=== PATIENT | male | born 1935 | race Caucasian/White ===

== ENCOUNTER → 2016-02-11 | Outpatient (REF) | payer MEDICARE, OTHER ==
[~2016-02-11] MED LIST: ARAV20TA PO; BENA20TA2 PO; BENA20TA6 PO; FLOM5CAP PO; LIPI20TA PO; PRED1TABL PO; PROS5TAB PO; VITA10002 PO; XARE20TA PO
== END ==
LOC: M LAB REF 18:07
PROVIDERS: ATTEND Surgery
DX: C44.612 Basal cell carcinoma of skin of right upper limb, including shoulder (principal)

== ENCOUNTER → 2016-02-20 | Outpatient (CLI) | payer MEDICARE, OTHER ==
--- NOTE | 2016-03-06 02:02 | ECWPNPC ---
PATIENT NAME: DEMETRIS DUFF : 1935 GENDER: MALE VISIT DATE: 02/20/2016 DISCHARGE DATE: 02/20/16 1111 VISIT LOCKED DATE TIME: PHYSICIAN: NHI VILLASENOR PHYSICIAN PAGER NO: [phone] RESOURCE: NHI VILLASENOR REASON FOR APPOINTMENT 1. BACK HISTORY OF PRESENT ILLNESS HISTORY OF PRESENT ILLNESS: HERE FOR F/U.HAD TPI LEFT NECK ON 11-21-15.REPORTS 2 DAYS OF MARKED IMPROVEMENT AND PAIN RETURNED BUT TO A LESSER DEGREE OF INTENSITY.RATING PAIN VAS 5-7/10..PATIENT INQUIRING ABOUT OTHER OPTIONS FOR PAIN CONTROL.INTERESTED IN SURGERY BUT ON THE OTHER HAND HE DOESNT WANT IT.ALSO DISCUSSED MRI OF CERVICAL SPINE.HE WOULD LIKE TO TALK WITH HIS PRIMARY CARE BEFORE PURSUING ANY MORE TREATMENT.HE DOES FEEL CYMBALTA IS SOMEWHAT HELPFUL FOR GENERALIZED JOINT PAIN. PAIN THE PATIENT DESCRIBES THE PAIN... THE PATIENT DESCRIBES THE PAIN... FALL RISK SCREENING: SCREENING :NO FALLS IN THE PAST YEAR CURRENT MEDICATIONS TAKING PREDNISONE 8 MG TABLET 1 TABLET WITH FOOD OR MILK ORALLY ONCE A DAY TAKING FLOMAX 0.4 MG CAPSULE 1 CAPSULE 30 MINUTES AFTER THE SAME MEAL EACH DAY ORALLY ONCE A DAY TAKING BENAZEPRIL HCL 20 MG TABLET 1 TABLET ORALLY ONCE A DAY TAKING VITAMIN B12 1000 MCG TABLET 1 TABLET ORALLY ONCE A DAY TAKING TYLENOL ARTHRITIS PAIN 650 MG TABLET EXTENDED RELEASE 2 TABLETS ORALLY THREE TIMES A DAY NEEDED TAKING MUPIROCIN 2 % OINTMENT 1 APPLICATION TO AFFECTED AREA EXTERNALLY BID PRN TAKING PROSCAR 5 MG TABLET TAKE ONE TABLET BY MOUTH EVERY DAY TAKING CYMBALTA 30 MG CAPSULE DELAYED RELEASE PARTICLES 1 CAPSULE ORALLY ONCE A DAY TAKING SOMA 350 MG TABLET 1 ORALLY AT BEDTIME IF NEEDED FOR PAIN TAKING XARELTO 20 MG TABLET 1 TAB(S) ORAL DAILY TAKING FUROSEMIDE 20 MG TABLET 1/2 TABLET ORALLY ONCE A DAY NEEDED FOR EDEMA TAKING ARAVA 20 MG TABLET 1 TABLET ORALLY ONCE A DAY TAKING LIPITOR 20 MG TABLET 1 TABLET ORALLY ONCE A DAY NOT-TAKING ATORVASTATIN CALCIUM 20 MG TABLET 1 TABLET ORALLY ONCE A DAY, NOTES: 1016 AM MEDICATION LIST REVIEWED AND RECONCILED WITH THE PATIENT PAST MEDICAL HISTORY 01/20/07 ACUTE THROMBOSIS L LESSER SAPHENOUS VEIN (SUPERFICIAL THROMBOPHLEBITIS) NO DVT DVT/PE 01/16 HYPERTENSION HYPERCHOLESTEROLEMIA 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 SERONEG RA-- WAS STARTED [place] IN [place], ALL RHEUM TESTS WERE NEG (RAIZA, RF ETC). HAS INITIAL RESPONSE SO WAS PRESUMED HE HAS INFLAMMATORY ARTHRITIS OF SOME KIND. ANEMIA 11/23, IRON STUDIES NL ALLERGIES N.K.D.A. SOCIAL HISTORY GENERAL: TOBACCO USE ARE YOU A:NONSMOKER LEARNING BARRIERS / SPECIAL NEEDS ORIENTED TO PLAN OF CARE: PATIENT, PAIN MANAGEMENT PATIENT, ORIENTED TO PLAN OF CARE: PATIENT, PAIN MANAGEMENT PATIENT. NEW PATIENT PAIN DIARY TODAY'S VISITNOTES FROM 0-10, WHAT LEVEL IS YOUR PAIN TODAY?0 PAIN CLINIC PFS, CLERGY, PUBLIC HEALTH REFERRALS PFS REFERRAL NEEDED?NO CLERGY REFERRAL NEEDED?NO PUBLIC HEALTH REFERRAL NEEDED?NO WAS THE PROVIDER NOTIFIED OF ANY PERTINENT INFO?NO PFS REFERRAL NEEDED?NO CLERGY REFERRAL NEEDED?NO PUBLIC HEALTH REFERRAL NEEDED?NO WAS THE PROVIDER NOTIFIED OF ANY PERTINENT INFO?NO REVIEW OF SYSTEMS CONSTITUTIONAL: ANY CHANGE IN YOUR MEDICAL CONDITION? NO . CHILLS NO . FEVER NO . INFECTION: DO YOU HAVE NEW INFECTIONS? NO . DO YOU HAVE HISTORY OF MRSA? NO . MUSCULOSKELETAL: ANY NEW PATTERNS OF PAIN OR NUMBNESS? NO . GASTROENTEROLOGY: ANY NEW CHANGE IN BOWEL CONTROL? NO . GENITOURINARY: ANY NEW CHANGE IN BLADDER CONTROL? NO . IS THERE A CHANCE YOU COULD BE ? NO . HEMATOLOGY/LYMPH: DO YOU TAKE ANY BLOOD THINNERS? (FOR EXAMPLE- COUMADIN, PLAVIX, AGGRENOX, PLATEL, PRADAXA, OR XARELTO) YES, XARELTO . WHEN WAS YOUR LAST DOSE? DATE:02/19/16 TIME: 2200 . NEUROLOGY: HAVE YOU FALLEN IN THE PAST 6 MONTHS? NO . ANY NEW EXTREMITY NUMBNESS OR WEAKNESS? NO . CARDIOLOGY: DO YOU HAVE A PACEMAKER OR DEFIBRILLATOR? NO . RESPIRATORY: HAVE YOU BEEN SICK IN THE PAST WEEK? NO . FEVER NO . FLU LIKE SYMPTOMS? NO . COUGH NO . INTEGUMENTARY: DO YOU HAVE ANY RASHES OR OPEN SORES? NO . ALLERGIC/IMMUNO: ARE YOU ALLERGIC TO SHELLFISH OR IV DYE? NO . ANY NEW ALLERGIES? NO . PSYCHIATRIC: DO YOU HAVE THOUGHTS OF HURTING YOURSELF OR SOMEONE ELSE? NO . ARE YOU ABUSED, NEGLECTED, OR IN AN UNSAFE ENVIRONMENT? NO . ENDOCRINOLOGY: ARE YOU DIABETIC? NO . OTHER: DO YOU NEED ANY PRESCRIPTIONS? YES . IF YES, PLEASE LIST: CYMBALTA . ANY NEW PROBLEMS WITH YOUR MEDICATIONS? NO . WHEN DID YOU LAST EAT? ____ . WHEN DID YOU LAST DRINK? ____ . WHAT DID YOU LAST DRINK? ____ . NAME OF PERSON DRIVING YOU HOME? ____ . DO YOU HAVE ANY OTHER QUESTIONS OR CONCERNS NO . REVIEWED BY: PROVIDER: NHI THOMAS . VITAL SIGNS WT 172 LBS, HT 67 IN, BMI 26.94 INDEX, BP 127/82 MM HG, HR 72 /MIN, RR 18 /MIN, TEMP 98.5 F, OXYGEN SAT % 97%, NA INITIALS SC 10:20, REVIEWED BY: CS. EXAMINATION GENERAL EXAMINATION: LUNGS:LUNG SOUNDS ARE CLEAR. HEART:HEART RATE REGULAR. MUSCULOSKELETAL:*, MUSCLE STRENGTH TESTING 5/5 BILATERAL LOWER EXTREMITIES. PALPATION: MILD PAIN OVER L/S SPINE. MILD PAIN OVER L/S PARSPINALS. 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 THEY WERE ADVISED THAT THIS WILL IMPROVE WEIGHT LOSS AND ALSO DEPRESSION/FIBROMYALGIA SYMPTOMS. ADVISED TO WALK 10 MINUTES EVERY OTHER DAY ON A FLAT SURFACE. EMPHASIZED THE IMPORTANCE OF DOING THIS CONSISTANTLY AND NOT SPORATICALLY TO AVOID INJURY. STRONG ADVISED NOT TO DO MORE THAN 10 MINUTES EVERY OTHER DAY FOR THE FIRST 4 WEEKS.PATIENT REFUSED INFORMATION REGUARDING LUMBAR FACET BLOCK. PROCEDURE CODES G8730 PAIN ASSESS POS TOOL F/U PLAN DOC G8427 DOC MEDS VERIFIED W/PT OR RE FA211 ESTABILISHED PATIENT [facility] FACILITY CHARGE FOLLOW UP 2WK POST (REASON: BILAT. LUMBAR FACET THERAPEU) ELECTRONICALLY SIGNED BY WILLIAM ERICKSON ON 03/03/2016 AT 11:27 AM EST DISCLAIMER : THIS IS A VISIT SUMMARY EXTRACTED FROM THE [employer] CHART. IT IS NOT A COPY OF THE [employer] PROGRESS NOTE. YANET
== END ==
LOC: M PAIN 10:00
PROVIDERS: ATTEND Nurse Practitioner Family
DX: Z09 Encounter for follow-up examination after completed treatment for conditions other than malignant neoplasm (principal); M48.06 Spinal stenosis, lumbar region; M19.90 Unspecified osteoarthritis, unspecified site; I12.9 Hypertensive chronic kidney disease with stage 1 through stage 4 chronic kidney disease, or unspecified chronic kidney disease; N18.3 Chronic kidney disease, stage 3 (moderate); E78.00 Pure hypercholesterolemia, unspecified; E55.9 Vitamin D deficiency, unspecified; M51.34 Other intervertebral disc degeneration, thoracic region; M50.30 Other cervical disc degeneration, unspecified cervical region; D84.9 Immunodeficiency, unspecified; I87.2 Venous insufficiency (chronic) (peripheral); D64.9 Anemia, unspecified; Z79.01 Long term (current) use of anticoagulants; Z79.52 Long term (current) use of systemic steroids; Z79.891 Long term (current) use of opiate analgesic; Z79.899 Other long term (current) drug therapy; Z92.241 Personal history of systemic steroid therapy

== ENCOUNTER → 2016-03-06 | Outpatient (CLI) | payer MEDICARE, OTHER ==
[~2016-03-06] MED LIST changes: +BUPIVACAINE HCL 0.25% 30 ML VIAL As Ordered ONE; +ISOVUE-M 300 61% 15ML VIAL (Q9967) As Ordered ONE; +LIDOCAINE 1% SDV INJ 30 ML VIAL As Ordered ONE; +TRIAMCINOLONE ACETONIDE SUSP 40 MG/ML VIAL (J3301) As Ordered ONE
--- NOTE | 2016-03-06 10:52 | REP ---
PARTIAL LUMBAR SPINE SERIES: Two views. HISTORY: Facet injection for pain. 24 seconds of fluoroscopy time is reported. FINDINGS: A sequence of two fluoroscopically obtained intraprocedural spot radiographs of the lumbar spine document needle position and contrast injection associated with lumbar facet injection procedure. Signed by Romie Herrera MD 03/06/2016 01:51 P
--- NOTE | 2016-03-10 00:30 | ECWPNPC ---
PATIENT NAME: DEMETRIS DUFF : 1935 GENDER: MALE VISIT DATE: 03/06/2016 DISCHARGE DATE: 03/06/16 1037 VISIT LOCKED DATE TIME: PHYSICIAN: AURY RIVAS PHYSICIAN PAGER NO: [phone] RESOURCE: AURY RIVAS REASON FOR APPOINTMENT 1. LUMBAR FACET HISTORY OF PRESENT ILLNESS HISTORY OF PRESENT ILLNESS: PAIN THE PATIENT DESCRIBES THE PAIN... FALL RISK SCREENING: SCREENING :NO FALLS IN THE PAST YEAR CURRENT MEDICATIONS TAKING FLOMAX 0.4 MG CAPSULE 1 CAPSULE 30 MINUTES AFTER THE SAME MEAL EACH DAY ORALLY ONCE A DAY, NOTES: 03/06/16699 TAKING BENAZEPRIL HCL 20 MG TABLET 1 TABLET ORALLY ONCE A DAY, NOTES: 03/06/16699 TAKING VITAMIN B12 1000 MCG TABLET 1 TABLET ORALLY ONCE A DAY, NOTES: 03/05/16699 TAKING TYLENOL ARTHRITIS PAIN 650 MG TABLET EXTENDED RELEASE 2 TABLETS ORALLY THREE TIMES A DAY NEEDED, NOTES: 03/05/162199 TAKING MUPIROCIN 2 % OINTMENT 1 APPLICATION TO AFFECTED AREA EXTERNALLY BID PRN, NOTES: 2-3 DAYS TAKING PROSCAR 5 MG TABLET TAKE ONE TABLET BY MOUTH EVERY DAY , NOTES: 03/06/16699 TAKING SOMA 350 MG TABLET 1 ORALLY AT BEDTIME IF NEEDED FOR PAIN, NOTES: 3-4 DAYS TAKING XARELTO 20 MG TABLET 1 TAB(S) ORAL DAILY, NOTES: 03/02/162199 TAKING FUROSEMIDE 20 MG TABLET 1/2 TABLET ORALLY ONCE A DAY NEEDED FOR EDEMA, NOTES: 03/05/16699 TAKING ARAVA 20 MG TABLET 1 TABLET ORALLY ONCE A DAY, NOTES: 03/06/16699 TAKING LIPITOR 20 MG TABLET 1 TABLET ORALLY ONCE A DAY, NOTES: 03/06/16699 TAKING CYMBALTA 30 MG CAPSULE DELAYED RELEASE PARTICLES 1 CAPSULE ORALLY ONCE A DAY, NOTES: 03/06/16699 TAKING PREDNISONE 5 MG TABLET 1 TABLET WITH FOOD OR MILK ORALLY ONCE A DAY, NOTES: 03/06/16699 NOT-TAKING ATORVASTATIN CALCIUM 20 MG TABLET 1 TABLET ORALLY ONCE A DAY, NOTES: 10-12-16 AM MEDICATION LIST REVIEWED AND RECONCILED WITH THE PATIENT PAST MEDICAL HISTORY 01/20/07 ACUTE THROMBOSIS L LESSER SAPHENOUS VEIN (SUPERFICIAL THROMBOPHLEBITIS) NO DVT DVT/PE 01/16 HYPERTENSION HYPERCHOLESTEROLEMIA 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 SERONEG RA-- WAS STARTED [place] IN [place], ALL RHEUM TESTS WERE NEG (RAIZA, RF ETC). HAS INITIAL RESPONSE SO WAS PRESUMED HE HAS INFLAMMATORY ARTHRITIS OF SOME KIND. ANEMIA 11/23, IRON STUDIES NL ALLERGIES N.K.D.A. SURGICAL HISTORY SOCIAL HISTORY GENERAL: TOBACCO USE ARE YOU A:NONSMOKER LEARNING BARRIERS / SPECIAL NEEDS ORIENTED TO PLAN OF CARE: PATIENT, PAIN MANAGEMENT PATIENT, ORIENTED TO PLAN OF CARE: PATIENT, PAIN MANAGEMENT PATIENT. NEW PATIENT PAIN DIARY TODAY'S VISITNOTES FROM 0-10, WHAT LEVEL IS YOUR PAIN TODAY?0 PAIN CLINIC PFS, CLERGY, PUBLIC HEALTH REFERRALS PFS REFERRAL NEEDED?NO CLERGY REFERRAL NEEDED?NO PUBLIC HEALTH REFERRAL NEEDED?NO WAS THE PROVIDER NOTIFIED OF ANY PERTINENT INFO?NO PFS REFERRAL NEEDED?NO CLERGY REFERRAL NEEDED?NO PUBLIC HEALTH REFERRAL NEEDED?NO WAS THE PROVIDER NOTIFIED OF ANY PERTINENT INFO?NO HOSPITALIZATION/MAJOR DIAGNOSTIC PROCEDURE DENIES PAST HOSPITALIZATION REVIEW OF SYSTEMS CONSTITUTIONAL: ANY CHANGE IN YOUR MEDICAL CONDITION? NO . CHILLS NO . FEVER NO . INFECTION: DO YOU HAVE NEW INFECTIONS? NO . DO YOU HAVE HISTORY OF MRSA? NO . MUSCULOSKELETAL: ANY NEW PATTERNS OF PAIN OR NUMBNESS? NO . GASTROENTEROLOGY: ANY NEW CHANGE IN BOWEL CONTROL? NO . GENITOURINARY: ANY NEW CHANGE IN BLADDER CONTROL? NO . IS THERE A CHANCE YOU COULD BE ? NO . HEMATOLOGY/LYMPH: DO YOU TAKE ANY BLOOD THINNERS? (FOR EXAMPLE- COUMADIN, PLAVIX, AGGRENOX, PLATEL, PRADAXA, OR XARELTO) YES, XARELTO . WHEN WAS YOUR LAST DOSE? DATE: 03/02/16 TIME: 2200 . NEUROLOGY: HAVE YOU FALLEN IN THE PAST 6 MONTHS? NO . ANY NEW EXTREMITY NUMBNESS OR WEAKNESS? NO . CARDIOLOGY: DO YOU HAVE A PACEMAKER OR DEFIBRILLATOR? NO . RESPIRATORY: HAVE YOU BEEN SICK IN THE PAST WEEK? NO . FEVER NO . FLU LIKE SYMPTOMS? NO . COUGH NO . INTEGUMENTARY: DO YOU HAVE ANY RASHES OR OPEN SORES? NO . ALLERGIC/IMMUNO: ARE YOU ALLERGIC TO SHELLFISH OR IV DYE? NO . ANY NEW ALLERGIES? NO . PSYCHIATRIC: DO YOU HAVE THOUGHTS OF HURTING YOURSELF OR SOMEONE ELSE? NO . ARE YOU ABUSED, NEGLECTED, OR IN AN UNSAFE ENVIRONMENT? NO . ENDOCRINOLOGY: ARE YOU DIABETIC? NO . OTHER: DO YOU NEED ANY PRESCRIPTIONS? NO . IF YES, PLEASE LIST: ____ . ANY NEW PROBLEMS WITH YOUR MEDICATIONS? NO . WHEN DID YOU LAST EAT? LAST NIGHT . WHEN DID YOU LAST DRINK? 0700 . WHAT DID YOU LAST DRINK? WATER . NAME OF PERSON DRIVING YOU HOME? MAGAN DUFF . DO YOU HAVE ANY OTHER QUESTIONS OR CONCERNS NO . REVIEWED BY: PROVIDER: . VITAL SIGNS WT 172 LBS, HT 67 IN, BMI 26.94 INDEX, BP 142/67 MM HG, HR 65 /MIN, RR 16 /MIN, TEMP 97.2 F, OXYGEN SAT % 99, NA INITIALS TL 0921, REVIEWED BY: LS. ASSESSMENTS SPONDYLOSIS WITHOUT MYELOPATHY OR RADICULOPATHY, LUMBAR REGION - M47.816 (PRIMARY) SPONDYLOSIS WITHOUT MYELOPATHY OR RADICULOPATHY, LUMBOSACRAL REGION - M47.817 PROCEDURES PN LUMBAR FACET BLOCK THERAPEUTIC PRE PROCEDURE DIAGNOSIS LUMBOSACRAL SPONDYLOSIS, LUMBAR SPONDYLOSIS POST PROCEDURE DIAGNOSIS LUMBOSACRAL SPONDYLOSIS, LUMBAR SPONDYLOSIS PROCEDURE BILATERAL L4-L5 AND BILATERAL L5-S1 FACET THERAPEUTIC BLOCK SURGEON DR. AURY RIVAS TOWEL SEWER NONE ANESTHESIA LOCAL PRE PROCEDURE NOTE THE PATIENT HAS A HISTORY OF CHRONIC LOW BACK PAIN. I EVALUATE THE PATIENT AND REVIEWED THE CHART. I WENT OVER THE RISKS, ALTERNATIVES, AND BENEFITS ASSOCIATED WITH THIS PROCEDURE. THE PATIENT WOULD LIKE TO PROCEED AND GIVE CONSENT TO PERFORMED THE PROCEDURE. THE PATIENT DENIES UNEXPLAINABLE WEIGHT LOSS, FEVER, CHILLS, OR NEW CHANGES IN URINARY OR BOWEL CONTROL DESCRIPTION OF PROCEDURE THE PATIENT WAS BROUGHT TO THE PROCEDURE ROOM AND PLACED IN THE PRONE POSITION. THE LUMBOSACRAL AREA WAS CLEANED WITH CHLORAPREP SOLUTION AND DRAPED ASEPTICALLY. THE PROCEDURE WAS DONE UNDER STERILE CONDITIONS. I CHECKED LATERALITY AND THE LEVEL WHERE THE PROCEDURE WAS GOING TO BE PERFORMED WITH THE PATIENT AND THE SUPPORTING STAFF AT THE MOMENT OF THE TIME OUT IN THE PROCEDURE ROOM. UNDER FLUOROSCOPIC GUIDANCE, THE TARGET POINT WAS SELECTED AT THE LEFT AND RIGHT L4-L5 AND LEFT AND RIGHT L5-S1 FACET JOINT. TARGET POINT WAS SELECTED AFTER LATERAL ROTATION AND TILT OF THE MAGNIFIER OF THE C-ARM. LIDOCAINE 0.5% WAS USED TO NUMB THE SKIN AND THE SUBCUTANEOUS TISSUE BELOW IT. SPINAL NEEDLES, 22-GAUGE, WERE ADVANCED UNDER FLUOROSCOPIC GUIDANCE AND FOLLOWING PATIENT FEEDBACK UNTIL THE TARGETS WERE TOUCHED. THE POSITION OF THE NEEDLES WAS VERIFIED WITH AP AND LATERAL VIEWS. AFTER PROPER POSITION OF THE NEEDLES WAS ACHIEVED, ISOVUE-M DYE 30% 0.1 ML WAS INJECTED SHOWING ADEQUATE SPREAD OF THE DYE. THEN A SOLUTION OF 1.9 ML OF BUPIVACAINE 0.125% OF KENALOG 10 MG WAS INJECTED AT EACH SITE. THERE WAS NO EVIDENCE OF BLOOD, PARESTHESIA OR CEREBROSPINAL FLUID DURING THE PROCEDURE. THE PATIENT WAS SENT TO THE RECOVERY ROOM. THE PATIENT WAS MOVING THE EXTREMITIES AND DOING WELL. THERE WAS NO COMPLICATION DURING THE PROCEDURE. FLUOROSCOPY TIME WAS 24 SECONDS POST PROCEDURE NOTE THE PATIENT WILL BE SEEN IN A FOLLOW UP IN THE NEXT FEW WEEKS. INSTRUCTIONS WERE GIVEN, QUESTIONS WERE ANSWERED, AND THE PATIENT EXPRESSED UNDERSTANDING AND AGREES WITH THE PLAN. INSTRUCTIONS WERE GIVEN, QUESTIONS WERE ANSWERED, PATIENT REPORTS UNDERSTANDING AND AGREES WITH THE PLAN. I, ISABELLE WILDER, DOCUMENTED THE ABOVE INFORMATION ACTING A SCRIBE FOR DR. RIVAS. I HAVE REVIEWED THE ABOVE DOCUMENT, WRITTEN BY ISABELLE IWLDER SCRIBLandy AND I VERIFY THAT IT IS ACCURATE. DIAGNOSTIC IMAGING [facility] FACET BLOCK (PAIN)[id number] PROCEDURE CODES 62120 INJ PARAVERT F JNT L/S 1 LEV 72587 INJ PARAVERT F JNT L/S 2 LEV 6045F RADXPS IN END [id number] PXD FOLLOW UP 3 WEEKS ELECTRONICALLY SIGNED BY AURY RIVAS MD ON 03/09/2016 AT 08:52 PM EST DISCLAIMER : THIS IS A VISIT SUMMARY EXTRACTED FROM THE [employer] CHART. IT IS NOT A COPY OF THE [employer] PROGRESS NOTE. MTDD
== END ==
LOC: M PAIN 09:40
PROVIDERS: ATTEND Anesthesiology
DX: G89.29 Other chronic pain (principal); M47.816 Spondylosis without myelopathy or radiculopathy, lumbar region; M47.817 Spondylosis without myelopathy or radiculopathy, lumbosacral region; E78.00 Pure hypercholesterolemia, unspecified; I65.21 Occlusion and stenosis of right carotid artery; I87.2 Venous insufficiency (chronic) (peripheral); N18.3 Chronic kidney disease, stage 3 (moderate); M19.90 Unspecified osteoarthritis, unspecified site; E55.9 Vitamin D deficiency, unspecified; D64.9 Anemia, unspecified; M50.93 Cervical disc disorder, unspecified, cervicothoracic region; M51.34 Other intervertebral disc degeneration, thoracic region; D84.9 Immunodeficiency, unspecified; Z79.01 Long term (current) use of anticoagulants; Z79.891 Long term (current) use of opiate analgesic; Z79.52 Long term (current) use of systemic steroids
CPT/HCPCS: 64493; 64494; J3301; Q9967

== ENCOUNTER → 2016-03-23 | Outpatient (CLI) | payer MEDICARE, OTHER ==
[~2016-03-23] MED LIST changes: -BUPIVACAINE HCL 0.25% 30 ML VIAL As Ordered ONE; -ISOVUE-M 300 61% 15ML VIAL (Q9967) As Ordered ONE; -LIDOCAINE 1% SDV INJ 30 ML VIAL As Ordered ONE; -TRIAMCINOLONE ACETONIDE SUSP 40 MG/ML VIAL (J3301) As Ordered ONE
--- NOTE | 2016-03-24 01:25 | ECWPNPC ---
PATIENT NAME: DEMETRIS DUFF : 1935 GENDER: MALE VISIT DATE: 03/23/2016 DISCHARGE DATE: 03/23/16 1040 VISIT LOCKED DATE TIME: PHYSICIAN: NHI VILLASENOR PHYSICIAN PAGER NO: [phone] RESOURCE: NHI VILLASENOR REASON FOR APPOINTMENT 1. POST PROCEDURE HISTORY OF PRESENT ILLNESS HISTORY OF PRESENT ILLNESS: HERE FOR POST PROCEDURE F/U.HAD BILAT. LUMBAR L4-5/L5-S1 ON 03-06-16.REPORTS >75 % IMPROVEMENT SINCE PROCEDURE.REPORTS THAT CONSTANT PAIN HAS RESOLVED.RATING PAIN VAS 5/10.PAIN IS AGGREVATED BY INCREASED ACTIVITY.RELEAVED WITH SITTING. FALL RISK SCREENING: SCREENING :NO FALLS IN THE PAST YEAR CURRENT MEDICATIONS TAKING FLOMAX 0.4 MG CAPSULE 1 CAPSULE 30 MINUTES AFTER THE SAME MEAL EACH DAY ORALLY ONCE A DAY, NOTES: 03/06/16699 TAKING BENAZEPRIL HCL 20 MG TABLET 1 TABLET ORALLY ONCE A DAY, NOTES: 03/06/16699 TAKING VITAMIN B12 1000 MCG TABLET 1 TABLET ORALLY ONCE A DAY, NOTES: 03/05/16699 TAKING TYLENOL ARTHRITIS PAIN 650 MG TABLET EXTENDED RELEASE 2 TABLETS ORALLY THREE TIMES A DAY NEEDED, NOTES: 03/05/162199 TAKING MUPIROCIN 2 % OINTMENT 1 APPLICATION TO AFFECTED AREA EXTERNALLY BID PRN, NOTES: 2-3 DAYS TAKING PROSCAR 5 MG TABLET TAKE ONE TABLET BY MOUTH EVERY DAY , NOTES: 03/06/16699 TAKING SOMA 350 MG TABLET 1 ORALLY AT BEDTIME IF NEEDED FOR PAIN, NOTES: 3-4 DAYS TAKING XARELTO 20 MG TABLET 1 TAB(S) ORAL DAILY, NOTES: 03/02/162199 TAKING FUROSEMIDE 20 MG TABLET 1/2 TABLET ORALLY ONCE A DAY NEEDED FOR EDEMA, NOTES: 03/05/16699 TAKING ARAVA 20 MG TABLET 1 TABLET ORALLY ONCE A DAY, NOTES: 03/06/16699 TAKING LIPITOR 20 MG TABLET 1 TABLET ORALLY ONCE A DAY, NOTES: 03/06/16699 TAKING CYMBALTA 30 MG CAPSULE DELAYED RELEASE PARTICLES 1 CAPSULE ORALLY ONCE A DAY, NOTES: 03/06/16699 TAKING PREDNISONE 5 MG TABLET 1 TABLET WITH FOOD OR MILK ORALLY ONCE A DAY, NOTES: 03/06/16699 TAKING PREDNISONE 1 MG TABLET 3 TABS ORALLY DAILY NOT-TAKING ATORVASTATIN CALCIUM 20 MG TABLET 1 TABLET ORALLY ONCE A DAY, NOTES: 1012-16 AM MEDICATION LIST REVIEWED AND RECONCILED WITH THE PATIENT PAST MEDICAL HISTORY 01/20/07 ACUTE THROMBOSIS L LESSER SAPHENOUS VEIN (SUPERFICIAL THROMBOPHLEBITIS) NO DVT DVT/PE 01/16 HYPERTENSION HYPERCHOLESTEROLEMIA PMR ON CHRONIC PREDNISONE SINCE 2007--DOESN'T TOLERATE WEAN BELOW 8 MG--NORMAL DEXA 2011 R LUNG NODULE--CTS OF CHEST IN [place] YEARLY X3; NEG- PET SCAN, W/U DONE IN [place] 1 - 39% STENOSIS R INTERNAL CAROTID A. 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 SERONEG RA-- WAS STARTED ON ARAVA IN [place], ALL RHEUM TESTS WERE NEG (RAIZA, RF ETC). HAS INITIAL RESPONSE SO WAS PRESUMED HE HAS INFLAMMATORY ARTHRITIS OF SOME KIND. ANEMIA 11/23, IRON STUDIES NL ALLERGIES N.K.D.A. SOCIAL HISTORY GENERAL: TOBACCO USE ARE YOU A:NONSMOKER LEARNING BARRIERS / SPECIAL NEEDS ORIENTED TO PLAN OF CARE: PATIENT, PAIN MANAGEMENT PATIENT, ORIENTED TO PLAN OF CARE: PATIENT, PAIN MANAGEMENT PATIENT. NEW PATIENT PAIN DIARY TODAY'S VISITNOTES FROM 0-10, WHAT LEVEL IS YOUR PAIN TODAY?0 PAIN CLINIC PFS, CLERGY, PUBLIC HEALTH REFERRALS PFS REFERRAL NEEDED?NO CLERGY REFERRAL NEEDED?NO PUBLIC HEALTH REFERRAL NEEDED?NO WAS THE PROVIDER NOTIFIED OF ANY PERTINENT INFO?NO PFS REFERRAL NEEDED?NO CLERGY REFERRAL NEEDED?NO PUBLIC HEALTH REFERRAL NEEDED?NO WAS THE PROVIDER NOTIFIED OF ANY PERTINENT INFO?NO REVIEW OF SYSTEMS CONSTITUTIONAL: ANY CHANGE IN YOUR MEDICAL CONDITION? NO . CHILLS NO . FEVER NO . INFECTION: DO YOU HAVE NEW INFECTIONS? NO . DO YOU HAVE HISTORY OF MRSA? NO . MUSCULOSKELETAL: ANY NEW PATTERNS OF PAIN OR NUMBNESS? NO . GASTROENTEROLOGY: ANY NEW CHANGE IN BOWEL CONTROL? NO . GENITOURINARY: ANY NEW CHANGE IN BLADDER CONTROL? NO . IS THERE A CHANCE YOU COULD BE ? NO . HEMATOLOGY/LYMPH: DO YOU TAKE ANY BLOOD THINNERS? (FOR EXAMPLE- COUMADIN, PLAVIX, AGGRENOX, PLATEL, PRADAXA, OR XARELTO) YES, XARELTO . WHEN WAS YOUR LAST DOSE? DATE: TIME: . NEUROLOGY: HAVE YOU FALLEN IN THE PAST 6 MONTHS? NO . ANY NEW EXTREMITY NUMBNESS OR WEAKNESS? NO . CARDIOLOGY: DO YOU HAVE A PACEMAKER OR DEFIBRILLATOR? NO . RESPIRATORY: HAVE YOU BEEN SICK IN THE PAST WEEK? NO . FEVER NO . FLU LIKE SYMPTOMS? NO . COUGH NO . INTEGUMENTARY: DO YOU HAVE ANY RASHES OR OPEN SORES? NO . ALLERGIC/IMMUNO: ARE YOU ALLERGIC TO SHELLFISH OR IV DYE? NO . ANY NEW ALLERGIES? NO . PSYCHIATRIC: DO YOU HAVE THOUGHTS OF HURTING YOURSELF OR SOMEONE ELSE? NO . ARE YOU ABUSED, NEGLECTED, OR IN AN UNSAFE ENVIRONMENT? NO . ENDOCRINOLOGY: ARE YOU DIABETIC? NO . OTHER: DO YOU NEED ANY PRESCRIPTIONS? YES, CYMBALTA, SOMA . IF YES, PLEASE LIST: ____ . ANY NEW PROBLEMS WITH YOUR MEDICATIONS? NO . WHEN DID YOU LAST EAT? ____ . WHEN DID YOU LAST DRINK? ____ . WHAT DID YOU LAST DRINK? ____ . NAME OF PERSON DRIVING YOU HOME? ____ . DO YOU HAVE ANY OTHER QUESTIONS OR CONCERNS NO . REVIEWED BY: PROVIDER: NHI THOMAS . VITAL SIGNS WT 174 LBS, HT 67 IN, BMI 27.25 INDEX, BP 145/67 MM HG, HR 71 /MIN, RR 18 /MIN, TEMP 98.4 F, OXYGEN SAT % 98, NA INITIALS TL 0926, REVIEWED BY: AD. EXAMINATION GENERAL EXAMINATION: LUNGS:LUNG SOUNDS ARE CLEAR. HEART:HEART RATE REGULAR. MUSCULOSKELETAL:*, MUSCLE STRENGTH TESTING 5/5 BILATERAL LOWER EXTREMITIES. PALPATION: MILD PAIN OVER L/S SPINE. MILD PAIN OVER L/S PARSPINALS. 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 (PRIMARY) GENERALIZED ARTHRITIS - M19.90 TREATMENT SPONDYLOSIS WITHOUT MYELOPATHY OR RADICULOPATHY, LUMBAR REGION REFILL SOMA TABLET, 350 MG, 1, ORALLY, AT BEDTIME IF NEEDED FOR PAIN, 10 DAY(S), 15, REFILLS 0, NOTES: 3-4 DAYS REFILL CYMBALTA CAPSULE DELAYED RELEASE PARTICLES, 30 MG, 1 CAPSULE, ORALLY, ONCE A DAY, 90 DAY(S), 90 CAPSULE, REFILLS 1, NOTES: 03/06/16 0700 PROCEDURE CODES FA211 ESTABILISHED PATIENT [facility] FACILITY CHARGE G8783 BP SCR PRFRM RCMDD DEFIND SCR INTVL G8730 PAIN ASSESS POS TOOL F/U PLAN DOC 3016F PT SCRND UNHLTH[place] 1123F ACP DISCUSS/DSCN MKR DOCD 1036F TOBACCO NON-USER 0518F FALL PLAN OF CARE DOCD G8427 DOC MEDS VERIFIED W/PT OR RE G8420 BMI<30 AND >=22 CALC & DOCU 3288F FALL RISK ASSESSMENT DOCD FOLLOW UP 2 MONTHS ELECTRONICALLY SIGNED BY WILLIAM ERICKSON ON 03/23/2016 AT 01:21 PM EST DISCLAIMER : THIS IS A VISIT SUMMARY EXTRACTED FROM THE [employer] CHART. IT IS NOT A COPY OF THE [employer] PROGRESS NOTE. MTDD
== END ==
LOC: M PAIN 09:20
PROVIDERS: ATTEND Nurse Practitioner Family
DX: Z09 Encounter for follow-up examination after completed treatment for conditions other than malignant neoplasm (principal); G89.29 Other chronic pain; M47.816 Spondylosis without myelopathy or radiculopathy, lumbar region; M48.06 Spinal stenosis, lumbar region; M19.90 Unspecified osteoarthritis, unspecified site; I12.9 Hypertensive chronic kidney disease with stage 1 through stage 4 chronic kidney disease, or unspecified chronic kidney disease; E78.00 Pure hypercholesterolemia, unspecified; N18.3 Chronic kidney disease, stage 3 (moderate); M51.34 Other intervertebral disc degeneration, thoracic region; D63.1 Anemia in chronic kidney disease; E55.9 Vitamin D deficiency, unspecified; Z86.718 Personal history of other venous thrombosis and embolism; Z79.01 Long term (current) use of anticoagulants; Z79.52 Long term (current) use of systemic steroids; Z79.899 Other long term (current) drug therapy; Z79.891 Long term (current) use of opiate analgesic

== ENCOUNTER → 2016-05-21 | Outpatient (CLI) | payer MEDICARE, OTHER ==
--- NOTE | 2016-06-05 01:47 | ECWPNPC ---
PATIENT NAME: DEMETRIS DUFF : 1935 GENDER: MALE VISIT DATE: 05/21/2016 DISCHARGE DATE: 05/21/16 1116 VISIT LOCKED DATE TIME: PHYSICIAN: NHI VILLASENOR PHYSICIAN PAGER NO: [phone] RESOURCE: NHI VILLASENOR REASON FOR APPOINTMENT 1. BACK HISTORY OF PRESENT ILLNESS HISTORY OF PRESENT ILLNESS: PAIN THE PATIENT DESCRIBES THE PAIN... THE PATIENT DESCRIBES THE PAIN... HERE FOR F/U.HAD BILAT. LUMBAR L4-5/L5-S1 ON 03-06-16.REPORTED >75 % IMPROVEMENT POST PROCEDURE.REPORTS THAT CONSTANT PAIN HAS RESOLVED.PAST TWO WEEKS HAS NOTICED MORE ANTERIOR THIGH PAIN.RATING PAIN VAS 6/10.PAIN IS AGGREVATED BY INCREASED ACTIVITY.RELIEVED WITH SITTING. FALL RISK SCREENING: SCREENING :NO FALLS IN THE PAST YEAR CURRENT MEDICATIONS TAKING FLOMAX 0.4 MG CAPSULE 1 CAPSULE 30 MINUTES AFTER THE SAME MEAL EACH DAY ORALLY ONCE A DAY TAKING VITAMIN B12 1000 MCG TABLET 1 TABLET ORALLY ONCE A DAY TAKING TYLENOL ARTHRITIS PAIN 650 MG TABLET EXTENDED RELEASE 2 TABLETS ORALLY THREE TIMES A DAY NEEDED TAKING MUPIROCIN 2 % OINTMENT 1 APPLICATION TO AFFECTED AREA EXTERNALLY BID PRN, NOTES: 2-3 DAYS TAKING PROSCAR 5 MG TABLET TAKE ONE TABLET BY MOUTH EVERY DAY TAKING XARELTO 20 MG TABLET 1 TAB(S) ORAL DAILY TAKING FUROSEMIDE 20 MG TABLET 1/2 TABLET ORALLY ONCE A DAY NEEDED FOR EDEMA TAKING LIPITOR 20 MG TABLET 1 TABLET ORALLY ONCE A DAY, NOTES: 03/06/16699 TAKING PREDNISONE 5 MG TABLET 1 TABLET WITH FOOD OR MILK ORALLY ONCE A DAY, NOTES: 03/06/16699 TAKING PREDNISONE 1 MG TABLET 3 TABS ORALLY DAILY TAKING SOMA 350 MG TABLET 1 ORALLY AT BEDTIME IF NEEDED FOR PAIN, NOTES: 3-4 DAYS TAKING CYMBALTA 30 MG CAPSULE DELAYED RELEASE PARTICLES 1 CAPSULE ORALLY ONCE A DAY, NOTES: 03/06/16699 TAKING BENAZEPRIL HCL 20 MG TABLET 1 TABLET ORALLY ONCE A DAY, NOTES: 03/06/16699 NOT-TAKING ARAVA 20 MG TABLET 1 TABLET ORALLY ONCE A DAY, NOTES: 03/06/16699 NOT-TAKING ATORVASTATIN CALCIUM 20 MG TABLET 1 TABLET ORALLY ONCE A DAY, NOTES: 10-12-16 AM MEDICATION LIST REVIEWED AND RECONCILED WITH THE PATIENT PAST MEDICAL HISTORY 01/20/07 ACUTE THROMBOSIS L LESSER SAPHENOUS VEIN (SUPERFICIAL THROMBOPHLEBITIS) NO DVT DVT/PE 01/16 HYPERTENSION HYPERCHOLESTEROLEMIA PMR ON CHRONIC PREDNISONE SINCE 2007--DOESN'T TOLERATE WEAN BELOW 8 MG--NORMAL DEXA 2011 R LUNG NODULE--CTS OF CHEST IN [place] YEARLY X3; NEG- PET SCAN, W/U DONE IN [place] 1 - 39% STENOSIS R INTERNAL CAROTID A. 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 SERONEG RA-- WAS STARTED ON ARAVA IN [place], ALL RHEUM TESTS WERE NEG (RAIZA, RF ETC). HAS INITIAL RESPONSE SO WAS PRESUMED HE HAS INFLAMMATORY ARTHRITIS OF SOME KIND. ANEMIA 11/23, IRON STUDIES NL SOCIAL HISTORY GENERAL: PAIN CLINIC PFS, CLERGY, PUBLIC HEALTH REFERRALS CLERGY REFERRAL NEEDED?NO WAS THE PROVIDER NOTIFIED OF ANY PERTINENT INFO?NO PFS REFERRAL NEEDED?NO PUBLIC HEALTH REFERRAL NEEDED?NO PATIENT: ____. REVIEW OF SYSTEMS CONSTITUTIONAL: ANY CHANGE IN YOUR MEDICAL CONDITION? NO . CHILLS NO . FEVER NO . INFECTION: DO YOU HAVE NEW INFECTIONS? NO . DO YOU HAVE HISTORY OF MRSA? NO . MUSCULOSKELETAL: ANY NEW PATTERNS OF PAIN OR NUMBNESS? YES PAIN SHOOTING DOWN BOTH LEGS IN THE FRONT/ WHEN PT SITS DOWN IT SUBSIDES . GASTROENTEROLOGY: ANY NEW CHANGE IN BOWEL CONTROL? NO . GENITOURINARY: ANY NEW CHANGE IN BLADDER CONTROL? NO . IS THERE A CHANCE YOU COULD BE ? NO . HEMATOLOGY/LYMPH: DO YOU TAKE ANY BLOOD THINNERS? (FOR EXAMPLE- COUMADIN, PLAVIX, AGGRENOX, PLATEL, PRADAXA, OR XARELTO) YES . WHEN WAS YOUR LAST DOSE? DATE: TIME: . NEUROLOGY: HAVE YOU FALLEN IN THE PAST 6 MONTHS? NO . ANY NEW EXTREMITY NUMBNESS OR WEAKNESS? NO . CARDIOLOGY: DO YOU HAVE A PACEMAKER OR DEFIBRILLATOR? NO . RESPIRATORY: HAVE YOU BEEN SICK IN THE PAST WEEK? NO . FEVER NO . FLU LIKE SYMPTOMS? NO . COUGH NO . INTEGUMENTARY: DO YOU HAVE ANY RASHES OR OPEN SORES? NO . ALLERGIC/IMMUNO: ARE YOU ALLERGIC TO SHELLFISH OR IV DYE? NO . ANY NEW ALLERGIES? NO . PSYCHIATRIC: DO YOU HAVE THOUGHTS OF HURTING YOURSELF OR SOMEONE ELSE? NO . ARE YOU ABUSED, NEGLECTED, OR IN AN UNSAFE ENVIRONMENT? NO . ENDOCRINOLOGY: ARE YOU DIABETIC? NO . OTHER: DO YOU NEED ANY PRESCRIPTIONS? YES CYMBALTA . IF YES, PLEASE LIST: ____ . ANY NEW PROBLEMS WITH YOUR MEDICATIONS? NO . WHEN DID YOU LAST EAT? ____ . WHEN DID YOU LAST DRINK? ____ . WHAT DID YOU LAST DRINK? ____ . NAME OF PERSON DRIVING YOU HOME? ____ . DO YOU HAVE ANY OTHER QUESTIONS OR CONCERNS NO . REVIEWED BY: PROVIDER: NHI THOMAS . VITAL SIGNS WT 161.4 LBS, HT 67 IN, BMI 25.28 INDEX, BP 177/71 MM HG, HR 57 /MIN, RR 18 /MIN, TEMP 97.4 F, OXYGEN SAT % 98%, NA INITIALS SC 10:44, REVIEWED BY: KG, BP STANDING 160/70 MANUAL. 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 (PRIMARY) GENERALIZED ARTHRITIS - M19.90 TREATMENT SPONDYLOSIS WITHOUT MYELOPATHY OR RADICULOPATHY, LUMBAR REGION REFILL CYMBALTA CAPSULE DELAYED RELEASE PARTICLES, 30 MG, 1 CAPSULE, ORALLY, BID, 90 DAY(S), 180 CAPSULE, REFILLS 0, NOTES: 03/06/16 0700 PROCEDURE CODES FA211 ESTABILISHED PATIENT [facility] FACILITY CHARGE G8730 PAIN ASSESS POS TOOL F/U PLAN DOC G8427 DOC MEDS VERIFIED W/PT OR RE DISPOSITION & COMMUNICATION FOLLOW UP 4 WEEKS ELECTRONICALLY SIGNED BY WILLIAM ERICKSON ON 06/04/2016 AT 12:29 PM EDT DISCLAIMER : THIS IS A VISIT SUMMARY EXTRACTED FROM THE [employer] CHART. IT IS NOT A COPY OF THE [employer] PROGRESS NOTE. MTDEma
== END ==
LOC: M PAIN 10:00
PROVIDERS: ATTEND Nurse Practitioner Family
DX: G89.29 Other chronic pain (principal); M47.816 Spondylosis without myelopathy or radiculopathy, lumbar region; M48.06 Spinal stenosis, lumbar region; M19.90 Unspecified osteoarthritis, unspecified site; I12.9 Hypertensive chronic kidney disease with stage 1 through stage 4 chronic kidney disease, or unspecified chronic kidney disease; N18.3 Chronic kidney disease, stage 3 (moderate); E78.00 Pure hypercholesterolemia, unspecified; E55.9 Vitamin D deficiency, unspecified; D89.9 Disorder involving the immune mechanism, unspecified; D64.9 Anemia, unspecified; Z79.52 Long term (current) use of systemic steroids; Z79.899 Other long term (current) drug therapy

== ENCOUNTER → 2016-06-17 | Outpatient (CLI) | payer MEDICARE, OTHER ==
--- NOTE | 2016-06-18 00:18 | ECWPNPC ---
PATIENT NAME: DEMETRIS DUFF : 1935 GENDER: MALE VISIT DATE: 06/17/2016 DISCHARGE DATE: 06/17/16 1040 VISIT LOCKED DATE TIME: PHYSICIAN: NHI VILLASENOR PHYSICIAN PAGER NO: [phone] RESOURCE: NHI VILLASENOR REASON FOR APPOINTMENT 1. BACK HISTORY OF PRESENT ILLNESS HISTORY OF PRESENT ILLNESS: PAIN THE PATIENT DESCRIBES THE PAIN... THE PATIENT DESCRIBES THE PAIN... THE PATIENT DESCRIBES THE PAIN... HERE FOR F/U.HAD BILAT. LUMBAR L4-5/L5-S1 ON 03-06-16.REPORTED >75 % IMPROVEMENT POST PROCEDURE.REPORTS THAT CONSTANT PAIN HAS RESOLVED.PAST TWO WEEKS HAS NOTICED MORE ANTERIOR THIGH PAIN.RATING PAIN VAS 5-9/10.PAIN IS AGGREVATED BY INCREASED ACTIVITY.RELIEVED WITH SITTING.AT HIS LAST VISIT WE INCREASED CYMBALTA TO 30MG BID.HAS NOT NOTICED MUCH IMPROVEMENT IN PAIN.HAVING ALOT OF THIGH AND LEG PAIN. FALL RISK SCREENING: SCREENING :NO FALLS IN THE PAST YEAR CURRENT MEDICATIONS TAKING VITAMIN B12 1000 MCG TABLET 1 TABLET ORALLY ONCE A DAY TAKING TYLENOL ARTHRITIS PAIN 650 MG TABLET EXTENDED RELEASE 2 TABLETS ORALLY THREE TIMES A DAY NEEDED TAKING MUPIROCIN 2 % OINTMENT 1 APPLICATION TO AFFECTED AREA EXTERNALLY BID PRN, NOTES: 2-3 DAYS TAKING SOMA 350 MG TABLET 1 ORALLY AT BEDTIME IF NEEDED FOR PAIN, NOTES: 3-4 DAYS TAKING CYMBALTA 30 MG CAPSULE DELAYED RELEASE PARTICLES 1 CAPSULE ORALLY BID, NOTES: 03/06/16 0700 TAKING PREDNISONE 5 MG TABLET 1 TABLET WITH FOOD OR MILK ORALLY ONCE A DAY, NOTES: 03/06/16 0700 TAKING BENAZEPRIL HCL 20 MG TABLET TAKE ONE TABLET BY MOUTH EVERY DAY TAKING XARELTO 20 MG TABLET TAKE ONE TABLET BY MOUTH EVERY DAY TAKING PREDNISONE 1 MG TABLET TAKE THREE TABLETS BY MOUTH EVERY DAY WITH FOOD OR MILK TAKING FLOMAX 0.4 MG CAPSULE 1 CAPSULE 30 MINUTES AFTER THE SAME MEAL EACH DAY ORALLY ONCE A DAY TAKING PROSCAR 5 MG TABLET TAKE ONE TABLET BY MOUTH EVERY DAY TAKING LIPITOR 20 MG TABLET 1 TABLET ORALLY ONCE A DAY TAKING FUROSEMIDE 20 MG TABLET 1 TAB ORALLY EVERY OTHER DAY DISCONTINUED XARELTO 20 MG TABLET 1 TAB(S) ORAL DAILY MEDICATION LIST REVIEWED AND RECONCILED WITH THE PATIENT PAST MEDICAL HISTORY 01/20/07 ACUTE THROMBOSIS L LESSER SAPHENOUS VEIN (SUPERFICIAL THROMBOPHLEBITIS) NO DVT DVT/PE 01/16 HYPERTENSION HYPERCHOLESTEROLEMIA PMR ON CHRONIC PREDNISONE SINCE 2007--DOESN'T TOLERATE WEAN BELOW 8 MG--NORMAL DEXA 2011 R LUNG NODULE--CTS OF CHEST IN [place] YEARLY X3; NEG- PET SCAN, W/U DONE IN [place] 1 - 39% STENOSIS R INTERNAL CAROTID A. 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 SERONEG RA-- WAS STARTED ON ARAVA IN [place], ALL RHEUM TESTS WERE NEG (RAIZA, RF ETC). HAS INITIAL RESPONSE SO WAS PRESUMED HE HAS INFLAMMATORY ARTHRITIS OF SOME KIND. ANEMIA 11/23, IRON STUDIES NL ALLERGIES N.K.D.A. SURGICAL HISTORY REVIEW OF SYSTEMS CONSTITUTIONAL: ANY CHANGE IN YOUR MEDICAL CONDITION? NO . CHILLS NO . FEVER NO . INFECTION: DO YOU HAVE NEW INFECTIONS? NO . DO YOU HAVE HISTORY OF MRSA? NO . MUSCULOSKELETAL: ANY NEW PATTERNS OF PAIN OR NUMBNESS? YES. PT C/O NEW BILAT LEG PAIN AND NUMBNESS. PAIN RATED 8-9/10 WITH ACTIVITY. PT TREATS PAIN WITH TYLENOL ARTHRITIS 650MG FOR PAIN WHICH BRINGS PAIN DOWN TO 4-5/10. PT STATES HE TAKES THE TYLENOL ARTHRITIS BEFORE BED ALSO WHICH BRINGS PAIN DOWN TO TOLERABLE LEVEL FOR SLEEPING. . GASTROENTEROLOGY: ANY NEW CHANGE IN BOWEL CONTROL? NO . GENITOURINARY: ANY NEW CHANGE IN BLADDER CONTROL? NO . IS THERE A CHANCE YOU COULD BE ? NO . HEMATOLOGY/LYMPH: DO YOU TAKE ANY BLOOD THINNERS? (FOR EXAMPLE- COUMADIN, PLAVIX, AGGRENOX, PLATEL, PRADAXA, OR XARELTO) YES, XARELTO FOR BLOOD CLOTS . WHEN WAS YOUR LAST DOSE? DATE: TIME: . NEUROLOGY: HAVE YOU FALLEN IN THE PAST 6 MONTHS? NO . ANY NEW EXTREMITY NUMBNESS OR WEAKNESS? NO . CARDIOLOGY: DO YOU HAVE A PACEMAKER OR DEFIBRILLATOR? NO . RESPIRATORY: HAVE YOU BEEN SICK IN THE PAST WEEK? NO . FEVER NO . FLU LIKE SYMPTOMS? NO . COUGH NO . INTEGUMENTARY: DO YOU HAVE ANY RASHES OR OPEN SORES? NO . ALLERGIC/IMMUNO: ARE YOU ALLERGIC TO SHELLFISH OR IV DYE? NO . ANY NEW ALLERGIES? NO . PSYCHIATRIC: DO YOU HAVE THOUGHTS OF HURTING YOURSELF OR SOMEONE ELSE? NO . ARE YOU ABUSED, NEGLECTED, OR IN AN UNSAFE ENVIRONMENT? NO . ENDOCRINOLOGY: ARE YOU DIABETIC? NO . OTHER: DO YOU NEED ANY PRESCRIPTIONS? YES, CYMBALTA . IF YES, PLEASE LIST: ____ . ANY NEW PROBLEMS WITH YOUR MEDICATIONS? NO . WHEN DID YOU LAST EAT? ____ . WHEN DID YOU LAST DRINK? ____ . WHAT DID YOU LAST DRINK? ____ . NAME OF PERSON DRIVING YOU HOME? ____ . DO YOU HAVE ANY OTHER QUESTIONS OR CONCERNS NO . REVIEWED BY: PROVIDER: NHI THOMAS . VITAL SIGNS WT 187.0 LBS, HT 67 IN, BMI 29.29 INDEX, BP 123/65 MM HG, HR 70 /MIN, RR 18 /MIN, TEMP 97.4 F, OXYGEN SAT % 98%, SAFE IN ENV? (Y/N) Y, NA INITIALS TL 1002, REVIEWED BY: EM. EXAMINATION GENERAL EXAMINATION: LUNGS:LUNG SOUNDS ARE CLEAR. HEART:HEART RATE REGULAR. MUSCULOSKELETAL:*, MUSCLE STRENGTH TESTING 5/5 BILATERAL LOWER EXTREMITIES. PALPATION: MILD PAIN OVER L/S SPINE. MILD PAIN OVER L/S PARSPINALS. 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 (PRIMARY) GENERALIZED ARTHRITIS - M19.90 TREATMENT SPONDYLOSIS WITHOUT MYELOPATHY OR RADICULOPATHY, LUMBAR REGION CONTINUE CYMBALTA CAPSULE DELAYED RELEASE PARTICLES, 30 MG, 1 CAPSULE, ORALLY, BID, NOTES: 03/06/16 0700 LUMBAR FACET NHI MARTINEZ 06/17/2016 10:32:01 AM > L4/5-L5/S1-BILAT. THERAPEUTIC FACET BLOCK NOTES: STOP XARELTO X3 DAYS SCHEDULE DAY 4. PREVENTIVE MEDICINE PAIN CLINIC TEACHING: PROCEDURE TEACHING FACET BLOCK PROCEDURE REVIEWED WITH PATIENT, VERBALIZED UNDERSTANDING. PROCEDURE CODES FA211 ESTABILISHED PATIENT [facility] FACILITY CHARGE G8820 PAIN ASSESS POS TOOL F/U PLAN DOC G8427 DOC MEDS VERIFIED W/PT OR RE DISPOSITION & COMMUNICATION FOLLOW UP 2WK POST (REASON: BILAT L4/5-L5/S1 THERAPEUTIC FACET BLOCK) ELECTRONICALLY SIGNED BY WILLIAM ERICKSON ON 06/17/2016 AT 02:47 PM EDT DISCLAIMER : THIS IS A VISIT SUMMARY EXTRACTED FROM THE [employer] CHART. IT IS NOT A COPY OF THE [employer] PROGRESS NOTE. MADONNAD
== END ==
LOC: M PAIN 09:40
PROVIDERS: ATTEND Nurse Practitioner Family
DX: G89.29 Other chronic pain (principal); M47.816 Spondylosis without myelopathy or radiculopathy, lumbar region; M48.06 Spinal stenosis, lumbar region; M19.90 Unspecified osteoarthritis, unspecified site; I12.9 Hypertensive chronic kidney disease with stage 1 through stage 4 chronic kidney disease, or unspecified chronic kidney disease; E78.00 Pure hypercholesterolemia, unspecified; M35.3 Polymyalgia rheumatica; R91.1 Solitary pulmonary nodule; E55.9 Vitamin D deficiency, unspecified; N40.0 Benign prostatic hyperplasia without lower urinary tract symptoms; M51.34 Other intervertebral disc degeneration, thoracic region; I87.2 Venous insufficiency (chronic) (peripheral); N18.3 Chronic kidney disease, stage 3 (moderate); D64.9 Anemia, unspecified; Z86.718 Personal history of other venous thrombosis and embolism; Z79.52 Long term (current) use of systemic steroids; Z79.01 Long term (current) use of anticoagulants; Z79.899 Other long term (current) drug therapy

== ENCOUNTER → 2016-07-03 | Outpatient (CLI) | payer MEDICARE, OTHER ==
[~2016-07-03] MED LIST changes: +BUPIVACAINE HCL 0.25% 30 ML VIAL As Ordered ONE; +ISOVUE-M 300 61% 15ML VIAL (Q9967) As Ordered ONE; +LIDOCAINE 1% SDV INJ 30 ML VIAL As Ordered ONE; +TRIAMCINOLONE ACETONIDE SUSP 40 MG/ML VIAL (J3301) As Ordered ONE
--- NOTE | 2016-07-03 11:53 | REP ---
Partial lumbar spine series: Four views. History: Bilateral lumbar spine facet injection for pain. 23 seconds of fluoroscopy time is reported. Findings: A sequence of four fluoroscopically obtained last image hold procedural spot radiographs of the lumbar spine document needle position and contrast injection associated with lumbar spine injection procedure. Signed by Romie Herrera MD 07/03/2016 02:06 P
--- NOTE | 2016-07-12 23:45 | ECWPNPC ---
PATIENT NAME: DEMETRIS DUFF : 1935 GENDER: MALE VISIT DATE: 07/03/2016 DISCHARGE DATE: 07/03/16 1131 VISIT LOCKED DATE TIME: PHYSICIAN: AURY RIVAS PHYSICIAN PAGER NO: [phone] RESOURCE: AURY RIVAS REASON FOR APPOINTMENT 1. FACET BLOCK HISTORY OF PRESENT ILLNESS HISTORY OF PRESENT ILLNESS: PAIN THE PATIENT DESCRIBES THE PAIN... FALL RISK SCREENING: SCREENING :NO FALLS IN THE PAST YEAR CURRENT MEDICATIONS TAKING VITAMIN B12 1000 MCG TABLET 1 TABLET ORALLY ONCE A DAY, NOTES: 07 TAKING TYLENOL ARTHRITIS PAIN 650 MG TABLET EXTENDED RELEASE 2 TABLETS ORALLY THREE TIMES A DAY NEEDED, NOTES: 2199 TAKING MUPIROCIN 2 % OINTMENT 1 APPLICATION TO AFFECTED AREA EXTERNALLY BID PRN, NOTES: 2-3 DAYS TAKING SOMA 350 MG TABLET 1 ORALLY AT BEDTIME IF NEEDED FOR PAIN, NOTES: WEEKS TAKING PREDNISONE 5 MG TABLET 1 TABLET WITH FOOD OR MILK ORALLY ONCE A DAY, NOTES: 07 TAKING BENAZEPRIL HCL 20 MG TABLET TAKE ONE TABLET BY MOUTH EVERY DAY , NOTES: 699 TAKING XARELTO 20 MG TABLET TAKE ONE TABLET BY MOUTH EVERY DAY , NOTES: Wednesday TAKING PREDNISONE 1 MG TABLET TAKE THREE TABLETS BY MOUTH EVERY DAY WITH FOOD OR MILK , NOTES: 699 TAKING FLOMAX 0.4 MG CAPSULE 1 CAPSULE 30 MINUTES AFTER THE SAME MEAL EACH DAY ORALLY ONCE A DAY, NOTES: 699 TAKING LIPITOR 20 MG TABLET 1 TABLET ORALLY ONCE A DAY, NOTES: 699 TAKING FUROSEMIDE 20 MG TABLET 1 TAB ORALLY EVERY OTHER DAY, NOTES: YESTERDAY AM TAKING CYMBALTA 30 MG CAPSULE DELAYED RELEASE PARTICLES 1 CAPSULE ORALLY BID, NOTES: 699 TAKING PROSCAR 5 MG TABLET TAKE ONE TABLET BY MOUTH EVERY DAY , NOTES: 07 MEDICATION LIST REVIEWED AND RECONCILED WITH THE PATIENT PAST MEDICAL HISTORY 01/20/07 ACUTE THROMBOSIS L LESSER SAPHENOUS VEIN (SUPERFICIAL THROMBOPHLEBITIS) NO DVT DVT/PE 01/16 HYPERTENSION HYPERCHOLESTEROLEMIA PMR ON CHRONIC PREDNISONE SINCE 2007--DOESN'T TOLERATE WEAN BELOW 8 MG--NORMAL DEXA 2011 R LUNG NODULE--CTS OF CHEST IN [place] YEARLY X3; NEG- PET SCAN, W/U DONE IN [place] 1 - 39% STENOSIS R INTERNAL CAROTID A. 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 SERONEG RA-- WAS STARTED ON [place] IN [place], ALL RHEUM TESTS WERE NEG (RAIZA, RF ETC). HAS INITIAL RESPONSE SO WAS PRESUMED HE HAS INFLAMMATORY ARTHRITIS OF SOME KIND. ANEMIA 11/23, IRON STUDIES NL ALLERGIES N.K.D.A. REVIEW OF SYSTEMS CONSTITUTIONAL: ANY CHANGE IN YOUR MEDICAL CONDITION? NO . CHILLS NO . FEVER NO . INFECTION: DO YOU HAVE NEW INFECTIONS? NO . DO YOU HAVE HISTORY OF MRSA? NO . MUSCULOSKELETAL: ANY NEW PATTERNS OF PAIN OR NUMBNESS? NO . GASTROENTEROLOGY: ANY NEW CHANGE IN BOWEL CONTROL? NO . GENITOURINARY: ANY NEW CHANGE IN BLADDER CONTROL? NO . IS THERE A CHANCE YOU COULD BE ? NO . HEMATOLOGY/LYMPH: DO YOU TAKE ANY BLOOD THINNERS? (FOR EXAMPLE- COUMADIN, PLAVIX, AGGRENOX, PLATEL, PRADAXA, OR XARELTO) YES . WHEN WAS YOUR LAST DOSE? DATE:[place] 06/28/16 TIME: 2199 . NEUROLOGY: HAVE YOU FALLEN IN THE PAST 6 MONTHS? NO . ANY NEW EXTREMITY NUMBNESS OR WEAKNESS? NO . CARDIOLOGY: DO YOU HAVE A PACEMAKER OR DEFIBRILLATOR? NO . RESPIRATORY: HAVE YOU BEEN SICK IN THE PAST WEEK? NO . FEVER NO . FLU LIKE SYMPTOMS? NO . COUGH NO . INTEGUMENTARY: DO YOU HAVE ANY RASHES OR OPEN SORES? NO . ALLERGIC/IMMUNO: ARE YOU ALLERGIC TO SHELLFISH OR IV DYE? NO . ANY NEW ALLERGIES? NO . PSYCHIATRIC: DO YOU HAVE THOUGHTS OF HURTING YOURSELF OR SOMEONE ELSE? NO . ARE YOU ABUSED, NEGLECTED, OR IN AN UNSAFE ENVIRONMENT? NO . ENDOCRINOLOGY: ARE YOU DIABETIC? NO . OTHER: DO YOU NEED ANY PRESCRIPTIONS? NO . IF YES, PLEASE LIST: ____ . ANY NEW PROBLEMS WITH YOUR MEDICATIONS? NO . WHEN DID YOU LAST EAT? 5 PM . WHEN DID YOU LAST DRINK? 7 AM . WHAT DID YOU LAST DRINK? WATER . NAME OF PERSON DRIVING YOU HOME? DOUG . DO YOU HAVE ANY OTHER QUESTIONS OR CONCERNS NO . REVIEWED BY: PROVIDER: . VITAL SIGNS WT 187.0 LBS, HT 67 IN, BMI 29.29 INDEX, BP 154/69 MM HG, HR 54 /MIN, RR 18 /MIN, TEMP 98.6 F, OXYGEN SAT % 99%, NA INITIALS SC 09:03, REVIEWED BY: MARIAM. ASSESSMENTS SPONDYLOSIS WITHOUT MYELOPATHY OR RADICULOPATHY, LUMBAR REGION - M47.816 (PRIMARY) SPONDYLOSIS WITHOUT MYELOPATHY OR RADICULOPATHY, LUMBOSACRAL REGION - M47.817 PROCEDURES PN LUMBAR FACET BLOCK THERAPEUTIC PRE PROCEDURE DIAGNOSIS LUMBAR SPONDYLOSIS, LUMBOSACRAL SPONDYLOSIS POST PROCEDURE DIAGNOSIS LUMBAR SPONDYLOSIS, LUMBOSACRAL SPONDYLOSIS PROCEDURE BILATERAL L4-L5 AND L5-S1 LUMBAR FACET THERAPEUTIC BLOCK SURGEON DR. AURY RIVAS STUD BEEF CATTLE FARMER NONE ANESTHESIA LOCAL PRE PROCEDURE NOTE THE PATIENT HAS A HISTORY OF CHRONIC LOW BACK PAIN. I EVALUATE THE PATIENT AND REVIEWED THE CHART. I WENT OVER THE RISKS, ALTERNATIVES, AND BENEFITS ASSOCIATED WITH THIS PROCEDURE. THE PATIENT WOULD LIKE TO PROCEED AND GIVE CONSENT TO PERFORMED THE PROCEDURE. THE PATIENT DENIES UNEXPLAINABLE WEIGHT LOSS, FEVER, CHILLS, OR NEW CHANGES IN URINARY OR BOWEL CONTROL DESCRIPTION OF PROCEDURE THE PATIENT WAS BROUGHT TO THE PROCEDURE ROOM AND PLACED IN THE PRONE POSITION. THE LUMBOSACRAL AREA WAS CLEANED WITH CHLORAPREP SOLUTION AND DRAPED ASEPTICALLY. THE PROCEDURE WAS DONE UNDER STERILE CONDITIONS. I CHECKED LATERALITY AND THE LEVEL WHERE THE PROCEDURE WAS GOING TO BE PERFORMED WITH THE PATIENT AND THE SUPPORTING STAFF AT THE MOMENT OF THE TIME OUT IN THE PROCEDURE ROOM. UNDER FLUOROSCOPIC GUIDANCE, THE TARGET POINT WAS SELECTED AT THE RIGHT AND LEFT L4-L5 AND RIGHT AND LEFT L5-S1 FACET JOINT. TARGET POINT WAS SELECTED AFTER LATERAL ROTATION AND TILT OF THE MAGNIFIER OF THE C-ARM. LIDOCAINE 0.5% WAS USED TO NUMB THE SKIN AND THE SUBCUTANEOUS TISSUE BELOW IT. SPINAL NEEDLES, 22-GAUGE, WERE ADVANCED UNDER FLUOROSCOPIC GUIDANCE AND FOLLOWING PATIENT FEEDBACK UNTIL THE TARGETS WERE TOUCHED. THE POSITION OF THE NEEDLES WAS VERIFIED WITH AP AND LATERAL VIEWS. AFTER PROPER POSITION OF THE NEEDLES WAS ACHIEVED, ISOVUE-M DYE 30% 0.1 ML WAS INJECTED SHOWING ADEQUATE SPREAD OF THE DYE. THEN A SOLUTION OF 1.9 ML OF BUPIVACAINE 0.125% OF KENALOG 10 MG WAS INJECTED AT EACH SITE. THERE WAS NO EVIDENCE OF BLOOD, PARESTHESIA OR CEREBROSPINAL FLUID DURING THE PROCEDURE. THE PATIENT WAS SENT TO THE RECOVERY ROOM. THE PATIENT WAS MOVING THE EXTREMITIES AND DOING WELL. THERE WAS NO COMPLICATION DURING THE PROCEDURE. FLUOROSCOPY TIME WAS 23 SECONDS POST PROCEDURE NOTE THE PATIENT WILL BE SEEN IN A FOLLOW UP IN THE NEXT FEW WEEKS. INSTRUCTIONS WERE GIVEN, QUESTIONS WERE ANSWERED, AND THE PATIENT EXPRESSED UNDERSTANDING AND AGREES WITH THE PLAN. I, ISABELLE WILDER, DOCUMENTED THE ABOVE INFORMATION ACTING A SCRIBE FOR DR. RIVAS. I HAVE REVIEWED THE ABOVE DOCUMENT, WRITTEN BY ISABELLE WIDLER SCRIBE AND I VERIFY THAT IT IS ACCURATE DIAGNOSTIC IMAGING [facility] FACET BLOCK (PAIN)[id number] PROCEDURE CODES 37105 INJ PARAVERT F JNT L/S 1 LEV 46601 INJ PARAVERT F JNT L/S 2 LEV 6045F RADXPS IN END [id number] PXD DISPOSITION & COMMUNICATION FOLLOW UP 3 WEEKS ELECTRONICALLY SIGNED BY AURY RIVAS MD ON 07/12/2016 AT 05:18 PM EDT DISCLAIMER : THIS IS A VISIT SUMMARY EXTRACTED FROM THE [employer] CHART. IT IS NOT A COPY OF THE [employer] PROGRESS NOTE. MTDD
== END ==
LOC: M PAIN 09:00
PROVIDERS: ATTEND Anesthesiology
DX: G89.29 Other chronic pain (principal); M47.816 Spondylosis without myelopathy or radiculopathy, lumbar region; M47.817 Spondylosis without myelopathy or radiculopathy, lumbosacral region; E78.5 Hyperlipidemia, unspecified; M19.90 Unspecified osteoarthritis, unspecified site; E55.9 Vitamin D deficiency, unspecified; D84.9 Immunodeficiency, unspecified; I12.9 Hypertensive chronic kidney disease with stage 1 through stage 4 chronic kidney disease, or unspecified chronic kidney disease; N18.3 Chronic kidney disease, stage 3 (moderate); D63.1 Anemia in chronic kidney disease; Z79.01 Long term (current) use of anticoagulants; Z79.52 Long term (current) use of systemic steroids; Z79.899 Other long term (current) drug therapy
CPT/HCPCS: 64493; 64494; J3301; Q9967

== ENCOUNTER → 2016-07-17 | Outpatient (CLI) | payer MEDICARE, OTHER ==
[~2016-07-17] MED LIST changes: -BUPIVACAINE HCL 0.25% 30 ML VIAL As Ordered ONE; -ISOVUE-M 300 61% 15ML VIAL (Q9967) As Ordered ONE; -LIDOCAINE 1% SDV INJ 30 ML VIAL As Ordered ONE; -TRIAMCINOLONE ACETONIDE SUSP 40 MG/ML VIAL (J3301) As Ordered ONE
--- NOTE | 2016-07-18 00:21 | ECWPNPC ---
PATIENT NAME: DEMETRIS DUFF : 1935 GENDER: MALE VISIT DATE: 07/17/2016 DISCHARGE DATE: 07/17/16933 VISIT LOCKED DATE TIME: PHYSICIAN: NHI VILLASENOR PHYSICIAN PAGER NO: [phone] RESOURCE: NHI VILLASENOR REASON FOR APPOINTMENT 1. POST FACET HISTORY OF PRESENT ILLNESS HISTORY OF PRESENT ILLNESS: HERE FOR POST PROCEDURE F/U.HAD BILAT.L4/5-L5/S1 THERAPEUTIC LUMBAR FACET BLOCK ON 07-03-16.HAS HAD >75%IMPROVEMENT IN PAIN POST PROCEDURE .RATING PAIN VAS 3/10.C/O BILATERAL LEG PAIN.HAS NO PAIN AT REST.DISCUSSED SYMPTOMS OF SPINAL STENOSIS.DISCUSSED LESI BUT PATIENT WOULD LIKE TO HOLD OFF ON ANY PROCEDURE RIGHT NOW. PAIN THE PATIENT DESCRIBES THE PAIN... FALL RISK SCREENING: SCREENING :NO FALLS IN THE PAST YEAR CURRENT MEDICATIONS TAKING VITAMIN B12 1000 MCG TABLET 1 TABLET ORALLY ONCE A DAY TAKING TYLENOL ARTHRITIS PAIN 650 MG TABLET EXTENDED RELEASE 2 TABLETS ORALLY THREE TIMES A DAY NEEDED TAKING MUPIROCIN 2 % OINTMENT 1 APPLICATION TO AFFECTED AREA EXTERNALLY BID PRN TAKING SOMA 350 MG TABLET 1 ORALLY AT BEDTIME IF NEEDED FOR PAIN TAKING PREDNISONE 5 MG TABLET 1 TABLET WITH FOOD OR MILK ORALLY ONCE A DAY TAKING BENAZEPRIL HCL 20 MG TABLET TAKE ONE TABLET BY MOUTH EVERY DAY TAKING XARELTO 20 MG TABLET TAKE ONE TABLET BY MOUTH EVERY DAY TAKING PREDNISONE 1 MG TABLET TAKE THREE TABLETS BY MOUTH EVERY DAY WITH FOOD OR MILK TAKING FLOMAX 0.4 MG CAPSULE 1 CAPSULE 30 MINUTES AFTER THE SAME MEAL EACH DAY ORALLY ONCE A DAY TAKING LIPITOR 20 MG TABLET 1 TABLET ORALLY ONCE A DAY TAKING FUROSEMIDE 20 MG TABLET 1 TAB ORALLY EVERY OTHER DAY TAKING CYMBALTA 30 MG CAPSULE DELAYED RELEASE PARTICLES 1 CAPSULE ORALLY BID TAKING PROSCAR 5 MG TABLET TAKE ONE TABLET BY MOUTH EVERY DAY MEDICATION LIST REVIEWED AND RECONCILED WITH THE PATIENT PAST MEDICAL HISTORY 01/20/07 ACUTE THROMBOSIS L LESSER SAPHENOUS VEIN (SUPERFICIAL THROMBOPHLEBITIS) NO DVT DVT/PE 01/16 HYPERTENSION HYPERCHOLESTEROLEMIA PMR ON CHRONIC PREDNISONE SINCE 2007--DOESN'T TOLERATE WEAN BELOW 8 MG--NORMAL DEXA 2011 R LUNG NODULE--CTS OF CHEST IN [place] YEARLY X3; NEG- PET SCAN, W/U DONE IN [place] 1 - 39% STENOSIS R INTERNAL CAROTID A. 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 SERONEG RA-- WAS STARTED ON ARAVA IN [place], ALL RHEUM TESTS WERE NEG (RAIZA, RF ETC). HAS INITIAL RESPONSE SO WAS PRESUMED HE HAS INFLAMMATORY ARTHRITIS OF SOME KIND. ANEMIA 11/23, IRON STUDIES NL ALLERGIES N.K.D.A. REVIEW OF SYSTEMS CONSTITUTIONAL: ANY CHANGE IN YOUR MEDICAL CONDITION? NO . CHILLS NO . FEVER NO . INFECTION: DO YOU HAVE NEW INFECTIONS? NO . DO YOU HAVE HISTORY OF MRSA? NO . MUSCULOSKELETAL: ANY NEW PATTERNS OF PAIN OR NUMBNESS? NO . GASTROENTEROLOGY: ANY NEW CHANGE IN BOWEL CONTROL? NO . GENITOURINARY: ANY NEW CHANGE IN BLADDER CONTROL? NO . IS THERE A CHANCE YOU COULD BE ? NO . HEMATOLOGY/LYMPH: DO YOU TAKE ANY BLOOD THINNERS? (FOR EXAMPLE- COUMADIN, PLAVIX, AGGRENOX, PLATEL, PRADAXA, OR XARELTO) YES, XARELTO . WHEN WAS YOUR LAST DOSE? DATE: TIME: 07/16/16 2200 . NEUROLOGY: HAVE YOU FALLEN IN THE PAST 6 MONTHS? NO . ANY NEW EXTREMITY NUMBNESS OR WEAKNESS? NO . CARDIOLOGY: DO YOU HAVE A PACEMAKER OR DEFIBRILLATOR? NO . RESPIRATORY: HAVE YOU BEEN SICK IN THE PAST WEEK? NO . FEVER NO . FLU LIKE SYMPTOMS? NO . COUGH NO . INTEGUMENTARY: DO YOU HAVE ANY RASHES OR OPEN SORES? NO . ALLERGIC/IMMUNO: ARE YOU ALLERGIC TO SHELLFISH OR IV DYE? NO . ANY NEW ALLERGIES? NO . PSYCHIATRIC: DO YOU HAVE THOUGHTS OF HURTING YOURSELF OR SOMEONE ELSE? NO . ARE YOU ABUSED, NEGLECTED, OR IN AN UNSAFE ENVIRONMENT? NO . ENDOCRINOLOGY: ARE YOU DIABETIC? NO . OTHER: DO YOU NEED ANY PRESCRIPTIONS? NO . IF YES, PLEASE LIST: ____ . ANY NEW PROBLEMS WITH YOUR MEDICATIONS? NO . WHEN DID YOU LAST EAT? ____ . WHEN DID YOU LAST DRINK? ____ . WHAT DID YOU LAST DRINK? ____ . NAME OF PERSON DRIVING YOU HOME? ____ . DO YOU HAVE ANY OTHER QUESTIONS OR CONCERNS NO . REVIEWED BY: PROVIDER: NHI THOMAS . VITAL SIGNS WT 180.0 LBS, HT 67 IN, BMI 28.19 INDEX, BP 147/76 MM HG, HR 67 /MIN, RR 16 /MIN, TEMP 97.6 F, OXYGEN SAT % 99%, NA INITIALS TL 0847, REVIEWED BY: AD. EXAMINATION GENERAL EXAMINATION: LUNGS:LUNG SOUNDS ARE CLEAR. HEART:HEART RATE REGULAR. MUSCULOSKELETAL:*, MUSCLE STRENGTH TESTING 5/5 BILATERAL LOWER EXTREMITIES. PALPATION: MILD PAIN OVER L/S SPINE. MILD PAIN OVER L/S PARASPINALS. 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 THEY WERE ADVISED THAT THIS WILL IMPROVE WEIGHT LOSS AND ALSO DEPRESSION/FIBROMYALGIA SYMPTOMS. ADVISED TO WALK 10 MINUTES EVERY OTHER DAY ON A FLAT SURFACE. EMPHASIZED THE IMPORTANCE OF DOING THIS CONSISTANTLY AND NOT SPORATICALLY TO AVOID INJURY. STRONG ADVISED NOT TO DO MORE THAN 10 MINUTES EVERY OTHER DSY FOR THE FIRST 4 WEEKS. PROCEDURE CODES FA211 ESTABILISHED PATIENT [facility] CHARGE G8730 PAIN ASSESS POS TOOL F/U PLAN DOC G8427 DOC MEDS VERIFIED W/PT OR RE DISPOSITION & COMMUNICATION FOLLOW UP 3 MONTHS ELECTRONICALLY SIGNED BY WILLIAM ERICKSON ON 07/17/2016 AT 04:20 PM EDT DISCLAIMER : THIS IS A VISIT SUMMARY EXTRACTED FROM THE [employer] CHART. IT IS NOT A COPY OF THE [employer] PROGRESS NOTE. MTDD
== END ==
LOC: M PAIN 09:00
PROVIDERS: ATTEND Nurse Practitioner Family
DX: G89.29 Other chronic pain (principal); M47.816 Spondylosis without myelopathy or radiculopathy, lumbar region; M48.06 Spinal stenosis, lumbar region; M19.90 Unspecified osteoarthritis, unspecified site; I11.9 Hypertensive heart disease without heart failure; N18.3 Chronic kidney disease, stage 3 (moderate); D63.1 Anemia in chronic kidney disease; E78.5 Hyperlipidemia, unspecified; M35.3 Polymyalgia rheumatica; E55.9 Vitamin D deficiency, unspecified; I82.509 Chronic embolism and thrombosis of unspecified deep veins of unspecified lower extremity; M06.00 Rheumatoid arthritis without rheumatoid factor, unspecified site; Z79.01 Long term (current) use of anticoagulants; Z79.52 Long term (current) use of systemic steroids; Z79.899 Other long term (current) drug therapy

== ENCOUNTER → 2016-11-03 | Outpatient (CLI) | payer MEDICARE, OTHER ==
[~2016-11-03] MED LIST changes: -BENA20TA2 PO; +BENA20TA8 PO
--- NOTE | 2016-11-28 01:08 | ECWPNPC ---
PATIENT NAME: DEMETRIS DUFF : 1935 GENDER: MALE VISIT DATE: 11/03/2016 DISCHARGE DATE: 11/03/16 1012 VISIT LOCKED DATE TIME: PHYSICIAN: NHI VILLASENOR PHYSICIAN PAGER NO: [phone] RESOURCE: NHI VILLASENOR REASON FOR APPOINTMENT 1. 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 PAIN THE PATIENT DESCRIBES THE PAIN... FALL RISK SCREENING: SCREENING :NO FALLS IN THE PAST YEAR CURRENT MEDICATIONS TAKING VITAMIN B12 1000 MCG TABLET 1 TABLET ORALLY ONCE A DAY TAKING TYLENOL ARTHRITIS PAIN 650 MG TABLET EXTENDED RELEASE 2 TABLETS ORALLY THREE TIMES A DAY NEEDED TAKING SOMA 350 MG TABLET 1 ORALLY AT BEDTIME IF NEEDED FOR PAIN TAKING BENAZEPRIL HCL 20 MG TABLET TAKE ONE TABLET BY MOUTH EVERY DAY TAKING XARELTO 20 MG TABLET TAKE ONE TABLET BY MOUTH EVERY DAY TAKING PREDNISONE 5 MG TABLET 1 TABLET WITH FOOD OR MILK ORALLY ONCE A DAY TAKING PREDNISONE 1 MG TABLET 2 TABS TAKING FLOMAX 0.4 MG CAPSULE 1 CAPSULE 30 MINUTES AFTER THE SAME MEAL EACH DAY ORALLY ONCE A DAY TAKING LIPITOR 20 MG TABLET 1 TABLET ORALLY ONCE A DAY TAKING PROSCAR 5 MG TABLET TAKE ONE TABLET BY MOUTH EVERY DAY TAKING MUPIROCIN 2 % OINTMENT 1 APPLICATION TO AFFECTED AREA EXTERNALLY BID PRN TAKING CYMBALTA 30 MG CAPSULE DELAYED RELEASE PARTICLES 1 CAPSULE ORALLY BID 3MOS SUPPLY TAKING FUROSEMIDE 20 MG TABLET 1 TAB ORALLY DAILY NEEDED MEDICATION LIST REVIEWED AND RECONCILED WITH THE PATIENT PAST MEDICAL HISTORY 01/20/07 ACUTE THROMBOSIS L LESSER SAPHENOUS VEIN (SUPERFICIAL THROMBOPHLEBITIS) NO DVT DVT/PE 01/16 HYPERTENSION HYPERCHOLESTEROLEMIA PMR ON CHRONIC PREDNISONE SINCE 2007--DOESN'T TOLERATE WEAN BELOW 8 MG--NORMAL DEXA 2011 R LUNG NODULE--CTS OF CHEST IN [place] YEARLY X3; NEG- PET SCAN, W/U DONE IN [place] 1 - 39% STENOSIS R INTERNAL CAROTID A. 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 SERONEG RA-- WAS STARTED ON [place] IN [place], ALL RHEUM TESTS WERE NEG (RAIZA, RF ETC). HAS INITIAL RESPONSE SO WAS PRESUMED HE HAS INFLAMMATORY ARTHRITIS OF SOME KIND. ANEMIA 11/23, IRON STUDIES NL ALLERGIES N.K.D.A. SOCIAL HISTORY GENERAL: TOBACCO USE ARE YOU A:NONSMOKER ALCOHOL SCREENING DID YOU HAVE A DRINK CONTAINING ALCOHOL IN THE PAST YEAR?YES HOW OFTEN DID YOU HAVE A DRINK CONTAINING ALCOHOL IN THE PAST YEAR?TWO TO THREE TIMES PER WEEK (3 POINTS) HOW MANY DRINKS DID YOU HAVE ON A TYPICAL DAY WHEN YOU WERE DRINKING IN THE PAST YEAR?1 OR 2 (0 POINTS) HOW OFTEN DID YOU HAVE SIX OR MORE DRINKS ON ONE OCCASION IN THE PAST YEAR?NEVER (0 POINTS) POINTS3 INTERPRETATIONNEGATIVE RECREATIONAL DRUG USE DRUG USE?NO CAFFEINE CAFFEINE USE?YES 1 CUP A DAY LEARNING BARRIERS / SPECIAL NEEDS CHANGE FROM LAST VISIT?NO BARRIERS TO LEARNING?NO HEARING IMPAIRED?YES :HEARING AIDES VISION IMPAIRED?NO COGNITIVELY IMPAIRED?NO READINESS TO LEARN?YES LEARNING PREFERENCES?NO LEARNING CAPABILITIES PRESENT?YES EMOTIONAL BARRIERS?NO SPECIAL DEVICES?NO BRANCH CREDIT COUNSELOR NEEDED?NO PAIN CLINIC PFS, CLERGY, PUBLIC HEALTH REFERRALS PFS REFERRAL NEEDED?NO CLERGY REFERRAL NEEDED?NO PUBLIC HEALTH REFERRAL NEEDED?NO WAS THE PROVIDER NOTIFIED OF ANY PERTINENT INFO?NO HAS THE PATIENT BEEN EDUCATED REGARDING HIS/HER PLAN OF CARE?YES HAS THE PATIENT BEEN EDUCATED REGARDING PAIN, THE RISK FOR PAIN, THE IMPORTANCE OF EFFECTIVE PAIN MANAGEMENT, AND THE PAIN ASSESSMENT PROCESS?YES PATIENT: ____. REVIEW OF SYSTEMS REVIEWED BY: PROVIDER: NHI THOMAS . CONSTITUTIONAL: ANY CHANGE IN YOUR MEDICAL CONDITION? PAIN IS AFFECTING HIS WALKING ABILITY . CHILLS NO . FEVER NO . INFECTION: DO YOU HAVE NEW INFECTIONS? NO . DO YOU HAVE HISTORY OF MRSA? NO . MUSCULOSKELETAL: ANY NEW PATTERNS OF PAIN OR NUMBNESS? NO . GASTROENTEROLOGY: ANY NEW CHANGE IN BOWEL CONTROL? NO . GENITOURINARY: ANY NEW CHANGE IN BLADDER CONTROL? NO . IS THERE A CHANCE YOU COULD BE ? NO . HEMATOLOGY/LYMPH: DO YOU TAKE ANY BLOOD THINNERS? (FOR EXAMPLE- COUMADIN, PLAVIX, AGGRENOX, PLATEL, PRADAXA, OR XARELTO) YES . WHEN WAS YOUR LAST DOSE? DATE: TIME: . NEUROLOGY: HAVE YOU FALLEN IN THE PAST 6 MONTHS? NO . ANY NEW EXTREMITY NUMBNESS OR WEAKNESS? NO . CARDIOLOGY: DO YOU HAVE A PACEMAKER OR DEFIBRILLATOR? NO . RESPIRATORY: HAVE YOU BEEN SICK IN THE PAST WEEK? NO . FEVER NO . FLU LIKE SYMPTOMS? NO . COUGH NO . INTEGUMENTARY: DO YOU HAVE ANY RASHES OR OPEN SORES? NO . ALLERGIC/IMMUNO: ARE YOU ALLERGIC TO SHELLFISH OR IV DYE? NO . ANY NEW ALLERGIES? NO . PSYCHIATRIC: DO YOU HAVE THOUGHTS OF HURTING YOURSELF OR SOMEONE ELSE? NO . ARE YOU ABUSED, NEGLECTED, OR IN AN UNSAFE ENVIRONMENT? NO . ENDOCRINOLOGY: ARE YOU DIABETIC? NO . OTHER: DO YOU NEED ANY PRESCRIPTIONS? NO . IF YES, PLEASE LIST: ____ . ANY NEW PROBLEMS WITH YOUR MEDICATIONS? NO . WHEN DID YOU LAST EAT? ____ . WHEN DID YOU LAST DRINK? ____ . WHAT DID YOU LAST DRINK? ____ . NAME OF PERSON DRIVING YOU HOME? ____ . DO YOU HAVE ANY OTHER QUESTIONS OR CONCERNS NO . VITAL SIGNS WT 180 LBS, HT 67 IN, BMI 28.19 INDEX, BP 138/67 MM HG, HR 68 /MIN, RR 18 /MIN, TEMP 98.2 F, OXYGEN SAT % 98%, NA INITIALS SC 09:28, REVIEWED BY: NL. EXAMINATION GENERAL EXAMINATION: LUNGS:LUNG SOUNDS ARE CLEAR. HEART:HEART RATE REGULAR. MUSCULOSKELETAL:*, MUSCLE STRENGTH TESTING 5/5 BILATERAL LOWER EXTREMITIES. PALPATION: MILD PAIN OVER L/S SPINE. MILD PAIN OVER L/S PARASPINALS.SPECIFIC POINT TENDERNESS OVER L4/5-L5/S1 LUMBAR FACETS WITH FACET LOADING. 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 PREVENTIVE MEDICINE DISCUSSED PRE PROCEDURE CARE WITH UNDERSTANDING EXPRESSED. PROCEDURE CODES FA211 ESTABILISHED PATIENT [facility] FACILITY CHARGE [id number] PAIN ASSESS POS TOOL F/U PLAN DOC G8475 DOC MEDS VERIFIED W/PT OR RE DISPOSITION & COMMUNICATION FOLLOW UP 2WK POST (REASON: BILAT.L4/5-L5/S1 THERAPEUTIC FACET BLOCK) ELECTRONICALLY SIGNED BY WILLIAM ERICKSON ON 11/27/2016 AT 05:38 PM EDT DISCLAIMER : THIS IS A VISIT SUMMARY EXTRACTED FROM THE [employer] CHART. IT IS NOT A COPY OF THE [employer] PROGRESS NOTE. MTDD
== END ==
LOC: M PAIN 09:30
PROVIDERS: ATTEND Nurse Practitioner Family
DX: G89.29 Other chronic pain (principal); M47.816 Spondylosis without myelopathy or radiculopathy, lumbar region; M48.06 Spinal stenosis, lumbar region; M15.0 Primary generalized (osteo)arthritis; I11.9 Hypertensive heart disease without heart failure; N18.3 Chronic kidney disease, stage 3 (moderate); D63.1 Anemia in chronic kidney disease; E78.5 Hyperlipidemia, unspecified; E55.9 Vitamin D deficiency, unspecified; Z79.52 Long term (current) use of systemic steroids; Z79.01 Long term (current) use of anticoagulants; Z79.899 Other long term (current) drug therapy

== ENCOUNTER → 2016-11-18 | Outpatient (CLI) | payer MEDICARE, OTHER ==
[~2016-11-18] MED LIST changes: +BUPIVACAINE HCL 0.25% 30 ML VIAL As Ordered ONE; +ISOVUE-M 300 61% 15ML VIAL (Q9967) As Ordered ONE; +LIDOCAINE 1% SDV INJ 30 ML VIAL As Ordered ONE; +TRIAMCINOLONE ACETONIDE SUSP 40 MG/ML VIAL (J3301) As Ordered ONE
--- NOTE | 2016-11-18 11:05 | REP ---
Partial lumbar spine series: Two views . History: Injection procedure for pain. 25 seconds of fluoroscopy time is reported. Findings: A sequence of two fluoroscopically obtained last image hold procedural spot radiographs of the lumbar spine document needle position and contrast injection associated with injection procedure. Signed by Romie Herrera MD 11/18/2016 10:57 A
--- NOTE | 2016-11-24 01:33 | ECWPNPC ---
PATIENT NAME: DEMETRIS DUFF : 1935 GENDER: MALE VISIT DATE: 11/18/2016 DISCHARGE DATE: 11/18/16958 VISIT LOCKED DATE TIME: PHYSICIAN: AURY RIVAS PHYSICIAN PAGER NO: [phone] RESOURCE: AURY RIVAS REASON FOR APPOINTMENT 1. BILAT.L4/5-L5/S1 THERA FACET HISTORY OF PRESENT ILLNESS HISTORY OF PRESENT ILLNESS: PAIN THE PATIENT DESCRIBES THE PAIN... FALL RISK SCREENING: SCREENING :NO FALLS IN THE PAST YEAR CURRENT MEDICATIONS TAKING VITAMIN B12 1000 MCG TABLET 1 TABLET ORALLY ONCE A DAY, NOTES: 11/17/16799 TAKING TYLENOL ARTHRITIS PAIN 650 MG TABLET EXTENDED RELEASE 2 TABLETS ORALLY THREE TIMES A DAY NEEDED, NOTES: 11/17/162199 TAKING SOMA 350 MG TABLET 1 ORALLY AT BEDTIME IF NEEDED FOR PAIN, NOTES: > 1 MONTH TAKING BENAZEPRIL HCL 20 MG TABLET TAKE ONE TABLET BY MOUTH EVERY DAY , NOTES: 11/18/16599 TAKING XARELTO 20 MG TABLET TAKE ONE TABLET BY MOUTH EVERY DAY , NOTES: 11/13/162199 TAKING PREDNISONE 5 MG TABLET 1 TABLET WITH FOOD OR MILK ORALLY ONCE A DAY, NOTES: 11/18/16599 TAKING PREDNISONE 1 MG TABLET 2 TABS , NOTES: 11/18/16599 TAKING FLOMAX 0.4 MG CAPSULE 1 CAPSULE 30 MINUTES AFTER THE SAME MEAL EACH DAY ORALLY ONCE A DAY, NOTES: 11/18/16599 TAKING LIPITOR 20 MG TABLET 1 TABLET ORALLY ONCE A DAY, NOTES: 11/18/16599 TAKING PROSCAR 5 MG TABLET TAKE ONE TABLET BY MOUTH EVERY DAY , NOTES: 11/18/16599 TAKING MUPIROCIN 2 % OINTMENT 1 APPLICATION TO AFFECTED AREA EXTERNALLY BID PRN, NOTES: > 1 WEEK TAKING CYMBALTA 30 MG CAPSULE DELAYED RELEASE PARTICLES 1 CAPSULE ORALLY BID 3MOS SUPPLY, NOTES: 11/18/16599 TAKING FUROSEMIDE 20 MG TABLET 1 TAB ORALLY DAILY NEEDED, NOTES: 11/16/16799 MEDICATION LIST REVIEWED AND RECONCILED WITH THE PATIENT PAST MEDICAL HISTORY 01/20/07 ACUTE THROMBOSIS L LESSER SAPHENOUS VEIN (SUPERFICIAL THROMBOPHLEBITIS) NO DVT DVT/PE 01/16 HYPERTENSION HYPERCHOLESTEROLEMIA PMR ON CHRONIC PREDNISONE SINCE 2007--DOESN'T TOLERATE WEAN BELOW 8 MG--NORMAL DEXA 2011 R LUNG NODULE--CTS OF CHEST IN [place] YEARLY X3; NEG- PET SCAN, W/U DONE IN [place] 1 - 39% STENOSIS R INTERNAL CAROTID A. 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 SERONEG RA-- WAS STARTED ON ARAVA IN [place], ALL RHEUM TESTS WERE NEG (RAIZA, RF ETC). HAS INITIAL RESPONSE SO WAS PRESUMED HE HAS INFLAMMATORY ARTHRITIS OF SOME KIND. ANEMIA 11/23, IRON STUDIES NL ALLERGIES N.K.D.A. REVIEW OF SYSTEMS REVIEWED BY: PROVIDER: . CONSTITUTIONAL: ANY CHANGE IN YOUR MEDICAL CONDITION? YES PT REPORTS HE HAD HIS FLU SHOT ABOUT [address] RIVAS NOTIFIED, IN TO SPEAK WITH PT, OK TO PROCEED. . CHILLS NO . FEVER NO . INFECTION: DO YOU HAVE NEW INFECTIONS? NO . DO YOU HAVE HISTORY OF MRSA? NO . MUSCULOSKELETAL: ANY NEW PATTERNS OF PAIN OR NUMBNESS? YES PT REPORTS INCREASE IN DIFFICULTY WALKING DUE TO DISCOMFORT, HAS BEEN GOING ON FOR ABOUT 3 WEEKS. . GASTROENTEROLOGY: ANY NEW CHANGE IN BOWEL CONTROL? NO . GENITOURINARY: ANY NEW CHANGE IN BLADDER CONTROL? NO . IS THERE A CHANCE YOU COULD BE ? NO . HEMATOLOGY/LYMPH: DO YOU TAKE ANY BLOOD THINNERS? (FOR EXAMPLE- COUMADIN, PLAVIX, AGGRENOX, PLATEL, PRADAXA, OR XARELTO) YES . WHEN WAS YOUR LAST DOSE? DATE: TIME: XARELTO 11/13/16@2199 <11/13/16@2199> . NEUROLOGY: HAVE YOU FALLEN IN THE PAST 6 MONTHS? NO . ANY NEW EXTREMITY NUMBNESS OR WEAKNESS? NO . CARDIOLOGY: DO YOU HAVE A PACEMAKER OR DEFIBRILLATOR? NO . RESPIRATORY: HAVE YOU BEEN SICK IN THE PAST WEEK? NO . FEVER NO . FLU LIKE SYMPTOMS? NO . COUGH NO . INTEGUMENTARY: DO YOU HAVE ANY RASHES OR OPEN SORES? NO . ALLERGIC/IMMUNO: ARE YOU ALLERGIC TO SHELLFISH OR IV DYE? NO . ANY NEW ALLERGIES? NO . PSYCHIATRIC: DO YOU HAVE THOUGHTS OF HURTING YOURSELF OR SOMEONE ELSE? NO . ARE YOU ABUSED, NEGLECTED, OR IN AN UNSAFE ENVIRONMENT? NO . ENDOCRINOLOGY: ARE YOU DIABETIC? NO . OTHER: DO YOU NEED ANY PRESCRIPTIONS? YES . IF YES, PLEASE LIST: ____CYMBALTA . ANY NEW PROBLEMS WITH YOUR MEDICATIONS? NO . WHEN DID YOU LAST EAT? ____ . WHEN DID YOU LAST DRINK? ____ . WHAT DID YOU LAST DRINK? ____ . NAME OF PERSON DRIVING YOU HOME? ____ . DO YOU HAVE ANY OTHER QUESTIONS OR CONCERNS NO . VITAL SIGNS WT 180 LBS, HT 67 IN, BMI 28.19 INDEX, BP 145/65 MM HG, HR 54 /MIN, RR 16 /MIN, TEMP 97.8 F, OXYGEN SAT % 98%, SAFE IN ENV? (Y/N) YES, NA INITIALS NC 08:51, REVIEWED BY: YESSI. ASSESSMENTS SPONDYLOSIS OF LUMBAR REGION WITHOUT MYELOPATHY OR RADICULOPATHY - M47.816 (PRIMARY) SPONDYLOSIS OF LUMBOSACRAL REGION WITHOUT MYELOPATHY OR RADICULOPATHY - M47.817 PROCEDURES PN LUMBAR FACET BLOCK THERAPEUTIC PRE PROCEDURE DIAGNOSIS LUMBAR SPONDYLOSIS, LUMBOSACRAL SPONDYLOSIS POST PROCEDURE DIAGNOSIS LUMBAR SPONDYLOSIS, LUMBOSACRAL SPONDYLOSIS PROCEDURE BILATERAL L4-L5 AND BILATERAL L5-S1 LUMBAR FACET THERAPEUTIC BLOCK SURGEON DR. AURY RIVAS HARNESS INSPECTOR NONE ANESTHESIA LOCAL PRE PROCEDURE NOTE THE PATIENT HAS A HISTORY OF CHRONIC LOW BACK PAIN. I EVALUATE THE PATIENT AND REVIEWED THE CHART. I WENT OVER THE RISKS, ALTERNATIVES, AND BENEFITS ASSOCIATED WITH THIS PROCEDURE. THE PATIENT WOULD LIKE TO PROCEED AND GIVE CONSENT TO PERFORMED THE PROCEDURE. THE PATIENT DENIES UNEXPLAINABLE WEIGHT LOSS, FEVER, CHILLS, OR NEW CHANGES IN URINARY OR BOWEL CONTROL DESCRIPTION OF PROCEDURE THE PATIENT WAS BROUGHT TO THE PROCEDURE ROOM AND PLACED IN THE PRONE POSITION. THE LUMBOSACRAL AREA WAS CLEANED WITH CHLORAPREP SOLUTION AND DRAPED ASEPTICALLY. THE PROCEDURE WAS DONE UNDER STERILE CONDITIONS. I CHECKED LATERALITY AND THE LEVEL WHERE THE PROCEDURE WAS GOING TO BE PERFORMED WITH THE PATIENT AND THE SUPPORTING STAFF AT THE MOMENT OF THE TIME OUT IN THE PROCEDURE ROOM. UNDER FLUOROSCOPIC GUIDANCE, THE TARGET POINT WAS SELECTED AT THE RIGHT AND LEFT L4-L5 AND RIGHT AND LEFT L5-S1 FACET JOINT. TARGET POINT WAS SELECTED AFTER LATERAL ROTATION AND TILT OF THE MAGNIFIER OF THE C-ARM. LIDOCAINE 0.5% WAS USED TO NUMB THE SKIN AND THE SUBCUTANEOUS TISSUE BELOW IT. SPINAL NEEDLES, 22-GAUGE, WERE ADVANCED UNDER FLUOROSCOPIC GUIDANCE AND FOLLOWING PATIENT FEEDBACK UNTIL THE TARGETS WERE TOUCHED. THE POSITION OF THE NEEDLES WAS VERIFIED WITH AP AND LATERAL VIEWS. AFTER PROPER POSITION OF THE NEEDLES WAS ACHIEVED, ISOVUE-M DYE 30% 0.1 ML WAS INJECTED SHOWING ADEQUATE SPREAD OF THE DYE. THEN A SOLUTION OF 1.9 ML OF BUPIVACAINE 0.125% OF KENALOG 10 MG WAS INJECTED AT EACH SITE. THERE WAS NO EVIDENCE OF BLOOD, PARESTHESIA OR CEREBROSPINAL FLUID DURING THE PROCEDURE. THE PATIENT WAS SENT TO THE RECOVERY ROOM. THE PATIENT WAS MOVING THE EXTREMITIES AND DOING WELL. THERE WAS NO COMPLICATION DURING THE PROCEDURE. FLUOROSCOPY TIME WAS 25 SECONDS POST PROCEDURE NOTE THE PATIENT WILL BE SEEN IN A FOLLOW UP IN THE NEXT FEW WEEKS. INSTRUCTIONS WERE GIVEN, QUESTIONS WERE ANSWERED, AND THE PATIENT EXPRESSED UNDERSTANDING AND AGREES WITH THE PLAN. I, SHARLENE VELOZ, DOCUMENTED THE ABOVE INFORMATION ACTING A SCRIBE FOR DR. RIVAS. I, DR. RIVAS, HAVE REVIEWED THE ABOVE DOCUMENT, SCRIBED BY SHARLENE VELOZ AND I VERIFY THAT IS ACCURATE. DIAGNOSTIC IMAGING [facility] FACET BLOCK (PAIN)[id number] PROCEDURE CODES 11334 INJ PARAVERT F JNT L/S 1 LEV, MODIFIERS: 50 [id number] INJ PARAVERT F JNT L/S 2 LEV, MODIFIERS: 50 [id number] RADXPS IN END [id number] PXD DISPOSITION & COMMUNICATION FOLLOW UP 3 WEEKS ELECTRONICALLY SIGNED BY AURY RIVAS MD ON 11/23/2016 AT 02:48 AM EDT DISCLAIMER : THIS IS A VISIT SUMMARY EXTRACTED FROM THE [employer] CHART. IT IS NOT A COPY OF THE [employer] PROGRESS NOTE. MTDD
== END ==
LOC: M PAIN 08:45
PROVIDERS: ATTEND Anesthesiology
DX: G89.29 Other chronic pain (principal); M47.816 Spondylosis without myelopathy or radiculopathy, lumbar region; M47.817 Spondylosis without myelopathy or radiculopathy, lumbosacral region; I11.9 Hypertensive heart disease without heart failure; N18.3 Chronic kidney disease, stage 3 (moderate); D63.1 Anemia in chronic kidney disease; E78.5 Hyperlipidemia, unspecified; M15.0 Primary generalized (osteo)arthritis; M35.3 Polymyalgia rheumatica; E55.9 Vitamin D deficiency, unspecified; Z79.52 Long term (current) use of systemic steroids; Z79.899 Other long term (current) drug therapy
CPT/HCPCS: 64493; 64494; J3301; Q9967

== ENCOUNTER → 2017-06-02 | Outpatient (REF) | payer MEDICARE, OTHER ==
[2017-06-02 11:40] LABS: HEMATOCRIT 39.3 % (42.0-52.0); HEMOGLOBIN 12.4 g/dl (13.5-17.5); MEAN CORPUSCULAR HEMOGLOBIN 31.2 pg (27.0-33.0); MEAN CORPUSCULAR HGB CONC 31.6 g/dl (32.0-36.5); MEAN CORPUSCULAR VOLUME 98.7 fl (80.0-96.0); PLATELET COUNT, AUTOMATED 235 10^3/uL (150-450); RED BLOOD COUNT 3.98 10^6/uL (4.30-6.10); RED CELL DISTRIBUTION WIDTH 13.6 % (11.5-14.5); WHITE BLOOD COUNT 7.9 10^3/uL (4.0-10.0)
[2017-06-02 12:01] LABS: ANION GAP 6 MEQ/L (8-16); BLOOD UREA NITROGEN 23 MG/DL (7-18); CALCIUM LEVEL 8.5 MG/DL (8.8-10.2); CARBON DIOXIDE LEVEL 29 MEQ/L (21-32); CHLORIDE LEVEL 112 MEQ/L (98-107); CREATININE FOR GFR 1.55 MG/DL (0.70-1.30); GLOMERULAR FILTRATION RATE 46.2 (>35); GLUCOSE, FASTING 89 MG/DL (70-100); POTASSIUM SERUM 4.2 MEQ/L (3.5-5.1); SODIUM LEVEL 147 MEQ/L (136-145)
== END ==
LOC: M SFHCCLAY 07:04
DX: N18.3 Chronic kidney disease, stage 3 (moderate) (principal)
CPT/HCPCS: 80048

== ENCOUNTER → 2017-06-24 | Outpatient (CLI) | payer MEDICARE, OTHER | LOC: M RAD 11:14 | DX: H93.A1 Pulsatile tinnitus, right ear (principal) | CPT/HCPCS: 93880 ==

== ENCOUNTER → 2018-06-21 | Outpatient (REF) | payer MEDICARE, OTHER ==
[~2018-06-21] MED LIST changes: -BUPIVACAINE HCL 0.25% 30 ML VIAL As Ordered ONE; +FLOM0.4C39 PO; -FLOM5CAP PO; -ISOVUE-M 300 61% 15ML VIAL (Q9967) As Ordered ONE; -LIDOCAINE 1% SDV INJ 30 ML VIAL As Ordered ONE; -TRIAMCINOLONE ACETONIDE SUSP 40 MG/ML VIAL (J3301) As Ordered ONE
[2018-06-21 12:37] LABS: HEMATOCRIT 41.7 % (42.0-52.0); HEMOGLOBIN 13.1 g/dl (13.5-17.5); MEAN CORPUSCULAR HEMOGLOBIN 29.7 pg (27.0-33.0); MEAN CORPUSCULAR HGB CONC 31.4 g/dl (32.0-36.5); MEAN CORPUSCULAR VOLUME 94.6 fl (80.0-96.0); PLATELET COUNT, AUTOMATED 246 10^3/uL (150-450); RED BLOOD COUNT 4.41 10^6/uL (4.30-6.10); WHITE BLOOD COUNT 12.1 10^3/uL (4.0-10.0)
[2018-06-21 13:09] LABS: ALBUMIN 3.3 GM/DL (3.2-5.2); BILIRUBIN,TOTAL 0.7 MG/DL (0.2-1.0); CALCIUM LEVEL 8.6 MG/DL (8.8-10.2); CHOLESTEROL RISK RATIO 2.309 (<5); CREATININE FOR GFR 1.31 MG/DL (0.70-1.30); GLOMERULAR FILTRATION RATE 55.9 (>35); POTASSIUM SERUM 4.7 MEQ/L (3.5-5.1)
[2018-06-21 13:13] LABS: ERYTHROCYTE SEDIMENTATION RATE 5 mm/hr (0-20)
== END ==
LOC: M SFHCADAM 10:09
PROVIDERS: ATTEND Family Medicine
DX: N18.3 Chronic kidney disease, stage 3 (moderate) (principal); D63.1 Anemia in chronic kidney disease; M35.3 Polymyalgia rheumatica; E78.5 Hyperlipidemia, unspecified
CPT/HCPCS: 80053; 80061; 85027; 85652; G0463

== ENCOUNTER → 2019-06-09 | Outpatient (REF) | payer MEDICARE, OTHER ==
[~2019-06-09] MED LIST changes: +CYAN100049 PO; -VITA10002 PO
[2019-06-09 11:36] LABS: HEMATOCRIT 40.9 % (42.0-52.0); HEMOGLOBIN 12.9 g/dl (13.5-17.5); MEAN CORPUSCULAR HEMOGLOBIN 31.2 pg (27.0-33.0); MEAN CORPUSCULAR HGB CONC 31.5 g/dl (32.0-36.5); MEAN CORPUSCULAR VOLUME 98.8 fl (80.0-96.0); PLATELET COUNT, AUTOMATED 250 10^3/uL (150-450); RED BLOOD COUNT 4.14 10^6/uL (4.30-6.10); WHITE BLOOD COUNT 8.1 10^3/uL (4.0-10.0)
[2019-06-09 11:59] LABS: ERYTHROCYTE SEDIMENTATION RATE 9 mm/hr (0-20)
[2019-06-09 12:18] LABS: ALBUMIN 3.2 GM/DL (3.2-5.2); BILIRUBIN,TOTAL 0.7 MG/DL (0.2-1.0); CALCIUM LEVEL 8.9 MG/DL (8.8-10.2); CHOLESTEROL RISK RATIO 2.65 (<5); CREATININE FOR GFR 1.55 MG/DL (0.70-1.30); GLOMERULAR FILTRATION RATE 45.9 (>35); POTASSIUM SERUM 4.3 MEQ/L (3.5-5.1); TOTAL PROTEIN 5.8 GM/DL (6.4-8.2)
== END ==
LOC: M SFHCCLAY 07:55
PROVIDERS: ATTEND Family Medicine
DX: N18.3 Chronic kidney disease, stage 3 (moderate) (principal); D63.1 Anemia in chronic kidney disease; I13.10 Hypertensive heart and chronic kidney disease without heart failure, with stage 1 through stage 4 chronic kidney disease, or unspecified chronic kidney disease; M35.3 Polymyalgia rheumatica; E78.5 Hyperlipidemia, unspecified

== ENCOUNTER → 2019-08-15 | Outpatient (CLI) | payer MEDICARE, OTHER ==
[~2019-08-15] MED LIST changes: +DOXY100T27 PO; +DULO30CA9 PO; +FURO20TA2 PO; +PRED5TA PO; +TIMO0.5S29 OU; +XARE10TA PO
[2019-08-15 16:55] LABS: HEMATOCRIT 42.6 % (42.0-52.0); HEMOGLOBIN 13.2 g/dl (13.5-17.5); MEAN CORPUSCULAR HEMOGLOBIN 30.7 pg (27.0-33.0); MEAN CORPUSCULAR VOLUME 99.1 fl (80.0-96.0); PLATELET COUNT, AUTOMATED 225 10^3/uL (150-450); WHITE BLOOD COUNT 24.9 10^3/uL (4.0-10.0)
[2019-08-15 17:17] LABS: ALBUMIN 3.5 GM/DL (3.2-5.2); BILIRUBIN,TOTAL 1.7 MG/DL (0.2-1.0); CALCIUM LEVEL 9.3 MG/DL (8.8-10.2); CREATININE FOR GFR 1.52 MG/DL (0.70-1.30); POTASSIUM SERUM 4.9 MEQ/L (3.5-5.1); TOTAL PROTEIN 6.2 GM/DL (6.4-8.2)
[2019-08-15 17:21] LABS: INR 1.57; PROTHROMBIN TIME 18.5 SECONDS (11.8-14.0)
[2019-08-15 17:23] LABS: D-DIMER QUANT 559.41 ng/ml (<500)
[2019-08-15 18:06] LABS: ATYPICAL LYMPH 2 % (0-5); BASOPHILS 1 % (0-1); LYMPHOCYTES 10 % (16-44); METAMYELOCYTES 1 % (0-0); MONOCYTES 3 % (0-5); MYELOCYTES 1 % (0-0); NEUTROPHILS 78 % (28-66); PLATELET ESTIMATE NORMAL (NORMAL)
[2019-08-15 18:07] LABS: ANISOCYTOSIS 1+; BURR CELLS 1+; HYPOCHROMASIA 1+
[2019-08-15 18:08] LABS: TEAR DROP CELLS 1+
== END ==
LOC: M WUC 12:18
PROVIDERS: ATTEND Nurse Practitioner Family
DX: M79.662 Pain in left lower leg (principal); Z79.01 Long term (current) use of anticoagulants

== ENCOUNTER → 2019-08-15 | Outpatient (CLI) | payer MEDICARE, OTHER ==
--- NOTE | 2019-08-15 16:38 | REP ---
Left lower extremity Duplex Doppler venous ultrasound: Real time compression and duplex Doppler interrogation of the left lower extremity deep venous system is performed. The left common femoral, superficial femoral and popliteal veins are fully compressible with transducer pressure and demonstrate normal spontaneous and phasic flow, without evidence of deep venous thrombosis. Impression: No evidence of deep venous thrombosis of the left lower extremity femoral popliteal venous system. Electronically Signed by Flip Daniels MD 08/15/2019 04:30 P
== END ==
LOC: M RAD 15:12
PROVIDERS: ATTEND Nurse Practitioner Family
DX: M79.662 Pain in left lower leg (principal); Z79.01 Long term (current) use of anticoagulants

== ENCOUNTER 2019-08-16 11:22 | Emergency (ER) | payer MEDICARE, OTHER ==
[~2019-08-16] VITALS: Ht 170.2 cm; Wt 89.6 kg
[~2019-08-16 11:22] MED LIST changes: -DOXY100T27 PO; -DULO30CA9 PO; -FURO20TA2 PO; -PRED5TA PO; -TIMO0.5S29 OU; -XARE10TA PO
[2019-08-16 13:33] LABS: BASO % 0.2 % (0.0-1.0); EOS % 0.1 % (0.0-3.0); HEMATOCRIT 37.2 % (42.0-52.0); MEAN CORPUSCULAR HEMOGLOBIN 31.2 pg (27.0-33.0); MEAN CORPUSCULAR HGB CONC 32.3 g/dl (32.0-36.5); MEAN CORPUSCULAR VOLUME 96.6 fl (80.0-96.0); MONO # 1.5 10^3/uL (0.0-0.8); MONO % 7.6 % (0.0-5.0); NEUTROPHILS % 85.9 % (36.0-66.0); PLATELET COUNT, AUTOMATED 177 10^3/uL (150-450); RED BLOOD COUNT 3.85 10^6/uL (4.30-6.10); WHITE BLOOD COUNT 19.8 10^3/uL (4.0-10.0)
[2019-08-16 13:44] LABS: INR 1.24; PARTIAL THROMBOPLASTIN TIME 35.2 SECONDS (25.0-38.4); PROTHROMBIN TIME 15.3 SECONDS (11.8-14.0)
[2019-08-16] MEDS ORDERED: DOXYCYCLINE HYCLATE 100 MG in D5W MINI-BAG PLUS 100 ML IV ONE (14:00)
[2019-08-16 14:04] LABS: ERYTHROCYTE SEDIMENTATION RATE 39 mm/hr (0-20)
[2019-08-16 14:09] LABS: BLOOD UREA NITROGEN 26 MG/DL (7-18); CALCIUM LEVEL 8.8 MG/DL (8.8-10.2); CARBON DIOXIDE LEVEL 27 MEQ/L (21-32); CHLORIDE LEVEL 105 MEQ/L (98-107); CREATININE FOR GFR 1.52 MG/DL (0.70-1.30); GLUCOSE, FASTING 105 MG/DL (70-100); POTASSIUM SERUM 4.2 MEQ/L (3.5-5.1); SODIUM LEVEL 138 MEQ/L (136-145)
[2019-08-16] MEDS ORDERED: NS 500 ML IV ONE (14:15)
[2019-08-16] MEDS ORDERED: DULO30CA9 PO (14:30)
[2019-08-16] MEDS ORDERED: TIMO0.5S29 OU (14:30)
[2019-08-16] MEDS ORDERED: PRED1TABL PO (14:30)
[2019-08-16] MEDS ORDERED: XARE10TA PO (14:30)
[2019-08-16] MEDS ORDERED: DOXY100T27 PO (14:30)
[2019-08-16] MEDS ORDERED: PRED5TA PO (14:30)
[2019-08-16] MEDS ORDERED: FURO20TA2 PO (14:30)
[2019-08-16] MEDS ORDERED: BENA20TA8 PO (14:30)
[2019-08-16 15:38] LABS: CK-MB VALUE MASS < 1.0 NG/ML (<3.6); CPK CREATINE PHOSPHOKINASE 44 U/L (39-308); MB/CK RELATIVE INDEX 2.27 (< OR =4); NT-PRO BNP 481 PG/ML (<450); TROPONIN I < 0.02 NG/ML (< 0.10)
[2019-08-16 15:54] VITALS: BP 143/64
--- NOTE | 2019-08-19 14:09 | ED PDOC ---
Post-Departure Follow-Up Reviewed blood culture and wound culture from 08/16/19 - decision made with Dr Roberto her to change antibiotics to bactrim ds bid for 10 days. I spoke to Bhaivn the pharmacist at [facility]. He reviewed this pt's renal function and advised the dose of bactrim i prescribed. Laura spoke to the pt and he is doing better. will manage as outpt. Dr Bronson to let Dr Gu know about change in medicaiton. Pattie Hagan MD Aug 19, 2019 14:09
== END 2019-08-16 16:11 | disposition home or self-care (01) ==
LOC: M ED 11:22
DX: L03.116 Cellulitis of left lower limb (principal); N17.9 Acute kidney failure, unspecified; Z86.711 Personal history of pulmonary embolism; Z86.718 Personal history of other venous thrombosis and embolism; Z79.01 Long term (current) use of anticoagulants; Z79.899 Other long term (current) drug therapy

== ENCOUNTER → 2019-08-24 | Outpatient (REF) | payer MEDICARE, OTHER ==
[~2019-08-24] MED LIST changes: +DOXY100T27 PO; +DULO30CA9 PO; +FURO20TA2 PO; +PRED5TA PO; +TIMO0.5S29 OU; +XARE10TA PO
[2019-08-24 17:42] LABS: CREATININE FOR GFR 1.98 MG/DL (0.70-1.30); GLOMERULAR FILTRATION RATE 34.6 (>35); POTASSIUM SERUM 5.7 MEQ/L (3.5-5.1)
[2019-08-24 17:46] LABS: BASO # 0.1 10^3/uL (0.0-0.2); BASO % 0.7 % (0.0-1.0); EOS # 0.1 10^3/uL (0.0-0.5); EOS % 0.5 % (0.0-3.0); HEMOGLOBIN 13.6 g/dl (13.5-17.5); LYMPH # 1.9 10^3/uL (1.5-5.0); LYMPH % 14.5 % (24.0-44.0); MEAN CORPUSCULAR HEMOGLOBIN 30.6 pg (27.0-33.0); MEAN CORPUSCULAR HGB CONC 30.9 g/dl (32.0-36.5); MEAN CORPUSCULAR VOLUME 99.1 fl (80.0-96.0); MONO # 0.8 10^3/uL (0.0-0.8); MONO % 5.7 % (0.0-5.0); NEUTROPHILS # 10.1 10^3/uL (1.5-8.5); NEUTROPHILS % 76.2 % (36.0-66.0); PLATELET COUNT, AUTOMATED 419 10^3/uL (150-450); RED BLOOD COUNT 4.44 10^6/uL (4.30-6.10); WHITE BLOOD COUNT 13.3 10^3/uL (4.0-10.0)
== END ==
LOC: M SFHCADAM 11:49
PROVIDERS: ATTEND Physician Assistant
DX: L03.116 Cellulitis of left lower limb (principal); S81.812D Laceration without foreign body, left lower leg, subsequent encounter; N18.3 Chronic kidney disease, stage 3 (moderate)
CPT/HCPCS: 80048; 85025; G0463

== ENCOUNTER → 2019-08-29 | Outpatient (REF) | payer MEDICARE, OTHER ==
[2019-08-29 12:49] LABS: CALCIUM LEVEL 8.8 MG/DL (8.8-10.2); CREATININE FOR GFR 1.69 MG/DL (0.70-1.30); GLOMERULAR FILTRATION RATE 41.6 (>35); POTASSIUM SERUM 4.3 MEQ/L (3.5-5.1)
== END ==
LOC: M SFHCCLAY 06:51
PROVIDERS: ATTEND Physician Assistant
DX: L03.116 Cellulitis of left lower limb (principal)

== ENCOUNTER → 2020-02-21 | Outpatient (REF) | payer MEDICARE, OTHER ==
[2020-02-21 17:38] LABS: HEMATOCRIT 44.3 % (42.0-52.0); HEMOGLOBIN 13.7 g/dl (13.5-17.5); MEAN CORPUSCULAR HEMOGLOBIN 30.4 pg (27.0-33.0); MEAN CORPUSCULAR HGB CONC 30.9 g/dl (32.0-36.5); MEAN CORPUSCULAR VOLUME 98.4 fl (80.0-96.0); PLATELET COUNT, AUTOMATED 297 10^3/uL (150-450); WHITE BLOOD COUNT 10.8 10^3/uL (4.0-10.0)
[2020-02-21 18:04] LABS: ALBUMIN 3.4 GM/DL (3.2-5.2); ALT/SGPT 18 U/L (12-78); BILIRUBIN,TOTAL 0.7 MG/DL (0.2-1.0); BLOOD UREA NITROGEN 19 MG/DL (7-18); CALCIUM LEVEL 9.2 MG/DL (8.8-10.2); CARBON DIOXIDE LEVEL 30 MEQ/L (21-32); CHLORIDE LEVEL 107 MEQ/L (98-107); CHOLESTEROL LEVEL 179 MG/DL (<200); CHOLESTEROL RISK RATIO 2.521 (<5); CREATININE FOR GFR 1.44 MG/DL (0.70-1.30); FREE T4 0.99 NG/DL (0.76-1.46); GLOMERULAR FILTRATION RATE 49.9 (>35); GLUCOSE, FASTING 98 MG/DL (70-100); HDL CHOLESTEROL 71 MG/DL (>40); LDL CHOLESTEROL 87 MG/DL (<100); NON-HDL-C 108 MG/DL; POTASSIUM SERUM 5.6 MEQ/L (3.5-5.1); RHEUMATOID FACTOR QUANT < 10.0 IU/ML (<15.0); SODIUM LEVEL 141 MEQ/L (136-145); TOTAL PROTEIN 5.8 GM/DL (6.4-8.2); TRIGLYCERIDES LEVEL 106 MG/DL (<150)
[2020-02-21 20:14] LABS: ERYTHROCYTE SEDIMENTATION RATE 6 mm/hr (0-20)
[2020-02-24 00:07] LABS: ANA (HEP2) Negative (.); CYCLIC CITRULLINATED PEPTIDE 5 units (0-19)
== END ==
LOC: M SFHCADAM 11:27
PROVIDERS: ATTEND Family Medicine
DX: M35.3 Polymyalgia rheumatica (principal); N18.30 Chronic kidney disease, stage 3 unspecified; D63.1 Anemia in chronic kidney disease; E78.5 Hyperlipidemia, unspecified; I13.10 Hypertensive heart and chronic kidney disease without heart failure, with stage 1 through stage 4 chronic kidney disease, or unspecified chronic kidney disease; M06.00 Rheumatoid arthritis without rheumatoid factor, unspecified site

== ENCOUNTER → 2020-05-31 | Outpatient (CLI) | payer MEDICARE, OTHER ==
--- NOTE | 2020-05-31 09:33 | REP ---
INDICATION: M15.9,GENERALIZED OSTEOARTHRITIS. COMPARISON: None. TECHNIQUE: Four views each hand FINDINGS: Left hand: There is moderate asymmetric intra digital joint space narrowing affecting all DIP and PIP joints as well as the interphalangeal joint of the 1st digit. Early marginal osteophyte formation is seen involving all intra digital joints. There is no periarticular osteopenia and there are no marginal erosions. There is no acute fracture, dislocation, or subluxation. Small marginal osteophytes are seen arising from all meta carpal heads moderate to severe degenerative changes are also seen involving the 1st carpometacarpal joint with asymmetric joint space narrowing, subchondral sclerosis, and marginal osteophytosis. Right hand: Similar findings to a similar degree are seen involving the right hand with exception of worsened chronic change involving the 1st and particularly 2nd DIP joints. IMPRESSION: Bilateral degenerative changes as described above. <Electronically signed by Sg Jacob > 05/31/20 [id number]
--- NOTE | 2020-05-31 09:35 | REP ---
INDICATION: M70.62, TROCHANTERIC BURSITIS OF LEFT HIP. COMPARISON: None TECHNIQUE: AP pelvis and bilateral AP and frog-lateral views of the hip FINDINGS: The bones are demineralized. Mild somewhat asymmetric hip joint space narrowing is seen bilaterally. There is no prominent marginal osteophytosis or buttressing. There is no acute fracture, dislocation, or subluxation. IMPRESSION: Chronic changes as described above. <Electronically signed by Sg Jacob > 05/31/20 [id number]
--- NOTE | 2020-05-31 09:43 | REP ---
INDICATION: M15.9,GENERALIZED OSTEOARTHRITIS. COMPARISON: None TECHNIQUE: Four views of each foot FINDINGS: Four views of the right foot: There is moderate intra digital joint space narrowing affecting all digits with severe asymmetric joint space narrowing affecting the 1st metatarsal-phalangeal joint with subchondral sclerosis and prominent marginal osteophytosis. There is a large plantar calcaneal heel spur and a minimal retrocalcaneal heel spur. There is suspected advanced degenerative change seen involving the ankle but in a limited fashion on this foot radiograph. There is no evidence of an acute fracture. There is evidence of pes planus. Four views of the left foot: Moderate degenerative changes are seen involving all intra digital joint spaces and to a somewhat lesser degree than that seen in the right foot with the exception of the 1st metatarsal-phalangeal joint which is as severe. Advanced chronic changes are also seen involving the midfoot. There is a large plantar calcaneal heel spur. There is evidence of an old navicular fracture. Suspected advanced degenerative changes are seen involving the ankle but seen in a limited fashion on this foot radiograph. There is evidence of pes planus. IMPRESSION: Chronic changes as described above. <Electronically signed by Sg Jacob > 05/31/20 [id number]
--- NOTE | 2020-05-31 09:45 | REP ---
INDICATION: M15.9,GENERALIZED OSTEOARTHRITIS. COMPARISON: None. TECHNIQUE: Bilateral wrist series: Four views of each wrist. FINDINGS: There is overall demineralization consistent with osteopenia. Vascular calcification is noted in the distal forearm on the left. There is advanced bilateral 1st carpometacarpal joint osteoarthritis. Joint space narrowing, spur formation, and sclerosis is visible at these articulations bilaterally. There is a small accessory ossicle adjacent to the PE is a form bone on the right. Joint spaces are otherwise preserved. Periarticular soft tissues are unremarkable. No erosive changes are seen. IMPRESSION: Bilateral 1st carpometacarpal joint osteoarthritis. Diffuse osteopenia. <Electronically signed by Delonte Herrera > 05/31/20 [id number]
--- NOTE | 2020-05-31 09:47 | REP ---
INDICATION: M15.9, GENERALIZED OSTEOARTHRITIS. COMPARISON: None. TECHNIQUE: Four views of each ankle FINDINGS: Right ankle: There is rather marked appearing asymmetric narrowing of the mortise. There is medial tibiotalar asymmetric narrowing with marginal osteophytosis. There is a smoothly marginated well corticated ossific density seen at the level of the medial malleolus likely representing an old fracture. Chronic changes are seen involving the subtalar joints. There is a large plantar calcaneal heel spur and a small retrocalcaneal heel spur. Vascular calcifications are noted. There is an os trigonum. Left ankle: There is moderate asymmetric narrowing of the mortise. Smoothly marginated well corticated ossific densities are seen distal to the medial malleolus consistent with either accessory ossicles or old fractures. Chronic changes are seen involving the subtalar joints. There is an os trigonum. There is a large plantar calcaneal heel spur and a small retrocalcaneal heel spur. Vascular calcifications are noted. IMPRESSION: Chronic changes as described above. <Electronically signed by Sg Jacob > 05/31/20 [id number]
--- NOTE | 2020-05-31 09:50 | REP ---
INDICATION: M15.9,GENERALIZED OSTEOARTHRITIS. COMPARISON: None TECHNIQUE: Seven views including flexion and extension bending views FINDINGS: Marginal osteophytosis is seen bilaterally at all lumbar levels and of varying degrees particularly seen on the left at the L2-3 level. There is advanced disc space narrowing L2-3 through L4-5 inclusive. Air densities are seen at the L1-2 and L2-3 levels consistent with vacuum phenomena from degenerative disc disease. Anterior lipping is seen at every level. There is a straightening of the lumbar spine. The bones are demineralized. Degenerative facet joint changes are seen bilaterally at every level particularly L4-5 and L5-S1. There is no evidence of spondylolysis or spondylolisthesis. IMPRESSION: Advanced chronic changes as described above. <Electronically signed by Sg Jacob > 05/31/20 [id number]
== END ==
LOC: M CLY 07:09
PROVIDERS: ATTEND Internal Medicine
DX: M15.9 Polyosteoarthritis, unspecified (principal); M70.62 Trochanteric bursitis, left hip; M85.831 Other specified disorders of bone density and structure, right forearm; M85.832 Other specified disorders of bone density and structure, left forearm; M51.36 Other intervertebral disc degeneration, lumbar region

== ENCOUNTER → 2020-05-31 | Outpatient (REF) | payer MEDICARE, OTHER ==
[2020-05-31 12:44] LABS: MAGNESIUM LEVEL 2.1 MG/DL (1.8-2.4); PHOSPHORUS LEVEL 3.6 MG/DL (2.5-4.9); THYROID STIMULATING HORMONE 3.43 uIU/ML (0.358-3.740); TOTAL 25(OH) VITAMIN D 16.6 NG/ML (30.0-100.0)
== END ==
LOC: M SFHCRHEU 07:01
PROVIDERS: ATTEND Internal Medicine
DX: M79.10 Myalgia, unspecified site (principal)

== ENCOUNTER → 2020-10-01 | Outpatient (REF) | payer MEDICARE, OTHER ==
[~2020-10-01] MED LIST changes: +AMOX875T2 PO; +PRED25TA PO
[2020-10-01 17:51] LABS: APPEARANCE, URINE CLEAR (CLEAR); BACTERIA, URINE AUTO NEGATIVE (NEGATIVE); BILIRUBIN, URINE AUTO NEGATIVE (NEGATIVE); BLOOD, URINE BLOOD NEGATIVE (NEGATIVE); COLOR, URINE YELLOW (YELLOW); GLUCOSE, URINE (UA) AUTO NEGATIVE (NEGATIVE); KETONE, URINE AUTO NEGATIVE (NEGATIVE); LEUKOCYTE ESTERASE, URINE AUTO NEGATIVE (NEGATIVE); MUCUS, URINE SMALL (NEGATIVE); NITRITE, URINE AUTO NEGATIVE (NEGATIVE); PROTEIN, URINE AUTO NEGATIVE (NEGATIVE); RBC, URINE AUTO 1 /HPF (0-3); SPECIFIC GRAVITY URINE AUTO 1.013 (1.002-1.035); SQUAMOUS EPITHELIAL CELL UR AU 0 /HPF (0-6); UROBILINOGEN, URINE AUTO 0.2 mg/dL (0.0-2.0); WBC, URINE AUTO 0 /HPF (0-3)
[2020-10-01 18:08] LABS: CREATININE,RANDOM URINE 89.1 MG/DL; TOTAL PROTEIN,RANDOM URINE 8.9 MG/DL (0.0-12.0)
[2020-10-01 18:09] LABS: C REACTIVE PROTEIN QUANTITATIV 0.3 MG/DL (0.00-0.30); CALCIUM LEVEL 9.2 MG/DL (8.8-10.2); CREATININE FOR GFR 1.45 MG/DL (0.70-1.30); GLOMERULAR FILTRATION RATE 49.5 (>35); POTASSIUM SERUM 4.4 MEQ/L (3.5-5.1)
[2020-10-01 18:21] LABS: TOTAL 25(OH) VITAMIN D 42.9 NG/ML (30.0-100.0)
[2020-10-02 10:05] LABS: DRVV SCREEN 71.6 SEC
[2020-10-02 10:07] LABS: PTT LUPUS TYPE ANTICOAG SCREEN 1.9 (0-1.2)
[2020-10-02 10:13] LABS: DRVV CONFIRM 53.3 SEC; LUPUS CONFIRM RATIO 1.5
[2020-10-02 10:14] LABS: NORMALIZED RATIO 1.27 (0.00-1.20)
[2020-10-04 04:07] LABS: HEXAGONAL PHASE PHOSPHOLIPID 0 sec (0-11)
== END ==
LOC: M SFHCRHEU 12:52
PROVIDERS: ATTEND Internal Medicine
DX: M06.4 Inflammatory polyarthropathy (principal); E55.9 Vitamin D deficiency, unspecified; N18.32 Chronic kidney disease, stage 3b
CPT/HCPCS: 80048; 81001; 82306; 82570; 84156; 85598; 85613; 85652; 85730; 86140; 86160; 86162; 96372; G0463; J1030

== ENCOUNTER 2020-10-06 14:37 | Inpatient (IN) | payer MEDICARE, OTHER ==
[~2020-10-06] VITALS: Ht 170.2 cm; Wt 92.9 kg
[~2020-10-06 14:37] MED LIST changes: -AMOX875T2 PO; -PRED25TA PO
[2020-10-06 15:45] LABS: HEMATOCRIT 44.5 % (42.0-52.0); HEMOGLOBIN 14.3 g/dl (13.5-17.5); MEAN CORPUSCULAR HEMOGLOBIN 31.8 pg (27.0-33.0); MEAN CORPUSCULAR HGB CONC 32.1 g/dl (32.0-36.5); MEAN CORPUSCULAR VOLUME 98.9 fl (80.0-96.0); PLATELET COUNT, AUTOMATED 268 10^3/uL (150-450)
[2020-10-06 16:05] LABS: INR 0.98; PROTHROMBIN TIME 13.4 SECONDS (12.7-14.5)
[2020-10-06 16:06] LABS: PARTIAL THROMBOPLASTIN TIME 27.4 SECONDS (25.9-37.0)
[2020-10-06 16:13] LABS: ALBUMIN 3.2 GM/DL (3.2-5.2); ALT/SGPT 17 U/L (12-78); BILIRUBIN,DIRECT 0.4 MG/DL (0.0-0.2); BILIRUBIN,TOTAL 1.3 MG/DL (0.2-1.0); CK-MB VALUE MASS 1.1 NG/ML (<3.6); CPK CREATINE PHOSPHOKINASE 33 U/L (39-308); LIPASE 148 U/L (73-393); MB/CK RELATIVE INDEX 3.33 (< OR =4); TOTAL PROTEIN 6.1 GM/DL (6.4-8.2); TROPONIN I < 0.02 NG/ML (< 0.10)
[2020-10-06 16:16] LABS: WHITE BLOOD COUNT 21.1 10^3/uL (4.0-10.0)
[2020-10-06 16:19] LABS: ATYPICAL LYMPH 3 % (0-5); LYMPHOCYTES 11 % (16-44); MONOCYTES 7 % (0-5); MYELOCYTES 1 % (0-0); NEUTROPHILS 77 % (28-66)
[2020-10-06 16:21] LABS: PLATELET CLUMPS SMALL AMT; PLATELET ESTIMATE NORMAL (NORMAL)
[2020-10-06 16:22] LABS: SCHISTOCYTES 1+
[2020-10-06] MEDS ORDERED: NS 1,000 ML IV ONE (16:25)
--- NOTE | 2020-10-06 17:08 | REP ---
INDICATION: abdominal pain and GI bleeding COMPARISON: None TECHNIQUE: Axial noncontrast images from the lung bases to the pubic symphysis with coronal and sagittal reformations. This CT examination was performed using the following dose reduction techniques: Automated exposure control, adjustment of mA and/or kv according to the patient's size, and use of iterative reconstruction technique. FINDINGS: There is circumferential mural thickening involving the mid transverse through mid descending colon suggesting an infectious/inflammatory colitis. Remainder of the small and large bowel is grossly unremarkable. There is no evidence for obstruction and no free air or free fluid to suggest perforation. Liver demonstrates multiple hypodensities likely representing cysts. There is relative absence of the left hepatic lobe with a small area of calcification versus surgical change and correlation is recommended.. Spleen, pancreas, gallbladder, bilateral adrenal glands are normal. Kidneys demonstrate atrophic changes along with nonobstructing left renal calculi up to 6 mm and 3.2 cm round lesion likely representing hyperdense cyst and less likely mass. Pelvis demonstrates normal bladder and age-appropriate prostate/seminal vesicles. Small fat containing inguinal hernias noted. No ascites. No free air. No adenopathy. Atherosclerotic changes to the aorta noted without aneurysm. Musculoskeletal structures demonstrate degenerative changes without acute osseous abnormality. Lung bases are essentially clear. IMPRESSION: No acute abdominopelvic pathology appreciated. 1. Infectious/inflammatory colitis involving the mid transverse through mid descending colon. 2. Nonacute hepatic and renal findings which may warrant follow-up ultrasound examination. 3. Remainder of the examination as above. <Electronically signed by Neo Palomo > 10/06/20 [id number]
[2020-10-06] MEDS ORDERED: PIPERACILLIN/TAZOBACTAM SOD 4.5 GM in D5W MINI-BAG PLUS 50 ML IV ONE (17:35)
[2020-10-06] MEDS ORDERED: MAALOX 30 ML SUSP *UDC PO PRN (18:20)
[2020-10-06] MEDS ORDERED: MOM 30ML SUSPENSION UDC PO PRN (18:20)
[2020-10-06] MEDS ORDERED: ACETAMINOPHEN TAB 650MG DOSE (2X325MG) PO PRN (18:20)
--- NOTE | 2020-10-06 18:35 | HPEPDOC ---
[facility] Medical History & Physical Date of Admission Oct 06, 2020 Date of Service: Oct 06, 2020 History and Physical Chief complaint: Who presented to the ER with abdominal pain and rectal bleeding History of present illness: Patient is an 85-year-old male who presented to the emergency room with compressive abdominal pain and blood in his stool for the last 2 days. Patient has reported that yesterday he went and ordered a Fish (Laisha) sandwich. After eating his meal he reported abdominal pain described the pain occurring in his left lower abdomen, 6/10 continuous, worse with positioning, alleviated by rest. Patient reported that he had a bowel movement that was essentially all blood. Patient reports that he went to bed, still experiencing abdominal pain when he woke up in the morning he had another bowel movement that was essentially all blood. Patient has not expressed any further bloody bowel movements throughout the day. Patient had another bowel movement in the ER, however, he reports that there is no blood in the stool at this time. Patient denies any nausea or vomiting. Has not experience any chest pain, shortness of breath or change in his baseline cough. She denies any urinary discomfort. Patient reports chills and subjective fevers. Patient reports that currently his appetite is poor. Past Medical History: HTN DLP DVT / PE (2008) Hx of LLE Superficial thrombophlebitis (2006) / Chronic LLE Wound R carotid artery stenosis R lung nodule Polymyalgia Rheumatic (Follows with Rheumatology; on Chronic Prednisone) OA Vitamin D deficiency Central retinal vein occlusion (2010) Chronic back pain / DDD / DJD (Follows pain clinic) BPH Past Surgical History: Right knee arthroplasty 2017 Allergies: See below Medications: See below Family History: - Father when he was child. 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 Review of Systems: 10 point review of systems complete, all negative otherwise stated in HPI Physical exam: - Vitals: BP [150/65], HR [94], RR [18], Sat [96%RA], Temp [98.5F] - General: Lying in bed, Speaking in full sentences, AAOx3 - HEENT: NC, AT, PERRLA - CVS: RRR, +S1S2 - Lungs: Fair air entry bilaterally, No appreciable wheezing / rales / rhonchi - Abdomen: Soft, Non-distended, Tenderness at LLQ - Extremities: 1+ pitting edema bilaterally, No calf tenderness - Neuro: No focal motor or sensory deficit - Skin: No visible rashes Labs: See below Imaging: CT abdomen / pelvis 10/06: No acute abdominopelvic pathology appreciated. 1. Infectious/inflammatory colitis involving the mid transverse through mid descending colon. 2. Non-acute hepatic and renal findings which may warrant follow-up ultrasound examination. 3. Remainder of the examination as above. EKG: See below Assessment and Plan: Abdominal pain - likely 2/2 colitis - likely 2/2 infectious etiology - Who presented to the emergency room with complaints of abdominal pain and blood in his stool since yesterday evening - Patient is hemodynamically stable and afebrile - Leukocytosis with neutrophil predominance - No lactic acidosis - Imaging noted above - Will check blood cultures / GI panel / Procalcitonin / CRP - Will hold Xarelto - Will start Zosyn (Day #1) - Case discussed with surgery; will continue with medical management at this time Acute blood loss - Hemoglobin appears to be stable - Similar to baseline - Patient has been typed and screened - Will trend H&H [id number] - Will hold Xarelto - Patient has been consented for blood transfusion if required HTN - BP well controlled - Will hold Furosemide for now - c/w Benazapril DLP - c/w Atorvastatin DVT / PE (2008) - Will hold Xarelto at this time given active GI bleed - Discussed risks and benefits with patient; has a verbalized understanding Hx of LLE Superficial thrombophlebitis (2006) / Chronic LLE Wound - c/w wound care R carotid artery stenosis R lung nodule - Patient has received a PET scan in the past - Patient follows with primary care for serial imaging Polymyalgia Rheumatic - Follows with Rheumatology - c/w Prednisone based on outpatient dosing OA - c/w Tylenol PRN Vitamin D deficiency - Will continue with vitamin D supplementation on discharge Central retinal vein occlusion (2010) Chronic back pain / DDD / DJD - Follows pain clinic - c/w Duloxetine BPH - c/w Finasteride / Tamsulosin DVT prophylaxis - Will start TEDSs/Sequentials Vital Signs Vital Signs Date Time Temp Pulse Resp B/P (MAP) Pulse Ox O2 Delivery O2 Flow Rate FiO2 10/06/20 14:41 98.5 94 18 150/65 (93) 96 Room Air Laboratory Data Labs 24H Laboratory Tests 2 10/06/20 15:12: Neutrophils (%) (Auto) , Nucleated Red Blood Cells % (auto) 0.0, Neutrophils 77H, Band Neutrophils 1, Lymphocytes (Manual) 11L, Monocytes (Manual) 7H, Myelocytes 1H, Atypical Lymphocytes 3, Schistocytes 1+, Platelet Estimate NORMAL, Clumped Platelets SMALL AMT, Prothrombin Time 13.4, Prothromb Time International Ratio 0.98, Activated Partial Thromboplast Time 27.4, Lactic Acid Level 1.4, Total Bilirubin 1.3H, Direct Bilirubin 0.4H, Aspartate Amino Transf (AST/SGOT) 14, Alanine Aminotransferase (ALT/SGPT) 17, Alkaline Phosphatase 70, Total Creatine Kinase 33L, Creatine Kinase MB 1.1, Creatine Kinase MB Relative Index 3.33, Troponin I < 0.02, Total Protein 6.1L, Albumin 3.2, Albumin/Globulin Ratio 1.1, Lipase 148 10/06/20 15:34: POC Glucose (Misc Panel) 119H, POC Sodium (Misc Panel) 141, POC Potassium (Misc Panel) 4.5, POC Chloride (Misc Panel) 104, POC Total CO2 (Misc Panel) 27.0, POC Blood Urea Nitrogen (Misc Panel 24, POC Ionized Calcium (Misc Panel) 5.4H, POC Creatinine (Misc Panel) 1.6H, POC Hematocrit (Misc Panel) 43.0 10/06/20 17:48: Urine Color YELLOW, Urine Appearance CLEAR, Urine pH 5.0, Urine Specific [place] 1.020, Urine Protein NEGATIVE, Urine Glucose (UA) NEGATIVE, Urine Ketones NEGATIVE, Urine Blood NEGATIVE, Urine Nitrite NEGATIVE, Urine Bilirubin NEGATIVE, Urine Urobilinogen 0.2, Urine Leukocyte Esterase NEGATIVE, Urine WBC (Auto) 2, Urine RBC (Auto) 1, Urine Hyaline Casts (Auto) 0, Urine Bacteria (Auto) 1+H, Urine Squamous Epithelial Cells 0, Urine Mucus (Auto) MODERATE, Urine Sperm (Auto) 10/06/20 18:15: CBC/BMP Laboratory Tests 10/06/20 15:12 Microbiology Microbiology 10/06/20 Gastrointestinal Tract Panel (PCR), Received Pending Home Medications Scheduled Atorvastatin Calcium (Lipitor) 20 Mg Tab, 20 MG PO DAILY Benazepril HCl (Benazepril HCl) 20 Mg Tablet, 20 MG PO DAILY Doxycycline Monohydrate (Doxycycline Monohydrate) 100 Mg Tablet, 100 MG PO BID Duloxetine Hcl (Duloxetine HCl) 30 Mg Capsule.dr, 30 MG PO BID Finasteride (Proscar) 5 Mg Tab, 5 MG PO DAILY Furosemide (Furosemide) 20 Mg Tablet, 20 MG PO DAILY Prednisone (Prednisone) 5 Mg Tablet, 5 MG PO DAILY TOTAL OF 8MG DAILY Prednisone (Prednisone) 1 Mg Tablet, 3 MG PO DAILY TOTAL OF 8MG DAILY Rivaroxaban (Xarelto) 10 Mg Tablet, 10 MG PO QHS Tamsulosin HCl (Flomax) 0.4 Mg Cap, 0.4 MG PO DAILY Timolol Maleate (Timolol Maleate) 0.5% 5ML Drops, 1 DROP OU BID Allergies Coded Allergies: No Known Allergies (Unverified , 08/16/19) RONN OCONNRO MD Oct 06, 2020 18:35
[2020-10-06] MEDS ORDERED: PRED25TA PO (18:41)
[2020-10-06] MEDS ORDERED: HOME MED LIST COMPLETE! XX SCH (18:45)
[2020-10-06 19:03] LABS: RSV AMPLIFICATION NEGATIVE (NEGATIVE)
--- NOTE | 2020-10-06 19:27 | ECGEPIP ---
[facility] - ED Test Date: 2020-10-06 Pat Name: DEMETRIS DUFF Department: Room: - Gender: Male Etl Tester: ABD PAIN/ GI BLEED : 1935 Requested By: Pattie Marmolejo Order Number: [id number] Reading MD: Pattie Marmolejo Measurements Intervals [place] Rate: 89 P: 32 MD: 150 QRS: -12 QRSD: 84 T: 44 QT: 340 QTc: 413 Interpretive Statements Sinus rhythm with occasional premature ventricular complexes and premature atrial com complexes Minimal voltage criteria for LVH, may be normal variant ( R in aVL ) Nonspecific ST T wave changes No prior ECG for comparison Electronically Signed on 10-06-2020 19:27:35 EDT by Pattie Marmolejo
[2020-10-06 19:29] LABS: HEMATOCRIT 40.1 % (42.0-52.0); HEMOGLOBIN 12.7 g/dl (13.5-17.5)
[2020-10-06 21:57] VITALS: BP 159/67
[2020-10-06] MEDS: DOCUSATE SODIUM 100MG CAPSULE PO SCH (22:00)
[2020-10-06] MEDS: DULoxetine 30 MG CAP (CYMBALTA) PO SCH (22:36)
[2020-10-06] MEDS: TIMOLOL MALEATE 0.5% OPHTH SOLN 5 ML OU SCH (23:14)
[2020-10-07] VITALS: BP 125/59
[2020-10-07 00:08] LABS: HEMATOCRIT 37.8 % (42.0-52.0); HEMOGLOBIN 12.2 g/dl (13.5-17.5)
[2020-10-07] MEDS: PIPERACILLIN/TAZOBACTAM SOD 3.375 GM in D5W MINI-BAG PLUS 50 ML IV SCH ×5 (00:15→23:47)
[2020-10-07 04:00] VITALS: BP 102/56
[2020-10-07 04:29] LABS: BASO # 0.1 10^3/uL (0.0-0.2); BASO % 0.3 % (0.0-1.0); EOS # 0.1 10^3/uL (0.0-0.5); EOS % 0.4 % (0.0-3.0); HEMATOCRIT 36.8 % (42.0-52.0); HEMOGLOBIN 11.9 g/dl (13.5-17.5); LYMPH # 2.6 10^3/uL (1.5-5.0); LYMPH % 13.7 % (24.0-44.0); MEAN CORPUSCULAR HEMOGLOBIN 31.7 pg (27.0-33.0); MEAN CORPUSCULAR HGB CONC 32.3 g/dl (32.0-36.5); MEAN CORPUSCULAR VOLUME 98.1 fl (80.0-96.0); MONO # 1.8 10^3/uL (0.0-0.8); MONO % 9.7 % (2.0-8.0); NEUTROPHILS # 14.2 10^3/uL (1.5-8.5); NEUTROPHILS % 75.2 % (36.0-66.0); PLATELET COUNT, AUTOMATED 208 10^3/uL (150-450); RED BLOOD COUNT 3.75 10^6/uL (4.30-6.10)
[2020-10-07 04:34] LABS: WHITE BLOOD COUNT 18.9 10^3/uL (4.0-10.0)
[2020-10-07 04:48] LABS: CALCIUM LEVEL 8.4 MG/DL (8.8-10.2); CREATININE FOR GFR 1.43 MG/DL (0.70-1.30); GLOMERULAR FILTRATION RATE 50.3 (>35); MAGNESIUM LEVEL 1.9 MG/DL (1.8-2.4); POTASSIUM SERUM 4.2 MEQ/L (3.5-5.1)
[2020-10-07 07:44] VITALS: BP 126/59
--- NOTE | 2020-10-07 08:19 | IPNPDOC ---
Text Note Date of Service The patient was seen on 10/07/20. NOTE Subjective: Patient is an 85 year old male admitted yesterday abdominal pain with hematochezia. Pt says he had a bowel movement this morning and there continues to be blood in his stool, but much less than before. His abdominal pain is unchanged with minimal improvement, it is worse with movement and palpation, but tenable at rest. Review of systems: Pt denies headache, N/V, chest pain, palpitations, SOB, dyspnea, urinary pain, numbness, and tingling, chills. Patient's ABD pain is worst in the LLQ and does radiate up to the LUQ with movement or palpation. Objective: Physical exam: Vitals: See below General: Pt was supine in hospital bed and in no acute distress on exam. Psych: Alert and oriented*4. HEENT: EOMI, No scleral icterus, moist mucous membranes. Heart: RRR, Normal S1 and S2. No murmurs or extra heart sounds. Lungs: BL equal breath sounds present. No wheezing, rhonchi, or stridor present. ABD: Bowel sounds present on exam. Abdomen is soft, tender to moderate palpation over LLQ, without rebound or guarding, non-distended. Neuro: No weakness or loss of sensation. Extremities: No edema in the legs is present. Vascular: +2/4 pulses posterior tibial and pedal pulses BL. Assessment: 85 year old male with past medical history of HTN, hyperlipidemia, DVT &PE, hyperlipidemia, polymyalgia rheumatica, OA, chronic back pain, and BPH presenting with new onset abdominal pain and hematochezia concerning for infectious colitis based on CT imaging. Plan: # Abdominal pain - likely 2/2 colitis - Abdominal pain not worse since yesterday, hematochezia improved, normotensive, afebrile, no lactic acidosis, and improving leukocytosis since admission. GI p rojas negative. - Procalcitonin and blood culturesx2 are pending. CRP is elevated. - CT scan showed inflammation of the transverse and descending colon. - Continue holding Xarelto because of hematochezia - Continue Zosyn (Day #2) - Case was initially discussed with surgery; will continue with medical management at this time # Acute blood loss - Hemoglobin appears to be stable - was 11.9 today - similar to baseline - Will trend H&H [id number] till midnight today. - Will hold Xarelto - Patient has been consented for blood transfusion if required # HTN - pt has been normotensive through hospital stay - Will hold Furosemide for now - c/w Benazapril # Hyperlipidemia - c/w Atorvastatin # Hx of LLE Superficial thrombophlebitis (2006) / Chronic LLE Wound - c/w wound care # R carotid artery stenosis - Continue with Atorvastatin # R-lung nodule - Patient has received a PET scan in the past - Patient follows with primary care for serial imaging # Polymyalgia Rheumatica - Follows with Rheumatology - c/w Prednisone based on outpatient dosing # Osteoarthritis - c/w Tylenol PRN # Vitamin D deficiency - Will continue with vitamin D supplementation on discharge # Central retinal vein occlusion (2010) # Chronic back pain / DDD / DJD - Follows pain clinic - c/w Duloxetine # BPH - c/w Finasteride / Tamsulosin # DVT / PE prophylaxis - Hold Xeralto because of hematochezia - Discussed risks and benefits with patient; has a verbalized understanding - c/w TEDSs/Sequentials CODE STATUS: FULL CODE Disposition: Pending clinical improvement VS,Ramya, I+O VS, Ramya, I+O Laboratory Tests 10/06/20 15:12 10/06/20 19:18 10/06/20 23:41 10/07/20 04:04 Vital Signs Date Time Temp Pulse Resp B/P (MAP) Pulse Ox O2 Delivery O2 Flow Rate FiO2 10/07/20 07:44 99.0 80 18 126/59 (81) 97 Room Air I&O- Last 24 Hours up to 6 AM 10/07/20 06:00 Intake Total 1100 ml Balance 1100 ml GME ATTESTATION GME ATTESTATION My faculty preceptor for this patient encounter was physically present during the encounter and was fully available. All aspects of the patient interview, examination, medical decision making process, and medical care plan development were reviewed and approved by the faculty preceptor. The faculty preceptor is aware and concurs with the plan as stated in the body of this note and will attest to such by his/her cosignature. ATTENDING NOTE I, Danielle Oconnor, have independently examined this patient and performed my own physical exam, as well as reviewed the documentation and edited where necessary. I have discussed in detail with the resident / student the findings and plan of treatment as documented by the resident / student and edited their note. I agree with their findings and treatment plan and have edited their documentation. I will continue to follow the patient during this hospital stay. FLORIN RAO OMS-3 Oct 07, 2020 08:19 DANIELLE OCONNOR MD Oct 07, 2020 12:51 JASMYNE MCKNIGHT DO Oct 07, 2020 15:10
[2020-10-07] MEDS: DULoxetine 30 MG CAP (CYMBALTA) PO SCH ×2 (08:23→21:36)
[2020-10-07] MEDS: ATORVASTATIN 20 MG TAB PO SCH (08:23)
[2020-10-07] MEDS: BENAZEPRIL 20 MG TAB PO SCH (08:23)
[2020-10-07] MEDS: TIMOLOL MALEATE 0.5% OPHTH SOLN 5 ML OU SCH ×2 (08:23→21:37)
[2020-10-07] MEDS: predniSONE 2.5 MG TAB PO SCH (08:26)
[2020-10-07] MEDS: DOCUSATE SODIUM 100MG CAPSULE PO SCH ×2 (08:26→21:00)
[2020-10-07 12:00] VITALS: BP 134/63
[2020-10-07 12:09] LABS: HEMATOCRIT 35.7 % (42.0-52.0); HEMOGLOBIN 11.5 g/dl (13.5-17.5)
[2020-10-07 16:00] VITALS: BP 120/58
[2020-10-07 18:27] LABS: HEMATOCRIT 36.2 % (42.0-52.0); HEMOGLOBIN 11.4 g/dl (13.5-17.5)
[2020-10-07 20:00] VITALS: BP 118/57
[2020-10-08] VITALS: BP 148/64
[2020-10-08 00:11] LABS: HEMATOCRIT 35.3 % (42.0-52.0); HEMOGLOBIN 11.3 g/dl (13.5-17.5)
[2020-10-08 04:00] VITALS: BP 123/56
[2020-10-08 05:29] LABS: BASO % 0.2 % (0.0-1.0); EOS # 0.1 10^3/uL (0.0-0.5); EOS % 0.5 % (0.0-3.0); HEMOGLOBIN 11.1 g/dl (13.5-17.5); LYMPH # 2.2 10^3/uL (1.5-5.0); MEAN CORPUSCULAR HEMOGLOBIN 31.4 pg (27.0-33.0); MEAN CORPUSCULAR HGB CONC 31.7 g/dl (32.0-36.5); MEAN CORPUSCULAR VOLUME 99.2 fl (80.0-96.0); MONO # 1.6 10^3/uL (0.0-0.8); MONO % 9.3 % (2.0-8.0); NEUTROPHILS # 12.9 10^3/uL (1.5-8.5); NEUTROPHILS % 75.8 % (36.0-66.0); PLATELET COUNT, AUTOMATED 205 10^3/uL (150-450); RED BLOOD COUNT 3.53 10^6/uL (4.30-6.10)
[2020-10-08] MEDS: PIPERACILLIN/TAZOBACTAM SOD 3.375 GM in D5W MINI-BAG PLUS 50 ML IV SCH ×3 (05:45→18:49)
[2020-10-08 05:50] LABS: C REACTIVE PROTEIN QUANTITATIV 10.1 MG/DL (0.00-0.30); CALCIUM LEVEL 8.2 MG/DL (8.8-10.2); CREATININE FOR GFR 1.52 MG/DL (0.70-1.30); GLOMERULAR FILTRATION RATE 46.9 (>35); POTASSIUM SERUM 4.1 MEQ/L (3.5-5.1)
--- NOTE | 2020-10-08 06:55 | ECHO ---
ECHOCARDIOGRAM DATE OF PROCEDURE: 10/07/2020 Age: Gender: M Height: 170 cm Weight: 91 kg REFERRING PHYSICIAN: INDICATION: Congestive heart failure MEASUREMENTS: IVS: 1.1 LV: 5.6 LVPW: 1.2 LA: 3.8 Aortic root: 4.3 Ascending aorta: 4.0 FINDINGS: This study is of poor technical quality with limited visualization. Underlying sinus rhythm with occasional ectopic beats. Left ventricle is borderline dilated. Mild left ventricular hypertrophy is noted. Overall preserved left ventricle (LV) systolic function with estimated ejection fraction (EF) around 60-65%. I do not appreciate any segmental wall motion abnormalities but they could have been easily missed due to limited nature of images. Right ventricle is poorly seen. Both atria appeared grossly normal. Aortic valve is sclerotic. I cannot comment much on its structure but based on limited views it is probably tricuspid. Mitral and tricuspid valves appear grossly normal. Pulmonic valve was not well seen. No pericardial effusion is noted. Inferior vena cava was not visualized. Aortic root and visualized segment of ascending aorta are dilated (4.3 and 4.0 cm respectively). Aortic arch was not visualized. Abdominal aorta was not seen. Inferior vena cava was not seen. Doppler interrogation of aortic valve reveals no significant stenosis (mean gradient only 6 mmHg) and very eccentric aortic insufficiency. I estimate approximately [id number] severity. There are competent mitral and tricuspid valves. Evaluation of diastolic function was incomplete because aortic insufficiency jet impedes mitral inflow pattern. CONCLUSIONS: 1. Study is fair to poor technical quality. Underlying sinus rhythm with occasional ectopic beats. 2. Borderline dilated left ventricle with mild left ventricular hypertrophy and overall preserved left ventricular (LV) systolic function. Unable to determine diastolic function. 3. Poorly visualized right ventricle but it does not appear grossly dilated. 4. Aortic sclerosis resulting in no significant stenosis and a [id number] eccentric aortic insufficiency. 5 Grossly competent mitral and tricuspid valves. 6. Unable to estimate central venous pressure and pulmonary artery pressure. 7. 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 MTDD
[2020-10-08 08:05] VITALS: BP 146/64
[2020-10-08] MEDS: DULoxetine 30 MG CAP (CYMBALTA) PO SCH ×2 (08:42→20:40)
[2020-10-08] MEDS: ATORVASTATIN 20 MG TAB PO SCH (08:42)
[2020-10-08] MEDS: BENAZEPRIL 20 MG TAB PO SCH (08:42)
[2020-10-08] MEDS: DOCUSATE SODIUM 100MG CAPSULE PO SCH ×2 (08:43→20:41)
[2020-10-08] MEDS: predniSONE 2.5 MG TAB PO SCH (08:45)
[2020-10-08] MEDS: TIMOLOL MALEATE 0.5% OPHTH SOLN 5 ML OU SCH ×2 (08:46→20:40)
--- NOTE | 2020-10-08 09:54 | IPNPDOC ---
Text Note Date of Service The patient was seen on 10/08/20. Subjective: Pt is a 85 year old male who was admitted for LLQ pain and ABD pain with hematochezia. When seen today patient says that his pain has decreased significantly from admission. On admission he says that his pain was a 6/10, now he says that it is a 3/10. Pt says that yesterday he was able to ambulate and the pain did not increase with movement. Patient says that hematochezia has decreased from yesterday and now there is just a tinge in his stool. Review of systems: Patient denies headaches, N/V, nuchal rigidity, chest pain, palpitations, urinary pain or frequency, numbness and tingling of his legs. Patient's ABD pain is confined to his LLQ and no longer radiates up to the LUQ. Physical exam: General: Pt was supine when seen by medical team. Patient is no acute distress. HEENT: AT, NC, EOMI, no scleral icterus, moist mucous membranes Heart: Normal S1 and S2. No extra heart sounds or murmurs Lung: BL equal and clear breath sounds. No wheezing, rhonchi, or stridor seen on exam. ABD: Bowel sounds are present. Numbness in the LLQ only on deep palpation Extremities: No pedal edema on exam. Hematological: +2/4 BL posterior tibial and pedal edema. Psych: Alert and oriented *4. Assessment: 85 year old male with past medical history of HTN, hyperlipidemia, DVT &PE, polymyalgia rheumatica, OA, chronic back pain, and BPH presenting with new onset abdominal pain and hematochezia concerning for infectious colitis based on CT imaging. Plan: # Abdominal pain - likely 2/2 colitis - Abdominal pain 3/10 today down from 6/10 yesterday, hematochezia improved - only a tinge of blood in stool, normotensive, afebrile, no lactic acidosis, and improving leukocytosis since admission. GI panel negative. - Blood culturesx2 are pending. CRP downtrending. - CT scan showed inflammation of the transverse and descending colon. - Continue holding Xarelto because of hematochezia. - Continue Zosyn (Day #3) - Case was initially discussed with surgery; will continue with medical management at this time # Acute blood loss - Hemoglobin appears to be stable - was 11.1 today. - Will trend H&H daily with CBC - Will hold Xarelto - Patient has been consented for blood transfusion if required # HTN - pt has been normotensive through hospital stay - Will hold Furosemide for now - c/w Benazapril # Elevated Creatinine # Hyperlipidemia - c/w Atorvastatin # Hx of LLE Superficial thrombophlebitis (2006) / Chronic LLE Wound - c/w wound care # R carotid artery stenosis - Continue with Atorvastatin # R-lung nodule - Patient has received a PET scan in the past - Patient follows with primary care for serial imaging # Polymyalgia Rheumatica - Follows with Rheumatology - c/w Prednisone based on outpatient dosing # Osteoarthritis - c/w Tylenol PRN # Vitamin D deficiency - Will continue with vitamin D supplementation on discharge # Central retinal vein occlusion (2010) # Chronic back pain / DDD / DJD - Follows pain clinic - c/w Duloxetine # BPH - c/w Finasteride / Tamsulosin # DVT / PE prophylaxis - Hold Xeralto because of hematochezia - Discussed risks and benefits with patient; has a verbalized understanding - c/w TEDSs/Sequentials CODE STATUS: FULL CODE Disposition: Pending clinical improvement VS,Fishbone, I+O VS, Fishbone, I+O Laboratory Tests 10/07/20 11:49 10/07/20 18:06 10/07/20 23:21 10/08/20 05:08 Vital Signs Date Time Temp Pulse Resp B/P (MAP) Pulse Ox O2 Delivery O2 Flow Rate FiO2 10/08/20 08:42 146/64 10/08/20 08:05 97.8 80 18 97 Room Air I&O- Last 24 Hours up to 6 AM 10/08/20 05:59 Intake Total 1960 ml Output Total 0 ml Balance 1960 ml GME ATTESTATION GME ATTESTATION My faculty preceptor for this patient encounter was physically present during the encounter and was fully available. All aspects of the patient interview, examination, medical decision making process, and medical care plan development were reviewed and approved by the faculty preceptor. The faculty preceptor is aware and concurs with the plan as stated in the body of this note and will attest to such by his/her cosignature. ATTENDING NOTE Attending Attestation: I personally performed the physical exam and medical decision making and discussed the management with the medical student. I reviewed the medical student's note and I hereby verify the history, physical exam, and medical decision-making documented by the medical student, the documented findings, and plan of care. FLORIN RAO OMS-3 Oct 08, 2020 09:53 ENEDINA GOMEZ MD Oct 09, 2020 06:19
[2020-10-08 16:00] VITALS: BP 133/60
[2020-10-08 20:00] VITALS: BP 145/63
[2020-10-09] VITALS: BP 142/65
[2020-10-09] MEDS: PIPERACILLIN/TAZOBACTAM SOD 3.375 GM in D5W MINI-BAG PLUS 50 ML IV SCH ×2 (00:09→05:48)
[2020-10-09 03:57] VITALS: BP 127/84
[2020-10-09 05:11] LABS: BASO # 0.1 10^3/uL (0.0-0.2); BASO % 0.4 % (0.0-1.0); EOS # 0.1 10^3/uL (0.0-0.5); EOS % 1.1 % (0.0-3.0); HEMATOCRIT 32.3 % (42.0-52.0); HEMOGLOBIN 10.4 g/dl (13.5-17.5); LYMPH # 2.1 10^3/uL (1.5-5.0); LYMPH % 17.3 % (24.0-44.0); MEAN CORPUSCULAR HEMOGLOBIN 31.5 pg (27.0-33.0); MEAN CORPUSCULAR HGB CONC 32.2 g/dl (32.0-36.5); MEAN CORPUSCULAR VOLUME 97.9 fl (80.0-96.0); MONO # 1.2 10^3/uL (0.0-0.8); MONO % 9.6 % (2.0-8.0); NEUTROPHILS # 8.8 10^3/uL (1.5-8.5); PLATELET COUNT, AUTOMATED 197 10^3/uL (150-450); WHITE BLOOD COUNT 12.3 10^3/uL (4.0-10.0)
[2020-10-09 05:30] LABS: C REACTIVE PROTEIN QUANTITATIV 5.39 MG/DL (0.00-0.30); CALCIUM LEVEL 8.1 MG/DL (8.8-10.2); CREATININE FOR GFR 1.35 MG/DL (0.70-1.30); GLOMERULAR FILTRATION RATE 53.7 (>35); POTASSIUM SERUM 3.8 MEQ/L (3.5-5.1)
[2020-10-09 08:40] VITALS: BP 117/55
[2020-10-09] MEDS: DOCUSATE SODIUM 100MG CAPSULE PO SCH ×2 (08:42→20:21)
[2020-10-09] MEDS: TIMOLOL MALEATE 0.5% OPHTH SOLN 5 ML OU SCH ×2 (09:14→20:20)
[2020-10-09] MEDS: BENAZEPRIL 20 MG TAB PO SCH (09:14)
[2020-10-09] MEDS: ATORVASTATIN 20 MG TAB PO SCH (09:14)
[2020-10-09] MEDS: DULoxetine 30 MG CAP (CYMBALTA) PO SCH ×2 (09:14→20:20)
[2020-10-09] MEDS: predniSONE 2.5 MG TAB PO SCH (09:15)
--- NOTE | 2020-10-09 11:41 | IPNPDOC ---
Text Note Date of Service The patient was seen on 10/09/20. NOTE Subjective: 85 yo male admitted for infectious colitis is seen today in follow- up. He states his abdominal pain is improved, his bowel movements no longer have any blood in them. Pt was admitted to the hospital for ABD pain and hematochezia. On exam today patient says that he is feeling great. He had a bowel movement with no blood present on his stool this morning. He says that his ABD pain is completely gone from before. He was able to ambulate last night with PT and had no ABD pain with movement. Review of systems: Pt denies headaches, N/V, chest pain, palpitations, SOB, dyspnea, ABD pain, urinary pain, numbness, and tingling. Physical exam: General: Pt was seen sitting in his side chair by the bed. Pt was in no acute distress and afebrile. HEENT: NC, AT, EOMI, no scleral icterus, Moist mucous membranes Heart: Normal S1 and S2. No extra heart sounds or murmurs. Lungs: BL clear and equal breath sounds ABD: No ABD pain on exam. No pain on deep palpation. Bowel sounds present. Extremities: Trace/1+ pitting edema present BL. Hematologic: +2/4 Pulses posterior tibial and pedal. Psych: Alert and oriented*4. Assessment: 85 year old male with past medical history of HTN, hyperlipidemia, DVT &PE, polymyalgia rheumatica, OA, chronic back pain, and BPH presenting with new onset abdominal pain and hematochezia concerning for infectious colitis based on CT imaging. Plan: # Abdominal pain - likely 2/2 colitis - Abdominal pain 0/10 today down from 3/10 yesterday, hematochezia gone - Pt says there is no blood in his stool. Pt is normotensive, afebrile, no lactic acidosis, and improving leukocytosis since admission. GI panel negative. - Blood culturesx2 are negative at 48hrs. CRP downtrending. - CT scan showed inflammation of the transverse and descending colon. - Continue holding Xarelto because of hematochezia. - Patient will be switched to Augmentin PO today. - Advance his diet starting today. - Case was initially discussed with surgery; will continue with medical management at this time # Acute blood loss - Hemoglobin appears to be decreasing throughout his entire stay after being mostly stable yesterday - was 10.4 today. - Will look at Hb again carlton morning, and decide if inpatient colonoscopy is necessary to look for GI bleed. - Will hold Xarelto because of bleeding risk. - Patient has been consented for blood transfusion if required. # HTN - pt has been normotensive through hospital stay - Will hold Furosemide for now - c/w Benazapril # Elevated Creatinine - These are at the patient's baseline levels. # Hyperlipidemia - c/w Atorvastatin # Hx of LLE Superficial thrombophlebitis (2006) / Chronic LLE Wound - c/w wound care # R carotid artery stenosis - Continue with Atorvastatin # R-lung nodule - Patient has received a PET scan in the past - Patient follows with primary care for serial imaging # Polymyalgia Rheumatica - Follows with Rheumatology - c/w Prednisone based on outpatient dosing # Osteoarthritis - c/w Tylenol PRN # Vitamin D deficiency - Will continue with vitamin D supplementation on discharge # Central retinal vein occlusion (2010) # Chronic back pain / DDD / DJD - Follows pain clinic - c/w Duloxetine # BPH - c/w Finasteride / Tamsulosin # DVT / PE prophylaxis - Hold Xeralto because of hematochezia - Discussed risks and benefits with patient; has a verbalized understanding - c/w TEDSs/Sequentials VS,Fishbone, I+O VS, Fishbone, I+O Laboratory Tests 10/09/20 04:56 Vital Signs Date Time Temp Pulse Resp B/P (MAP) Pulse Ox O2 Delivery O2 Flow Rate FiO2 10/09/20 09:14 117/55 10/09/20 08:40 98.5 76 18 97 Room Air I&O- Last 24 Hours up to 6 AM 10/09/20 05:59 Intake Total 1670 ml Output Total 300 ml Balance 1370 ml GME ATTESTATION GME ATTESTATION My faculty preceptor for this patient encounter was physically present during the encounter and was fully available. All aspects of the patient interview, examination, medical decision making process, and medical care plan development were reviewed and approved by the faculty preceptor. The faculty preceptor is aware and concurs with the plan as stated in the body of this note and will attest to such by his/her cosignature. ATTENDING NOTE Attending Attestation: I personally performed the physical exam and medical decision making and discussed the management with the medical student. I reviewed the medical student's note and I hereby verify the history, physical exam, and medical decision-making documented by the medical student, the documented findings, and plan of care. FLORIN RAO OMS-3 Oct 09, 2020 11:41 JASMYNE MCKNIGHT DO Oct 09, 2020 17:21 ENEDINA GOMEZ MD Oct 10, 2020 06:34
[2020-10-09] MEDS: AUGMENTIN 875 MG TAB PO SCH ×2 (11:51→20:20)
[2020-10-09 16:00] VITALS: BP 131/60
[2020-10-09 20:00] VITALS: BP 139/63
[2020-10-10 04:00] VITALS: BP 130/58
[2020-10-10 05:31] LABS: BASO # 0.1 10^3/uL (0.0-0.2); BASO % 0.6 % (0.0-1.0); EOS # 0.1 10^3/uL (0.0-0.5); EOS % 1.3 % (0.0-3.0); HEMOGLOBIN 10.3 g/dl (13.5-17.5); LYMPH # 2.1 10^3/uL (1.5-5.0); LYMPH % 21.6 % (24.0-44.0); MEAN CORPUSCULAR HEMOGLOBIN 31.5 pg (27.0-33.0); MEAN CORPUSCULAR HGB CONC 32.2 g/dl (32.0-36.5); MEAN CORPUSCULAR VOLUME 97.9 fl (80.0-96.0); MONO # 1.1 10^3/uL (0.0-0.8); MONO % 11.8 % (2.0-8.0); NEUTROPHILS # 6.1 10^3/uL (1.5-8.5); NEUTROPHILS % 63.4 % (36.0-66.0); PLATELET COUNT, AUTOMATED 209 10^3/uL (150-450); RED BLOOD COUNT 3.27 10^6/uL (4.30-6.10); WHITE BLOOD COUNT 9.6 10^3/uL (4.0-10.0)
[2020-10-10 05:58] LABS: C REACTIVE PROTEIN QUANTITATIV 2.27 MG/DL (0.00-0.30); CALCIUM LEVEL 8.2 MG/DL (8.8-10.2); CREATININE FOR GFR 1.27 MG/DL (0.70-1.30); GLOMERULAR FILTRATION RATE 57.7 (>35); MAGNESIUM LEVEL 2.1 MG/DL (1.8-2.4); POTASSIUM SERUM 4.1 MEQ/L (3.5-5.1)
[2020-10-10 08:00] VITALS: BP 156/66
[2020-10-10 08:11] VITALS: BP 156/66
[2020-10-10] MEDS: AUGMENTIN 875 MG TAB PO SCH (08:11)
[2020-10-10] MEDS: BENAZEPRIL 20 MG TAB PO SCH (08:11)
[2020-10-10] MEDS: DULoxetine 30 MG CAP (CYMBALTA) PO SCH (08:11)
[2020-10-10] MEDS: ATORVASTATIN 20 MG TAB PO SCH (08:12)
[2020-10-10] MEDS: DOCUSATE SODIUM 100MG CAPSULE PO SCH (08:12)
--- NOTE | 2020-10-10 08:28 | DS.PDOC ---
Discharge Summary General Date of Admission Oct 06, 2020 at 18:18 Date of Discharge 10/10/20 Primary Care Physician: Rolf Soria MD Attending Physician: ENEDINA GOMEZ MD Discharge Summary PROCEDURES PERFORMED DURING STAY: Transthoracic echocardiogram: "CONCLUSIONS: 1. Study is fair to poor technical quality. Underlying sinus rhythm with occasional ectopic beats. 2. Borderline dilated left ventricle with mild left ventricular hypertrophy and overall preserved left ventricular (LV) systolic function. Unable to determine diastolic function. 3. Poorly visualized right ventricle but it does not appear grossly dilated. 4. Aortic sclerosis resulting in no significant stenosis and a [id number] eccentric aortic insufficiency. 5. Grossly competent mitral and tricuspid valves. 6. Unable to estimate central venous pressure and pulmonary artery pressure. 7. 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 " ADMITTING/DISCHARGE DIAGNOSES: 1. Inflammatory colitis 2. HTN 3. Hyperlipidemia 4. Recurrent DVT & PE 5. OA 6. chronic back pain 7. BPH 8. Polymyalgia rheumatica 9. R-lung nodule 10. R-carotid artery stenosis 11. Vitamin D Deficiency COMPLICATIONS/CHIEF COMPLAINT: abdominal pain, blood in stool HISTORY OF PRESENT ILLNESS: "Patient is an 85-year-old male who presented to the emergency room with compressive abdominal pain and blood in his stool for the last 2 days. Patient has reported that yesterday he went and ordered a Fish (Laisha) sandwich. After eating his meal he reported abdominal pain described the pain occurring in his left lower abdomen, 6/10 continuous, worse with positioning, alleviated by rest. Patient reported that he had a bowel movement that was essentially all blood. Patient reports that he went to bed, still experiencing abdominal pain when he woke up in the morning he had another bowel movement that was essentially all blood. Patient has not expressed any further bloody bowel movements throughout the day. Patient had another bowel movement in the ER, however, he reports that there is no blood in the stool at this time. Patient denies any nausea or vomiting. Has not experience any chest pain, shortness of breath or change in his baseline cough. She denies any urinary discomfort. Patient reports chills and subjective fevers. Patient repor ts that currently his appetite is poor." HOSPITAL COURSE: Patient was found to have an elevated WBC count, CRP, down trending Hgb, and had a CT abd/pelvis that showed inflammatory colitis in his transverse and descending colon. Surgery was contacted and advised medical management. Pt was started on Zosyn for inflammatory colitis. A GI panel and blood cultures were ordered and came back negative. Patient's abdominal pain, hematochezia, WBC count, and CRP all decreased throughout his hospital stay. His diet was slowly advanced and by 10/09/20 he was tolerating solid foods well. At that point he was switched from IV Zosyn to PO Augmentin. Discharge was delayed to ensure no further drops in hemoglobin and by 10/10 his hgb had stabilized. He was discharged home with a script to repeat a CBC early next week and instructions to restart his xarelto for his DVT/PE's but to return to the hospital in the event he experienced any recurrence of blood in his stool, lightheadedness, dizziness, worsening abdominal pain, or any concern that his symptoms had recurred or worsened. *I am unclear why the echo was ordered, I saw no signs of fluid overload during his stay DISCHARGE MEDICATIONS: Please see below. ALLERGIES: Please see below. PHYSICAL EXAMINATION ON DISCHARGE: General: Pt was sitting in a chair near his bed when seen. Pt was in no acute distress. HEENT: NC, AT, EOMI, no scleral icterus, moist membranes Neck: No enlargement of thyroid or lymph nodes. Heart: S1 and S2 present. No extra heart sounds or murmurs. Lungs: BL clear and equal breath sounds. No wheezing, stridor, or crackles. ABD: Bowel sounds present. No tenderness on superficial or deep palpation. Extremities: No edema seen on exam. Neuro: No weakness or loss of sensation Psych: Alert and oriented*4 LABORATORY DATA: Please see below. New IMAGING: None PROGNOSIS: Good ACTIVITY: As tolerated. DIET: Low-fat because of hyperlipidemia DISCHARGE PLAN: 1. Pt should continue Augmentin for 6 days. 2. Pt will restart Xarelto and can continue taking the rest of his medications on discharge. DISPOSITION: Discharged home. DISCHARGE INSTRUCTIONS: 1. Please return to hospital if symptoms reccur or worsen 2. Please repeat CBC in the next 3-5 days and review results with your PCP 3. Please follow up with PCP in the next 7 days. DISCHARGE CONDITION: Stable. TIME SPENT ON DISCHARGE: 33 minutes. Vital Signs/I&Os Vital Signs Date Time Temp Pulse Resp B/P (MAP) Pulse Ox O2 Delivery O2 Flow Rate FiO2 10/10/20 08:11 156/66 10/10/20 08:00 98.7 72 16 97 Room Air I&O- Last 24 Hours up to 6 AM 10/10/20 06:00 Intake Total 1280 ml Output Total 900 ml Balance 380 ml Laboratory Data Labs 24H Laboratory Tests 2 10/10/20 05:05: Immature Granulocyte % (Auto) 1.3, Neutrophils (%) (Auto) 63.4, Lymphocytes (%) (Auto) 21.6L, Monocytes (%) (Auto) 11.8H, Eosinophils (%) (Auto) 1.3, Basophils (%) (Auto) 0.6, Neutrophils # (Auto) 6.1, Lymphocytes # (Auto) 2.1, Monocytes # (Auto) 1.1H, Eosinophils # (Auto) 0.1, Basophils # (Auto) 0.1, Nucleated Red Blood Cells % (auto) 0.0, Anion Gap 5L, Glomerular Filtration Rate 57.7, Calcium Level 8.2L, Magnesium Level 2.1, C-Reactive Protein, Quantitative 2.27H CBC/BMP Laboratory Tests 10/10/20 05:05 Microbiology Microbiology 10/06/20 Blood Culture - Preliminary, Resulted No Growth after 72 hours. All specime... 10/06/20 Blood Culture - Preliminary, Resulted No Growth after 72 hours. All specime... 10/06/20 Gastrointestinal Tract Panel (PCR) - Final, Complete Discharge Medications Scheduled Amoxicillin/Potassium Clav (Amox-Clav 875-125 mg Tablet) 1 Each Tablet, 875 MG PO BID Atorvastatin Calcium (Lipitor) 20 Mg Tab, 20 MG PO DAILY, (Reported) Benazepril HCl (Benazepril HCl) 20 Mg Tablet, 20 MG PO DAILY, (Reported) Duloxetine Hcl (Duloxetine HCl) 30 Mg Capsule.dr, 30 MG PO BID, (Reported) Furosemide (Furosemide) 20 Mg Tablet, 20 MG PO DAILY, (Reported) Prednisone (Prednisone) 2.5 Mg Tablet, 7.5 MG PO DAILY, (Reported) Rivaroxaban (Xarelto) 10 Mg Tablet, 10 MG PO QHS, (Reported) Timolol Maleate (Timolol Maleate) 0.5% 5ML Drops, 1 DROP OU BID, (Reported) Allergies Coded Allergies: No Known Allergies (Unverified , 08/16/19) GME ATTESTATION GME ATTESTATION My faculty preceptor for this patient encounter was physically present during the encounter and was fully available. All aspects of the patient interview, examination, medical decision making process, and medical care plan development were reviewed and approved by the faculty preceptor. The faculty preceptor is aware and concurs with the plan as stated in the body of this note and will attest to such by his/her cosignature. ATTENDING NOTE I personally performed the physical exam and medical decision making and di scussed the management with the medical student. I reviewed the medical student's note and I hereby verify the history, physical exam, and medical decision-making documented by the medical student, the documented findings, and plan of care. FLORIN RAO OMS-3 Oct 10, 2020 08:28 JASMYNE MCKNIGHT DO Oct 10, 2020 17:25 ENEDINA GOMEZ MD Oct 11, 2020 08:30
[2020-10-10] MEDS: TIMOLOL MALEATE 0.5% OPHTH SOLN 5 ML OU SCH (09:04)
[2020-10-10] MEDS: predniSONE 2.5 MG TAB PO SCH (09:07)
[2020-10-10] MEDS ORDERED: AMOX875T2 PO (10:45)
== END 2020-10-10 11:31 | disposition home or self-care (01) | DRG 392 ==
LOC: M ED 14:37 → M ED INP 18:18 → ENRESERVTM 19:49 → ENRESERVDT 19:49 → M PCU 22:12
PROVIDERS: ADMIT Internal Medicine; ATTEND Internal Medicine
DX: K52.9 Noninfective gastroenteritis and colitis, unspecified (principal); I10 Essential (primary) hypertension; E78.5 Hyperlipidemia, unspecified; Z86.711 Personal history of pulmonary embolism; Z86.718 Personal history of other venous thrombosis and embolism; I77.1 Stricture of artery; R91.8 Other nonspecific abnormal finding of lung field; M35.3 Polymyalgia rheumatica; E55.9 Vitamin D deficiency, unspecified; M54.9 Dorsalgia, unspecified; N40.0 Benign prostatic hyperplasia without lower urinary tract symptoms; Z96.651 Presence of right artificial knee joint; M19.90 Unspecified osteoarthritis, unspecified site; Z20.822 Contact with and (suspected) exposure to COVID-19; Z79.899 Other long term (current) drug therapy; R79.89 Other specified abnormal findings of blood chemistry

== ENCOUNTER → 2020-10-15 | Outpatient (REF) | payer MEDICARE, OTHER ==
[~2020-10-15] MED LIST changes: +AMOX875T2 PO; +PRED25TA PO
[2020-10-15 12:24] LABS: HEMOGLOBIN 12.2 g/dl (13.5-17.5); MEAN CORPUSCULAR HGB CONC 32.1 g/dl (32.0-36.5); MEAN CORPUSCULAR VOLUME 99.7 fl (80.0-96.0); PLATELET COUNT, AUTOMATED 328 10^3/uL (150-450); RED BLOOD COUNT 3.81 10^6/uL (4.30-6.10); WHITE BLOOD COUNT 10.3 10^3/uL (4.0-10.0)
== END ==
LOC: M LABDRAWC 11:24
PROVIDERS: ATTEND Family Medicine
DX: A09 Infectious gastroenteritis and colitis, unspecified (principal)

== ENCOUNTER → 2020-12-17 | Outpatient (REF) | payer MEDICARE, OTHER ==
[2020-12-17 12:20] LABS: BASO # 0.1 10^3/uL (0.0-0.2); BASO % 0.7 % (0.0-1.0); EOS # 0.1 10^3/uL (0.0-0.5); HEMATOCRIT 39.8 % (42.0-52.0); HEMOGLOBIN 12.5 g/dl (13.5-17.5); LYMPH % 17.3 % (24.0-44.0); MEAN CORPUSCULAR HEMOGLOBIN 30.7 pg (27.0-33.0); MEAN CORPUSCULAR HGB CONC 31.4 g/dl (32.0-36.5); MEAN CORPUSCULAR VOLUME 97.8 fl (80.0-96.0); MONO % 8.2 % (2.0-8.0); NEUTROPHILS # 8.4 10^3/uL (1.5-8.5); NEUTROPHILS % 72.1 % (36.0-66.0); PLATELET COUNT, AUTOMATED 249 10^3/uL (150-450); RED BLOOD COUNT 4.07 10^6/uL (4.30-6.10); WHITE BLOOD COUNT 11.7 10^3/uL (4.0-10.0)
[2020-12-17 13:56] LABS: BILIRUBIN,TOTAL 0.5 MG/DL (0.2-1.0); C REACTIVE PROTEIN QUANTITATIV 0.3 MG/DL (0.00-0.30); CALCIUM LEVEL 8.9 MG/DL (8.8-10.2); CHOLESTEROL RISK RATIO 2.218 (<5); CREATININE FOR GFR 1.35 MG/DL (0.70-1.30); FREE T4 0.99 NG/DL (0.76-1.46); GLOMERULAR FILTRATION RATE 53.7 (>35); POTASSIUM SERUM 4.6 MEQ/L (3.5-5.1); THYROID STIMULATING HORMONE 2.3 uIU/ML (0.358-3.740); TOTAL PROTEIN 5.4 GM/DL (6.4-8.2)
[2020-12-17 19:46] LABS: HEMOGLOBIN A1c 5.4 %
== END ==
LOC: M SFHCADAM 08:47
PROVIDERS: ATTEND Family Medicine
DX: R61 Generalized hyperhidrosis (principal); N18.30 Chronic kidney disease, stage 3 unspecified; D63.1 Anemia in chronic kidney disease; M35.3 Polymyalgia rheumatica; E78.5 Hyperlipidemia, unspecified; Z79.52 Long term (current) use of systemic steroids; Z79.899 Other long term (current) drug therapy

== ENCOUNTER → 2020-12-17 | Outpatient (CLI) | payer MEDICARE, OTHER ==
--- NOTE | 2020-12-17 10:41 | REP ---
INDICATION: NIGHT SWEATS. COMPARISON: No 03/27/2013 ne. TECHNIQUE: Two views of the chest were obtained. FINDINGS: No acute parenchymal opacification or effusion is evident. The heart is at the upper limits of normal in size but without evidence of AA. Calcification is noted the aortic knob. Moderate degenerative changes are present throughout the visualized thoracic spine. IMPRESSION: No acute or interval change is identified. <Electronically signed by Prabhakar De > 12/17/20 [id number]
== END ==
LOC: M ADAMS 09:16
PROVIDERS: ATTEND Family Medicine
DX: R61 Generalized hyperhidrosis (principal); N18.30 Chronic kidney disease, stage 3 unspecified; D63.1 Anemia in chronic kidney disease; M35.3 Polymyalgia rheumatica; E78.5 Hyperlipidemia, unspecified; Z79.52 Long term (current) use of systemic steroids; Z79.899 Other long term (current) drug therapy
CPT/HCPCS: 71046; 80053; 80061; 83036; 84439; 84443; 85025; 86140; 86480; G0463

== ENCOUNTER → 2021-06-03 | Outpatient (REF) | payer MEDICARE, OTHER ==
[~2021-06-03] MED LIST changes: +BENA-8 PO; -BENA20TA8 PO
[2021-06-03 11:35] LABS: BASO # 0.1 10^3/uL (0.0-0.2); BASO % 0.9 % (0.0-1.0); EOS # 0.2 10^3/uL (0.0-0.5); EOS % 2.1 % (0.0-3.0); HEMATOCRIT 38.1 % (42.0-52.0); LYMPH # 2.8 10^3/uL (1.5-5.0); LYMPH % 33.7 % (24.0-44.0); MEAN CORPUSCULAR HEMOGLOBIN 31.2 pg (27.0-33.0); MEAN CORPUSCULAR HGB CONC 31.5 g/dl (32.0-36.5); MONO # 1.2 10^3/uL (0.0-0.8); NEUTROPHILS % 48.7 % (36.0-66.0); PLATELET COUNT, AUTOMATED 237 10^3/uL (150-450); RED BLOOD COUNT 3.85 10^6/uL (4.30-6.10); WHITE BLOOD COUNT 8.2 10^3/uL (4.0-10.0)
[2021-06-03 12:01] LABS: ERYTHROCYTE SEDIMENTATION RATE 8 mm/hr (0-20)
[2021-06-03 12:09] LABS: ALBUMIN 3.3 GM/DL (3.2-5.2); BILIRUBIN,DIRECT 0.2 MG/DL (0.0-0.2); BILIRUBIN,TOTAL 0.6 MG/DL (0.2-1.0); C REACTIVE PROTEIN QUANTITATIV 0.3 MG/DL (0.00-0.30); CALCIUM LEVEL 9.3 MG/DL (8.8-10.2); CREATININE FOR GFR 1.24 MG/DL (0.70-1.30); GLOMERULAR FILTRATION RATE 59.1 (>35); TOTAL PROTEIN 5.4 GM/DL (6.4-8.2)
[2021-06-03 12:19] LABS: TOTAL 25(OH) VITAMIN D 23.1 NG/ML (30.0-100.0)
== END ==
LOC: M SFHCRHEU 06:58
PROVIDERS: ATTEND Internal Medicine
DX: M06.00 Rheumatoid arthritis without rheumatoid factor, unspecified site (principal); E55.9 Vitamin D deficiency, unspecified

== ENCOUNTER → 2021-12-04 | Outpatient (REF) | payer MEDICARE, OTHER ==
[2021-12-04 12:33] LABS: HEMATOCRIT 39.9 % (42.0-52.0); HEMOGLOBIN 12.4 g/dl (13.5-17.5); MEAN CORPUSCULAR HEMOGLOBIN 30.9 pg (27.0-33.0); MEAN CORPUSCULAR HGB CONC 31.1 g/dl (32.0-36.5); MEAN CORPUSCULAR VOLUME 99.5 fl (80.0-96.0); PLATELET COUNT, AUTOMATED 221 10^3/uL (150-450); RED BLOOD COUNT 4.01 10^6/uL (4.30-6.10); WHITE BLOOD COUNT 6.3 10^3/uL (4.0-10.0)
[2021-12-04 12:46] LABS: HEMOGLOBIN A1c 5.3 %
[2021-12-04 13:06] LABS: BILIRUBIN,TOTAL 0.5 MG/DL (0.2-1.0); CHOLESTEROL RISK RATIO 2.653 (<5); CREATININE FOR GFR 1.63 MG/DL (0.70-1.30); GLOMERULAR FILTRATION RATE 43.1 (>35); TOTAL PROTEIN 5.3 GM/DL (6.4-8.2)
[2021-12-04 13:07] LABS: FREE T4 0.95 NG/DL (0.76-1.46); THYROID STIMULATING HORMONE 2.24 uIU/ML (0.358-3.740)
== END ==
LOC: M SFHCCLAY 06:56
PROVIDERS: ATTEND Family Medicine
DX: E78.5 Hyperlipidemia, unspecified (principal); D63.1 Anemia in chronic kidney disease; Z13.1 Encounter for screening for diabetes mellitus; N18.31 Chronic kidney disease, stage 3a

== ENCOUNTER → 2022-07-15 | Outpatient (REF) ==
[~2022-07-15] MED LIST changes: +TIMO0.5S20 OU; -TIMO0.5S29 OU
[2022-07-15 11:21] LABS: HEMATOCRIT 28.9 % (42.0-52.0); HEMOGLOBIN 9.2 g/dl (13.5-17.5); MEAN CORPUSCULAR HEMOGLOBIN 30.2 pg (27.0-33.0); MEAN CORPUSCULAR HGB CONC 31.8 g/dl (32.0-36.5); MEAN CORPUSCULAR VOLUME 94.8 fl (80.0-96.0); PLATELET COUNT, AUTOMATED 344 10^3/uL (150-450); RED BLOOD COUNT 3.05 10^6/uL (4.30-6.10); WHITE BLOOD COUNT 8.8 10^3/uL (4.0-10.0)
[2022-07-15 11:43] LABS: CALCIUM LEVEL 7.7 MG/DL (8.3-10.6); CREATININE FOR GFR 2.31 MG/DL (0.70-1.30); GLOMERULAR FILTRATION RATE 28.8 (>35); POTASSIUM SERUM 4.1 MMOL/L (3.5-5.1)
== END ==
PROVIDERS: ATTEND Physician Assistant
DX: I10 Essential (primary) hypertension (principal)

== ENCOUNTER → 2022-07-21 | Outpatient (REF) ==
[2022-07-21 15:08] LABS: CALCIUM LEVEL 8.4 MG/DL (8.3-10.6); CREATININE FOR GFR 1.65 MG/DL (0.70-1.30); GLOMERULAR FILTRATION RATE 42.4 (>35); POTASSIUM SERUM 4.6 MMOL/L (3.5-5.1)
== END ==
PROVIDERS: ATTEND Internal Medicine
DX: N17.9 Acute kidney failure, unspecified (principal)

== ENCOUNTER → 2022-07-22 | Outpatient (REF) ==
[2022-07-22 11:50] LABS: HEMATOCRIT 30.9 % (42.0-52.0); HEMOGLOBIN 9.6 g/dl (13.5-17.5); MEAN CORPUSCULAR HEMOGLOBIN 29.7 pg (27.0-33.0); MEAN CORPUSCULAR HGB CONC 31.1 g/dl (32.0-36.5); MEAN CORPUSCULAR VOLUME 95.7 fl (80.0-96.0); PLATELET COUNT, AUTOMATED 339 10^3/uL (150-450); RED BLOOD COUNT 3.23 10^6/uL (4.30-6.10); WHITE BLOOD COUNT 7.4 10^3/uL (4.0-10.0)
[2022-07-22 12:11] LABS: CALCIUM LEVEL 8.5 MG/DL (8.3-10.6); CREATININE FOR GFR 1.93 MG/DL (0.70-1.30); GLOMERULAR FILTRATION RATE 35.4 (>35); POTASSIUM SERUM 4.7 MMOL/L (3.5-5.1)
== END ==
PROVIDERS: ATTEND Physician Assistant
DX: I10 Essential (primary) hypertension (principal)

== ENCOUNTER → 2022-07-29 | Outpatient (REF) ==
[2022-07-29 09:35] LABS: HEMATOCRIT 34.3 % (42.0-52.0); HEMOGLOBIN 10.6 g/dl (13.5-17.5); MEAN CORPUSCULAR HGB CONC 30.9 g/dl (32.0-36.5); MEAN CORPUSCULAR VOLUME 97.2 fl (80.0-96.0); PLATELET COUNT, AUTOMATED 418 10^3/uL (150-450); RED BLOOD COUNT 3.53 10^6/uL (4.30-6.10); WHITE BLOOD COUNT 10.8 10^3/uL (4.0-10.0)
[2022-07-29 09:55] LABS: C REACTIVE PROTEIN QUANTITATIV 0.7 MG/DL (<1.0); CALCIUM LEVEL 9.1 MG/DL (8.3-10.6); CREATININE FOR GFR 1.56 MG/DL (0.70-1.30); GLOMERULAR FILTRATION RATE 45.3 (>35); POTASSIUM SERUM 4.5 MMOL/L (3.5-5.1)
[2022-07-29 09:59] LABS: ERYTHROCYTE SEDIMENTATION RATE 37 mm/hr (0-20)
== END ==
PROVIDERS: ATTEND Physician Assistant
DX: M35.3 Polymyalgia rheumatica (principal)

== ENCOUNTER → 2022-08-03 | Outpatient (REF) ==
[2022-08-03 09:35] LABS: HEMATOCRIT 28.1 % (42.0-52.0); HEMOGLOBIN 8.7 g/dl (13.5-17.5); MEAN CORPUSCULAR HEMOGLOBIN 29.6 pg (27.0-33.0); MEAN CORPUSCULAR VOLUME 95.6 fl (80.0-96.0); PLATELET COUNT, AUTOMATED 269 10^3/uL (150-450); RED BLOOD COUNT 2.94 10^6/uL (4.30-6.10); WHITE BLOOD COUNT 9.7 10^3/uL (4.0-10.0)
[2022-08-03 09:50] LABS: ERYTHROCYTE SEDIMENTATION RATE 32 mm/hr (0-20)
[2022-08-03 10:14] LABS: CALCIUM LEVEL 7.9 MG/DL (8.3-10.6); CREATININE FOR GFR 1.49 MG/DL (0.70-1.30); GLOMERULAR FILTRATION RATE 47.7 (>35); POTASSIUM SERUM 4.4 MMOL/L (3.5-5.1)
[2022-08-03 10:20] LABS: C REACTIVE PROTEIN QUANTITATIV 5.4 MG/DL (<1.0)
== END ==
PROVIDERS: ATTEND Physician Assistant
DX: M35.3 Polymyalgia rheumatica (principal)

== ENCOUNTER → 2022-08-10 | Outpatient (REF) ==
[2022-08-10 09:17] LABS: HEMATOCRIT 28.7 % (42.0-52.0); MEAN CORPUSCULAR HEMOGLOBIN 29.9 pg (27.0-33.0); MEAN CORPUSCULAR HGB CONC 31.4 g/dl (32.0-36.5); MEAN CORPUSCULAR VOLUME 95.3 fl (80.0-96.0); PLATELET COUNT, AUTOMATED 243 10^3/uL (150-450); RED BLOOD COUNT 3.01 10^6/uL (4.30-6.10); WHITE BLOOD COUNT 7.1 10^3/uL (4.0-10.0)
[2022-08-10 09:30] LABS: CALCIUM LEVEL 7.9 MG/DL (8.3-10.6); CREATININE FOR GFR 1.32 MG/DL (0.70-1.30); GLOMERULAR FILTRATION RATE 54.9 (>35); POTASSIUM SERUM 4.1 MMOL/L (3.5-5.1)
[2022-08-10 09:32] LABS: ERYTHROCYTE SEDIMENTATION RATE 25 mm/hr (0-20)
== END ==
PROVIDERS: ATTEND Physician Assistant
DX: I48.91 Unspecified atrial fibrillation (principal)

== ENCOUNTER → 2022-09-04 | Outpatient (REF) | payer MEDICARE, OTHER ==
[~2022-09-04] MED LIST changes: +FINA-48 PO; -PROS5TAB PO
[2022-09-04 16:36] LABS: HEMATOCRIT 33.8 % (42.0-52.0); HEMOGLOBIN 10.6 g/dl (13.5-17.5); IRON (FE) 38 UG/DL (65-175); MEAN CORPUSCULAR HEMOGLOBIN 29.9 pg (27.0-33.0); MEAN CORPUSCULAR HGB CONC 31.4 g/dl (32.0-36.5); MEAN CORPUSCULAR VOLUME 95.2 fl (80.0-96.0); PERCENT SATURATION 16.2 % (19.7-50.0); PLATELET COUNT, AUTOMATED 389 10^3/uL (150-450); RED BLOOD COUNT 3.55 10^6/uL (4.30-6.10); TOTAL IRON BINDING CAPACITY 234 UG/DL (250-425); WHITE BLOOD COUNT 8.4 10^3/uL (4.0-10.0)
[2022-09-04 16:37] LABS: ALKALINE PHOSPHATASE 74 U/L (46-116); ALT/SGPT < 9 U/L (7.0-40); AST/SGOT 17 U/L (<34); BILIRUBIN,TOTAL 0.9 MG/DL (0.3-1.2); BLOOD UREA NITROGEN 15 MG/DL (9-23); CALCIUM LEVEL 9.7 MG/DL (8.3-10.6); CARBON DIOXIDE LEVEL 23 MMOL/L (20-31); CHLORIDE LEVEL 107 MMOL/L (98-107); CREATININE FOR GFR 1.34 MG/DL (0.70-1.30); GLOMERULAR FILTRATION RATE 53.9 (>35); GLUCOSE, FASTING 91 MG/DL (74-106); POTASSIUM SERUM 5.5 MMOL/L (3.5-5.1); SODIUM LEVEL 138 MMOL/L (136-145); TOTAL PROTEIN 5.4 G/DL (5.7-8.2)
[2022-09-04 16:38] LABS: FERRITIN 40.1 NG/ML (10.5-307.3); FOLATE 8.32 NG/ML (>5.4); FREE T4 0.98 NG/DL (0.89-1.76); THYROID STIMULATING HORMONE 2.528 uIU/ML (0.55-4.78)
[2022-09-04 16:39] LABS: VITAMIN B12 LEVEL 384 PG/ML (211-911)
== END ==
LOC: M SFHCADAM 13:57
PROVIDERS: ATTEND Family Medicine
DX: M35.3 Polymyalgia rheumatica (principal); D63.1 Anemia in chronic kidney disease; Z79.52 Long term (current) use of systemic steroids; N18.32 Chronic kidney disease, stage 3b; I13.10 Hypertensive heart and chronic kidney disease without heart failure, with stage 1 through stage 4 chronic kidney disease, or unspecified chronic kidney disease; Z79.899 Other long term (current) drug therapy

== ENCOUNTER 2022-09-21 11:43 | Emergency (ER) | payer MEDICARE, OTHER ==
[~2022-09-21] VITALS: Ht 172.7 cm; Wt 81.9 kg
[~2022-09-21 11:43] MED LIST changes: -COLA100C5 PO; -FERR324T12 PO; -ISTA0.5S OP; -MELA3TAB49 PO; -MILKSUS3 PO; -MIRA3350 PO
[2022-09-21] MEDS ORDERED: MELA3TAB49 PO (12:11)
[2022-09-21] MEDS ORDERED: FERR324T12 PO (12:11)
[2022-09-21] MEDS ORDERED: ISTA0.5S OP (12:11)
[2022-09-21] MEDS ORDERED: LIPI20TA PO (12:11)
[2022-09-21] MEDS ORDERED: MILKSUS3 PO (12:11)
[2022-09-21] MEDS ORDERED: MIRA3350 PO ×2 (12:11→20:15)
[2022-09-21] MEDS ORDERED: COLA100C5 PO (12:11)
[2022-09-21] MEDS ORDERED: XARE20TA PO (12:11)
[2022-09-21 14:34] LABS: BASO # 0.1 10^3/uL (0.0-0.2); BASO % 1.2 % (0.0-1.0); EOS # 0.7 10^3/uL (0.0-0.5); EOS % 7.1 % (0.0-3.0); HEMATOCRIT 34.4 % (42.0-52.0); HEMOGLOBIN 11.2 g/dl (13.5-17.5); LYMPH # 3.4 10^3/uL (1.5-5.0); LYMPH % 36.5 % (24.0-44.0); MEAN CORPUSCULAR HEMOGLOBIN 29.7 pg (27.0-33.0); MEAN CORPUSCULAR HGB CONC 32.6 g/dl (32.0-36.5); MEAN CORPUSCULAR VOLUME 91.2 fl (80.0-96.0); MONO # 1.1 10^3/uL (0.0-0.8); MONO % 11.7 % (2.0-8.0); NEUTROPHILS % 43.3 % (36.0-66.0); PLATELET COUNT, AUTOMATED 345 10^3/uL (150-450); RED BLOOD COUNT 3.77 10^6/uL (4.30-6.10); WHITE BLOOD COUNT 9.2 10^3/uL (4.0-10.0)
[2022-09-21 14:54] LABS: OSMOLALITY SERUM 287 MOSM/KG (280-301)
[2022-09-21 14:58] LABS: ALBUMIN 2.9 G/DL (3.2-5.2); ALKALINE PHOSPHATASE 83 U/L (46-116); ALT/SGPT < 9 U/L (7.0-40); AST/SGOT 18 U/L (<34); BILIRUBIN,DIRECT 0.4 MG/DL (<0.4); BILIRUBIN,TOTAL 0.9 MG/DL (0.3-1.2); BLOOD UREA NITROGEN 12 MG/DL (9-23); CALCIUM LEVEL 9.8 MG/DL (8.3-10.6); CARBON DIOXIDE LEVEL 24 MMOL/L (20-31); CHLORIDE LEVEL 107 MMOL/L (98-107); CREATININE FOR GFR 1.43 MG/DL (0.70-1.30); GLUCOSE, FASTING 99 MG/DL (74-106); POTASSIUM SERUM 4.7 MMOL/L (3.5-5.1); SODIUM LEVEL 140 MMOL/L (136-145); TOTAL PROTEIN 5.6 G/DL (5.7-8.2)
[2022-09-21 15:00] LABS: THYROID STIMULATING HORMONE 3.153 uIU/ML (0.55-4.78)
[2022-09-21] MEDS ORDERED: LIDOCAINE 2% 5ML JELLY UROJET TOP ONE (15:20)
[2022-09-21] MEDS ORDERED: ISOVUE-370 76% 100ML VIAL As Ordered ONE (15:29)
[2022-09-21 16:20] LABS: RSV AMPLIFICATION NEGATIVE (NEGATIVE)
[2022-09-21] MEDS ORDERED: NS 500 ML IV ONE (17:35)
[2022-09-21 18:29] VITALS: TEMP 97.5
[2022-09-21 20:16] VITALS: BP 162/77; O2SAT 98
== END 2022-09-21 20:22 | disposition home or self-care (01) ==
LOC: M ED 11:43
DX: R41.0 Disorientation, unspecified (principal); K59.00 Constipation, unspecified; I31.39 Other pericardial effusion (noninflammatory); I11.9 Hypertensive heart disease without heart failure; I25.10 Atherosclerotic heart disease of native coronary artery without angina pectoris; I50.20 Unspecified systolic (congestive) heart failure; K57.92 Diverticulitis of intestine, part unspecified, without perforation or abscess without bleeding; M79.89 Other specified soft tissue disorders; Z86.718 Personal history of other venous thrombosis and embolism; I73.9 Peripheral vascular disease, unspecified; Z79.01 Long term (current) use of anticoagulants; Z79.899 Other long term (current) drug therapy
CPT/HCPCS: 51701; 71045; 71046; 74177; 80048; 80076; 81001; 82140; 83605; 83930; 84443; 85025; 87040; 87086; 87631; 93005; 93971; 99284; Q9967

== ENCOUNTER → 2022-09-21 | Outpatient (CLI) | payer MEDICARE, OTHER ==
[~2022-09-21] MED LIST changes: +COLA100C5 PO; +FERR324T12 PO; +ISTA0.5S OP; +MELA3TAB49 PO; +MILKSUS3 PO; +MIRA3350 PO
== END ==
LOC: M RAD 10:34
PROVIDERS: ATTEND Family Medicine
DX: M79.89 Other specified soft tissue disorders (principal)

== ENCOUNTER → 2022-10-19 | Outpatient (REF) | payer MEDICARE, OTHER ==
[~2022-10-19] MED LIST changes: +COLA100C5 PO; +FERR324T12 PO; +ISTA0.5S OP; +MELA3TAB49 PO; +MILKSUS3 PO; +MIRA3350 PO
[2022-10-19 10:40] LABS: HEMATOCRIT 29.6 % (42.0-52.0); HEMOGLOBIN 9.2 g/dl (13.5-17.5); MEAN CORPUSCULAR HEMOGLOBIN 29.6 pg (27.0-33.0); MEAN CORPUSCULAR HGB CONC 31.1 g/dl (32.0-36.5); MEAN CORPUSCULAR VOLUME 95.2 fl (80.0-96.0); PLATELET COUNT, AUTOMATED 357 10^3/uL (150-450); RED BLOOD COUNT 3.11 10^6/uL (4.30-6.10); WHITE BLOOD COUNT 7.3 10^3/uL (4.0-10.0)
[2022-10-19 11:27] LABS: CALCIUM LEVEL 8.7 MG/DL (8.3-10.6); CREATININE FOR GFR 1.23 MG/DL (0.70-1.30); FERRITIN 23.9 NG/ML (10.5-307.3); GLOMERULAR FILTRATION RATE 59.5 (>35); PERCENT SATURATION 13.1 % (19.7-50.0); POTASSIUM SERUM 3.9 MMOL/L (3.5-5.1)
== END ==
PROVIDERS: ATTEND Family Medicine
DX: N18.9 Chronic kidney disease, unspecified (principal); D63.1 Anemia in chronic kidney disease

== ENCOUNTER → 2022-11-30 | Outpatient (REF) | payer MEDICARE, OTHER | PROVIDERS: ATTEND Family Medicine | DX: D50.0 Iron deficiency anemia secondary to blood loss (chronic) (principal); Z53.8 Procedure and treatment not carried out for other reasons ==

== ENCOUNTER → 2023-03-17 | Outpatient (REF) | payer MEDICARE, OTHER ==
[2023-03-17 21:40] LABS: BILIRUBIN,TOTAL 0.6 MG/DL (0.3-1.2); CALCIUM LEVEL 8.8 MG/DL (8.3-10.6); CHOLESTEROL RISK RATIO 3.11 (<5); CREATININE FOR GFR 1.3 MG/DL (0.70-1.30); GLOMERULAR FILTRATION RATE 55.7 (>35); HDL CHOLESTEROL 46.3 MG/DL (>40); LDL CHOLESTEROL 79.3 MG/DL (<100); NON-HDL-C 97.7 MG/DL; PERCENT SATURATION 12.6 % (19.7-50.0); POTASSIUM SERUM 4.5 MMOL/L (3.5-5.1); TOTAL PROTEIN 5.7 G/DL (5.7-8.2)
[2023-03-17 21:42] LABS: FERRITIN 25.8 NG/ML (10.5-307.3); TOTAL 25(OH) VITAMIN D 32.7 NG/ML (20.0-100.0)
[2023-03-17 22:04] LABS: HEMATOCRIT 35.9 % (42.0-52.0); HEMOGLOBIN 11.2 g/dl (13.5-17.5); MEAN CORPUSCULAR HEMOGLOBIN 29.2 pg (27.0-33.0); MEAN CORPUSCULAR HGB CONC 31.2 g/dl (32.0-36.5); MEAN CORPUSCULAR VOLUME 93.7 fl (80.0-96.0); PLATELET COUNT, AUTOMATED 268 10^3/uL (150-450); RED BLOOD COUNT 3.83 10^6/uL (4.30-6.10); WHITE BLOOD COUNT 8.7 10^3/uL (4.0-10.0)
== END ==
LOC: M SFHCADAM 13:53
PROVIDERS: ATTEND Family Medicine
DX: I11.9 Hypertensive heart disease without heart failure (principal); E78.5 Hyperlipidemia, unspecified; N18.32 Chronic kidney disease, stage 3b; D50.0 Iron deficiency anemia secondary to blood loss (chronic); E53.8 Deficiency of other specified B group vitamins

== ENCOUNTER 2023-03-26 11:40 | Inpatient (IN) | payer MEDICARE, OTHER ==
[~2023-03-26] VITALS: Ht 167.6 cm; Wt 69.2 kg
[~2023-03-26 11:40] MED LIST changes: -ISTA0.5S OP; +ISTA0.5S OU
[2023-03-26 12:46] LABS: VENOUS BASE EXCESS -3.4 (-2.0-2.0); VENOUS HCO3 22.4 MMOL/L (23.0-27.0); VENOUS O2 SATURATION 76.8 % (60.0-80.0); VENOUS PARTIAL PRESSURE CO2 43.6 mmHg (38.0-50.0); VENOUS PARTIAL PRESSURE O2 42.7 mmHg (30.0-50.0); VENOUS PH 7.329 UNITS (7.330-7.430); VENOUS STANDARD HCO3 21.2 MMOL/L; VENOUS TOTAL CO2 23.8 MMOL/L (24.0-28.0)
[2023-03-26 12:51] LABS: BASO # 0.1 10^3/uL (0.0-0.2); BASO % 0.8 % (0.0-1.0); EOS # 0.3 10^3/uL (0.0-0.5); EOS % 3.6 % (0.0-3.0); HEMATOCRIT 32.2 % (42.0-52.0); HEMOGLOBIN 10.7 g/dl (13.5-17.5); LYMPH # 2.3 10^3/uL (1.5-5.0); LYMPH % 30.7 % (24.0-44.0); MEAN CORPUSCULAR HEMOGLOBIN 30.7 pg (27.0-33.0); MEAN CORPUSCULAR HGB CONC 33.2 g/dl (32.0-36.5); MEAN CORPUSCULAR VOLUME 92.3 fl (80.0-96.0); MONO # 0.7 10^3/uL (0.0-0.8); MONO % 9.9 % (2.0-8.0); NEUTROPHILS # 4.1 10^3/uL (1.5-8.5); NEUTROPHILS % 54.7 % (36.0-66.0); PLATELET COUNT, AUTOMATED 236 10^3/uL (150-450); RED BLOOD COUNT 3.49 10^6/uL (4.30-6.10); WHITE BLOOD COUNT 7.5 10^3/uL (4.0-10.0)
[2023-03-26 13:05] LABS: INR 1.71; PROTHROMBIN TIME 19.5 SECONDS (12.5-14.5)
[2023-03-26 13:22] LABS: ALBUMIN 3.1 G/DL (3.2-5.2); ALKALINE PHOSPHATASE 74 U/L (46-116); ALT/SGPT 11 U/L (7.0-40); AST/SGOT 14 U/L (<34); BILIRUBIN,DIRECT 0.3 MG/DL (<0.4); BILIRUBIN,TOTAL 0.7 MG/DL (0.3-1.2); BLOOD UREA NITROGEN 19 MG/DL (9-23); CALCIUM LEVEL 8.6 MG/DL (8.3-10.6); CARBON DIOXIDE LEVEL 26 MMOL/L (20-31); CHLORIDE LEVEL 108 MMOL/L (98-107); CPK CREATINE PHOSPHOKINASE 57 U/L (46-171); CREATININE FOR GFR 1.19 MG/DL (0.70-1.30); GLOMERULAR FILTRATION RATE > 60.0 (>35); GLUCOSE, FASTING 85 MG/DL (74-106); POTASSIUM SERUM 4.7 MMOL/L (3.5-5.1); SODIUM LEVEL 139 MMOL/L (136-145); TOTAL PROTEIN 5.4 G/DL (5.7-8.2)
[2023-03-26 13:25] LABS: CK-MB VALUE MASS < 1.0 NG/ML (<3.6); MB/CK RELATIVE INDEX 1.75 (< OR =4)
[2023-03-26 13:30] LABS: THYROID STIMULATING HORMONE 4.761 uIU/ML (0.55-4.78); THYROXINE (T4) 7.3 UG/DL (4.5-10.9)
[2023-03-26] MEDS ORDERED: ISOVUE-370 76% 100ML VIAL As Ordered ONE (13:55)
[2023-03-26] MEDS: FUROSEMIDE 40MG/4ML VIAL IV ONE (15:21)
[2023-03-26 15:28] LABS: CPK CREATINE PHOSPHOKINASE 41 U/L (46-171)
[2023-03-26 15:32] LABS: CK-MB VALUE MASS < 1.0 NG/ML (<3.6); MB/CK RELATIVE INDEX 2.43 (< OR =4)
[2023-03-26] MEDS: **hydrALAZINE HCL** 25 MG TAB PO SCH (18:00)
[2023-03-26] MEDS ORDERED: DOCU100C17 PO (18:02)
[2023-03-26] MEDS ORDERED: FERR1TAB8 PO (18:02)
[2023-03-26] MEDS ORDERED: POLY17PO10 PO (18:06)
[2023-03-26 18:11] VITALS: BP 142/58; TEMP 98.1
[2023-03-26] MEDS ORDERED: ACET650T15 PO (18:11)
[2023-03-26] MEDS ORDERED: ALBU6.7H6 INH (18:11)
[2023-03-26] MEDS ORDERED: ASPI81CH33 PO (18:11)
[2023-03-26] MEDS ORDERED: B-12100010 PO (18:12)
[2023-03-26] MEDS ORDERED: DONE10TA90 PO (18:21)
[2023-03-26] MEDS ORDERED: HOME MED LIST COMPLETE! XX SCH (18:25)
[2023-03-26] MEDS: SENOKOT S TAB PO SCH (20:08)
[2023-03-26 21:00] VITALS: BP 163/69; TEMP 98.8; O2SAT 93
[2023-03-26] MEDS: FUROSEMIDE 40MG/4ML VIAL IV SCH (22:05)
[2023-03-26] MEDS: ACETAMINOPHEN 650MG ER TAB (TYLENOL ARTHRITIS) PO SCH (22:57)
[2023-03-26 23:38] VITALS: BP 143/91; TEMP 99.5; O2SAT 93
[2023-03-26 23:43] VITALS: TEMP 98.3
[2023-03-27] MEDS: METOPROLOL TART 12.5 MG PER 1/2 TAB PO ONE (00:14)
[2023-03-27 01:05] VITALS: BP 120/65
[2023-03-27 01:30] LABS: BASO # 0.1 10^3/uL (0.0-0.2); EOS # 0.2 10^3/uL (0.0-0.5); EOS % 3.2 % (0.0-3.0); HEMATOCRIT 34.9 % (42.0-52.0); HEMOGLOBIN 11.4 g/dl (13.5-17.5); LYMPH # 1.7 10^3/uL (1.5-5.0); MEAN CORPUSCULAR HEMOGLOBIN 29.2 pg (27.0-33.0); MEAN CORPUSCULAR HGB CONC 32.7 g/dl (32.0-36.5); MEAN CORPUSCULAR VOLUME 89.3 fl (80.0-96.0); MONO # 0.8 10^3/uL (0.0-0.8); MONO % 11.3 % (2.0-8.0); NEUTROPHILS # 4.4 10^3/uL (1.5-8.5); NEUTROPHILS % 61.4 % (36.0-66.0); PLATELET COUNT, AUTOMATED 248 10^3/uL (150-450); RED BLOOD COUNT 3.91 10^6/uL (4.30-6.10); WHITE BLOOD COUNT 7.2 10^3/uL (4.0-10.0)
[2023-03-27 01:32] LABS: CK-MB VALUE MASS 1.1 NG/ML (<3.6); MB/CK RELATIVE INDEX 1.54 (< OR =4)
[2023-03-27 01:33] LABS: BILIRUBIN,TOTAL 0.8 MG/DL (0.3-1.2); CALCIUM LEVEL 9.1 MG/DL (8.3-10.6); CREATININE FOR GFR 1.27 MG/DL (0.70-1.30); GLOMERULAR FILTRATION RATE 57.2 (>35); MAGNESIUM LEVEL 1.7 MG/DL (1.8-2.4); TOTAL PROTEIN 5.7 G/DL (5.7-8.2)
[2023-03-27] MEDS: RIVAROXABAN 20MG TAB (XARELTO) PO SCH (04:48)
[2023-03-27] MEDS: MAG SULF 1GM/100ML (MAG RUN) 1 GM in IV 1 EA IV SCH (04:51)
[2023-03-27 05:32] VITALS: BP 134/51; TEMP 99; O2SAT 93
[2023-03-27 06:08] LABS: BASO # 0.1 10^3/uL (0.0-0.2); BASO % 1.1 % (0.0-1.0); EOS # 0.2 10^3/uL (0.0-0.5); EOS % 3.2 % (0.0-3.0); HEMATOCRIT 33.3 % (42.0-52.0); HEMOGLOBIN 10.9 g/dl (13.5-17.5); LYMPH # 1.6 10^3/uL (1.5-5.0); LYMPH % 24.5 % (24.0-44.0); MEAN CORPUSCULAR HEMOGLOBIN 29.9 pg (27.0-33.0); MEAN CORPUSCULAR HGB CONC 32.7 g/dl (32.0-36.5); MEAN CORPUSCULAR VOLUME 91.2 fl (80.0-96.0); MONO # 0.8 10^3/uL (0.0-0.8); MONO % 12.7 % (2.0-8.0); NEUTROPHILS # 3.8 10^3/uL (1.5-8.5); NEUTROPHILS % 58.3 % (36.0-66.0); PLATELET COUNT, AUTOMATED 245 10^3/uL (150-450); RED BLOOD COUNT 3.65 10^6/uL (4.30-6.10); WHITE BLOOD COUNT 6.5 10^3/uL (4.0-10.0)
[2023-03-27 06:35] LABS: CALCIUM LEVEL 9.1 MG/DL (8.3-10.6); CREATININE FOR GFR 1.3 MG/DL (0.70-1.30); GLOMERULAR FILTRATION RATE 55.7 (>35)
[2023-03-27] MEDS: MAGNESIUM OXIDE 400MG TAB (MAG-OX) PO SCH (08:58)
[2023-03-27] MEDS: MIRALAX *UNIT DOSE* 17GM PACKET PO SCH (08:58)
[2023-03-27] MEDS: ASPIRIN 81MG CHEW TABLET PO SCH (08:58)
[2023-03-27] MEDS: BENAZEPRIL 20 MG TAB PO SCH (08:59)
[2023-03-27 09:02] LABS: MAGNESIUM LEVEL 1.8 MG/DL (1.8-2.4)
[2023-03-27] MEDS: ACETAMINOPHEN 650MG ER TAB (TYLENOL ARTHRITIS) PO PRN (11:27)
[2023-03-27] MEDS: ALBUTEROL 90 MCG/ACT 8GM HFA INHALER INH PRN (11:34)
[2023-03-27 14:00] VITALS: BP 141/49; TEMP 96.8; O2SAT 93
[2023-03-27] MEDS: QUEtiapine FUMARATE 25 MG TAB PO SCH (17:52)
[2023-03-27 21:12] VITALS: BP 120/51; TEMP 98.1; O2SAT 93
[2023-03-28 05:35] VITALS: BP_SYST 138; BP_SYST 154; BP_DIAS 60; BP_DIAS 80; TEMP 98.8; O2SAT 93
[2023-03-28 05:52] LABS: BASO # 0.1 10^3/uL (0.0-0.2); BASO % 0.9 % (0.0-1.0); EOS # 0.3 10^3/uL (0.0-0.5); EOS % 4.7 % (0.0-3.0); HEMATOCRIT 33.5 % (42.0-52.0); LYMPH # 2.2 10^3/uL (1.5-5.0); LYMPH % 32.5 % (24.0-44.0); MEAN CORPUSCULAR HEMOGLOBIN 29.5 pg (27.0-33.0); MEAN CORPUSCULAR HGB CONC 32.8 g/dl (32.0-36.5); MEAN CORPUSCULAR VOLUME 89.8 fl (80.0-96.0); MONO # 0.9 10^3/uL (0.0-0.8); MONO % 13.8 % (2.0-8.0); NEUTROPHILS # 3.2 10^3/uL (1.5-8.5); NEUTROPHILS % 47.9 % (36.0-66.0); PLATELET COUNT, AUTOMATED 229 10^3/uL (150-450); RED BLOOD COUNT 3.73 10^6/uL (4.30-6.10); WHITE BLOOD COUNT 6.7 10^3/uL (4.0-10.0)
[2023-03-28 06:21] LABS: CALCIUM LEVEL 8.8 MG/DL (8.3-10.6); CREATININE FOR GFR 1.59 MG/DL (0.70-1.30); GLOMERULAR FILTRATION RATE 44.2 (>35)
[2023-03-28] MEDS: LIDOCAINE 5% OINT 30GM TUBE TOP PRN (11:22)
[2023-03-28 14:00] VITALS: BP 119/36; TEMP 97.3; O2SAT 97
[2023-03-28] MEDS: TORSEMIDE 20 MG TAB PO SCH (17:17)
[2023-03-28 20:27] VITALS: BP 100/37; TEMP 97.7; O2SAT 93
[2023-03-29] VITALS (8 sets, daily range): BP systolic 100–139; BP diastolic 42–56; TEMP 97.2–98.6; O2SAT 95–100
[2023-03-29 14:25] LABS: PH BODY FLUID 7.724 UNITS (NOT ESTABLISHED); SOURCE, BODY FLUID pH PLEURAL
[2023-03-29 14:29] LABS: APPEARANCE, BODY FLUID HAZY (CLEAR); PLEURAL FL COLOR PALE YELLOW (COLORLESS); SOURCE, BODY FLUID PLEURAL
[2023-03-29 15:01] LABS: SOURCE, BODY FLUID GLUCOSE PLEURAL
[2023-03-29 15:03] LABS: AMYLASE, BODY FLUID 76 U/L (NOT ESTABLISHED); LDH, BODY FLUID 141 U/L (NOT ESTABLISHED); SOURCE, BODY FLUID AMYLASE PLEURAL; SOURCE, BODY FLUID LDH PLEURAL
[2023-03-29 15:04] LABS: SOURCE, BODY FLUID TOT PROTEIN PLEURAL; TOTAL PROTEIN, BODY FLUID 3.2 G/DL (NOT ESTABLISHED)
[2023-03-29] MEDS: QUEtiapine FUMARATE 12.5 MG HALF-TAB PO SCH (17:02)
[2023-03-29] MEDS: oxyCODONE 5MG TAB PO PRN (21:21)
[2023-03-30 05:32] VITALS: BP 120/45; TEMP 99.3; O2SAT 97
[2023-03-30 06:22] LABS: BASO # 0.1 10^3/uL (0.0-0.2); BASO % 0.7 % (0.0-1.0); EOS # 0.2 10^3/uL (0.0-0.5); HEMATOCRIT 33.1 % (42.0-52.0); LYMPH # 2.4 10^3/uL (1.5-5.0); LYMPH % 28.7 % (24.0-44.0); MEAN CORPUSCULAR HEMOGLOBIN 29.8 pg (27.0-33.0); MEAN CORPUSCULAR HGB CONC 33.2 g/dl (32.0-36.5); MEAN CORPUSCULAR VOLUME 89.7 fl (80.0-96.0); MONO # 1.3 10^3/uL (0.0-0.8); MONO % 14.9 % (2.0-8.0); NEUTROPHILS # 4.5 10^3/uL (1.5-8.5); NEUTROPHILS % 53.6 % (36.0-66.0); PLATELET COUNT, AUTOMATED 251 10^3/uL (150-450); RED BLOOD COUNT 3.69 10^6/uL (4.30-6.10); WHITE BLOOD COUNT 8.4 10^3/uL (4.0-10.0)
[2023-03-30 06:54] LABS: CALCIUM LEVEL 8.1 MG/DL (8.3-10.6); CREATININE FOR GFR 2.07 MG/DL (0.70-1.30); GLOMERULAR FILTRATION RATE 32.6 (>35); POTASSIUM SERUM 4.4 MMOL/L (3.5-5.1)
[2023-03-30] MEDS ORDERED: oxyCODONE 5MG TAB PO PRN (11:35)
[2023-03-30 14:00] VITALS: BP 122/45; TEMP 98.8; O2SAT 96
[2023-03-30 22:00] VITALS: BP 122/45; TEMP 99.3; O2SAT 97
[2023-03-31 06:00] VITALS: BP 122/56; TEMP 98.6; O2SAT 96
[2023-03-31 06:40] LABS: BASO # 0.1 10^3/uL (0.0-0.2); BASO % 1.1 % (0.0-1.0); EOS # 0.4 10^3/uL (0.0-0.5); EOS % 5.6 % (0.0-3.0); HEMATOCRIT 32.4 % (42.0-52.0); HEMOGLOBIN 10.7 g/dl (13.5-17.5); LYMPH # 1.9 10^3/uL (1.5-5.0); LYMPH % 28.5 % (24.0-44.0); MEAN CORPUSCULAR VOLUME 90.8 fl (80.0-96.0); MONO # 1.1 10^3/uL (0.0-0.8); MONO % 16.8 % (2.0-8.0); NEUTROPHILS # 3.2 10^3/uL (1.5-8.5); NEUTROPHILS % 47.8 % (36.0-66.0); PLATELET COUNT, AUTOMATED 216 10^3/uL (150-450); RED BLOOD COUNT 3.57 10^6/uL (4.30-6.10); WHITE BLOOD COUNT 6.6 10^3/uL (4.0-10.0)
[2023-03-31 07:03] LABS: CALCIUM LEVEL 8.3 MG/DL (8.3-10.6); CREATININE FOR GFR 1.88 MG/DL (0.70-1.30); GLOMERULAR FILTRATION RATE 36.4 (>35); POTASSIUM SERUM 4.3 MMOL/L (3.5-5.1)
[2023-03-31] MEDS ORDERED: TORS20TA2 PO (08:03)
[2023-03-31] MEDS ORDERED: METO5TA PO (10:02)
== END 2023-03-31 13:36 | disposition home or self-care (01) | DRG 186 ==
LOC: EDBD 11:40 → M ED 11:40 → M ED INP 16:11 → INTOOBSV 16:11 → ENRESERV 16:28 → M MSPAV 18:08 → OBSVTOIN 03-27 17:20
PROVIDERS: ADMIT Internal Medicine Nephrology; ATTEND Internal Medicine Nephrology
PROC: B246ZZZ Ultrasonography of Right and Left Heart (ICD-10-PCS; 2023-03-28)
PROC: 0W993ZZ Drainage of Right Pleural Cavity, Percutaneous Approach (ICD-10-PCS; principal; 2023-03-29 16:00)
DX: J90 Pleural effusion, not elsewhere classified (principal); I50.23 Acute on chronic systolic (congestive) heart failure; I13.0 Hypertensive heart and chronic kidney disease with heart failure and stage 1 through stage 4 chronic kidney disease, or unspecified chronic kidney disease; N17.9 Acute kidney failure, unspecified; I47.20 Ventricular tachycardia, unspecified; R18.8 Other ascites; G30.9 Alzheimer's disease, unspecified; Z86.711 Personal history of pulmonary embolism; Z86.718 Personal history of other venous thrombosis and embolism; F02.80 Dementia in other diseases classified elsewhere, unspecified severity, without behavioral disturbance, psychotic disturbance, mood disturbance, and anxiety; E78.00 Pure hypercholesterolemia, unspecified; M35.3 Polymyalgia rheumatica; R91.1 Solitary pulmonary nodule; M19.90 Unspecified osteoarthritis, unspecified site; E55.9 Vitamin D deficiency, unspecified; M51.36 Other intervertebral disc degeneration, lumbar region; M51.34 Other intervertebral disc degeneration, thoracic region; N40.0 Benign prostatic hyperplasia without lower urinary tract symptoms; N18.30 Chronic kidney disease, stage 3 unspecified; D50.9 Iron deficiency anemia, unspecified; Z96.652 Presence of left artificial knee joint; I27.20 Pulmonary hypertension, unspecified

== ENCOUNTER → 2023-04-05 | Outpatient (REF) | payer MEDICARE, OTHER ==
[~2023-04-05] MED LIST changes: +ACET650T15 PO; +ALBU6.7H6 INH; +ASPI81CH33 PO; +B-12100010 PO; +DOCU100C17 PO; +DONE10TA90 PO; +FERR1TAB8 PO; +METO5TA PO; +POLY17PO10 PO; +TORS20TA2 PO
[2023-04-05 15:00] LABS: CALCIUM LEVEL 8.5 MG/DL (8.3-10.6); CREATININE FOR GFR 1.43 MG/DL (0.70-1.30); GLOMERULAR FILTRATION RATE 49.9 (>35); POTASSIUM SERUM 4.9 MMOL/L (3.5-5.1)
== END ==
LOC: M SHH 13:03
PROVIDERS: ATTEND Internal Medicine Nephrology
DX: I50.9 Heart failure, unspecified (principal)

== ENCOUNTER → 2023-04-08 | Outpatient (REF) | payer MEDICARE, OTHER ==
[2023-04-08 13:12] LABS: BILIRUBIN,TOTAL 0.5 MG/DL (0.3-1.2); CREATININE FOR GFR 1.66 MG/DL (0.70-1.30); POTASSIUM SERUM 4.7 MMOL/L (3.5-5.1); TOTAL PROTEIN 5.9 G/DL (5.7-8.2)
[2023-04-08 13:25] LABS: HEMOGLOBIN 11.3 g/dl (13.5-17.5); MEAN CORPUSCULAR HEMOGLOBIN 29.2 pg (27.0-33.0); MEAN CORPUSCULAR HGB CONC 31.4 g/dl (32.0-36.5); PLATELET COUNT, AUTOMATED 328 10^3/uL (150-450); RED BLOOD COUNT 3.87 10^6/uL (4.30-6.10); WHITE BLOOD COUNT 7.3 10^3/uL (4.0-10.0)
== END ==
LOC: M SFHCADAM 09:05
PROVIDERS: ATTEND Family Medicine
DX: I50.810 Right heart failure, unspecified (principal); Z79.899 Other long term (current) drug therapy

== ENCOUNTER → 2023-04-08 | Outpatient (CLI) | payer MEDICARE, OTHER | LOC: M ADAMS 09:29 | PROVIDERS: ATTEND Family Medicine | DX: I50.810 Right heart failure, unspecified (principal) ==

== ENCOUNTER → 2023-05-13 | Outpatient (REF) | payer MEDICARE, OTHER ==
[2023-05-13 17:48] LABS: APPEARANCE, URINE CLEAR (CLEAR); BACTERIA, URINE AUTO NEGATIVE (NEGATIVE); BILIRUBIN, URINE AUTO NEGATIVE (NEGATIVE); BLOOD, URINE BLOOD 2+ (NEGATIVE); COLOR, URINE STRAW (YELLOW); GLUCOSE, URINE (UA) AUTO NEGATIVE (NEGATIVE); KETONE, URINE AUTO NEGATIVE (NEGATIVE); LEUKOCYTE ESTERASE, URINE AUTO NEGATIVE (NEGATIVE); MUCUS, URINE SMALL (NEGATIVE); NITRITE, URINE AUTO NEGATIVE (NEGATIVE); PROTEIN, URINE AUTO NEGATIVE (NEGATIVE); RBC, URINE AUTO 6 /HPF (0-3); SPECIFIC GRAVITY URINE AUTO 1.009 (1.002-1.035); SQUAMOUS EPITHELIAL CELL UR AU 0 /HPF (0-6); UROBILINOGEN, URINE AUTO 0.2 mg/dL (0.0-2.0); WBC, URINE AUTO 0 /HPF (0-3)
[2023-05-13 18:00] LABS: BASO # 0.1 10^3/uL (0.0-0.2); BASO % 1.1 % (0.0-1.0); EOS # 0.4 10^3/uL (0.0-0.5); EOS % 4.6 % (0.0-3.0); HEMATOCRIT 36.7 % (42.0-52.0); HEMOGLOBIN 11.3 g/dl (13.5-17.5); LYMPH # 2.4 10^3/uL (1.5-5.0); LYMPH % 26.5 % (24.0-44.0); MEAN CORPUSCULAR HEMOGLOBIN 30.1 pg (27.0-33.0); MEAN CORPUSCULAR HGB CONC 30.8 g/dl (32.0-36.5); MEAN CORPUSCULAR VOLUME 97.6 fl (80.0-96.0); MONO # 0.8 10^3/uL (0.0-0.8); MONO % 8.7 % (2.0-8.0); NEUTROPHILS # 5.3 10^3/uL (1.5-8.5); NEUTROPHILS % 58.9 % (36.0-66.0); PLATELET COUNT, AUTOMATED 363 10^3/uL (150-450); RED BLOOD COUNT 3.76 10^6/uL (4.30-6.10)
[2023-05-13 18:07] LABS: ERYTHROCYTE SEDIMENTATION RATE 27 mm/hr (0-20)
[2023-05-13 18:13] LABS: FREE T4 0.88 NG/DL (0.89-1.76)
[2023-05-13 18:14] LABS: C REACTIVE PROTEIN QUANTITATIV 0.8 MG/DL (<1.0); FERRITIN 24.7 NG/ML (10.5-307.3); THYROID STIMULATING HORMONE 4.958 uIU/ML (0.55-4.78)
[2023-05-13 18:15] LABS: PERCENT SATURATION 19.2 % (19.7-50.0)
[2023-05-13 18:16] LABS: ALBUMIN 3.3 G/DL (3.2-5.2); BILIRUBIN,TOTAL 0.6 MG/DL (0.3-1.2); CALCIUM LEVEL 9.4 MG/DL (8.3-10.6); CREATININE FOR GFR 1.62 MG/DL (0.70-1.30); GLOMERULAR FILTRATION RATE 43.2 (>35); POTASSIUM SERUM 5.4 MMOL/L (3.5-5.1); TOTAL PROTEIN 6.1 G/DL (5.7-8.2)
== END ==
LOC: M SFHCADAM 11:04
PROVIDERS: ATTEND Family Medicine
DX: R61 Generalized hyperhidrosis (principal); J90 Pleural effusion, not elsewhere classified; I50.810 Right heart failure, unspecified; D50.0 Iron deficiency anemia secondary to blood loss (chronic); N20.0 Calculus of kidney

== ENCOUNTER → 2023-05-13 | Outpatient (CLI) | payer MEDICARE, OTHER | LOC: M ADAMS 11:16 | PROVIDERS: ATTEND Family Medicine | DX: R61 Generalized hyperhidrosis (principal); J90 Pleural effusion, not elsewhere classified; J98.11 Atelectasis ==

== ENCOUNTER → 2023-07-20 | Outpatient (REF) | payer MEDICARE, OTHER ==
[2023-07-20 16:03] LABS: RSV AMPLIFICATION NEGATIVE (NEGATIVE)
== END ==
PROVIDERS: ATTEND Family Medicine
DX: R05.9 Cough, unspecified (principal); R09.89 Other specified symptoms and signs involving the circulatory and respiratory systems

== ENCOUNTER → 2023-08-26 | Outpatient (CLI) | payer MEDICARE, OTHER | LOC: M PLALAB 13:35 | PROVIDERS: ATTEND Family Medicine | DX: D50.0 Iron deficiency anemia secondary to blood loss (chronic) (principal); R61 Generalized hyperhidrosis; F51.04 Psychophysiologic insomnia; I50.810 Right heart failure, unspecified ==

== ENCOUNTER → 2023-08-26 | Outpatient (CLI) | payer MEDICARE, OTHER | LOC: M ADAMS 13:12 | PROVIDERS: ATTEND Family Medicine | DX: R91.8 Other nonspecific abnormal finding of lung field (principal) ==

== ENCOUNTER → 2023-08-26 | Outpatient (REF) | payer MEDICARE, OTHER ==
[2023-08-26 18:03] LABS: BASO # 0.1 10^3/uL (0.0-0.2); BASO % 1.1 % (0.0-1.0); EOS # 0.6 10^3/uL (0.0-0.5); HEMATOCRIT 38.5 % (42.0-52.0); HEMOGLOBIN 12.2 g/dl (13.5-17.5); LYMPH # 2.6 10^3/uL (1.5-5.0); MEAN CORPUSCULAR HEMOGLOBIN 30.4 pg (27.0-33.0); MEAN CORPUSCULAR HGB CONC 31.7 g/dl (32.0-36.5); MONO # 1.1 10^3/uL (0.0-0.8); NEUTROPHILS # 4.8 10^3/uL (1.5-8.5); NEUTROPHILS % 52.7 % (36.0-66.0); PLATELET COUNT, AUTOMATED 259 10^3/uL (150-450); RED BLOOD COUNT 4.01 10^6/uL (4.30-6.10); WHITE BLOOD COUNT 9.1 10^3/uL (4.0-10.0)
[2023-08-26 18:04] LABS: FREE T4 0.93 NG/DL (0.89-1.76)
[2023-08-26 18:05] LABS: THYROID STIMULATING HORMONE 4.472 uIU/ML (0.55-4.78)
[2023-08-26 18:08] LABS: C REACTIVE PROTEIN QUANTITATIV 1.4 MG/DL (<1.0)
[2023-08-26 18:10] LABS: ALBUMIN 3.3 G/DL (3.2-5.2); BILIRUBIN,TOTAL 0.5 MG/DL (0.3-1.2); CALCIUM LEVEL 9.1 MG/DL (8.3-10.6); CREATININE FOR GFR 1.67 MG/DL (0.70-1.30); GLOMERULAR FILTRATION RATE 41.7 (>35); PERCENT SATURATION 19.4 % (19.7-50.0); TOTAL PROTEIN 6.1 G/DL (5.7-8.2)
== END ==
LOC: M SFHCADAM 11:59
PROVIDERS: ATTEND Family Medicine
DX: R61 Generalized hyperhidrosis (principal); I50.810 Right heart failure, unspecified; D50.0 Iron deficiency anemia secondary to blood loss (chronic); F51.04 Psychophysiologic insomnia

== ENCOUNTER → 2024-02-25 | Outpatient (REF) | payer MEDICARE, OTHER ==
[2024-02-25 18:56] LABS: HEMATOCRIT 41.6 % (42.0-52.0); HEMOGLOBIN 13.1 g/dl (13.5-17.5); MEAN CORPUSCULAR HEMOGLOBIN 30.6 pg (27.0-33.0); MEAN CORPUSCULAR HGB CONC 31.5 g/dl (32.0-36.5); MEAN CORPUSCULAR VOLUME 97.2 fl (80.0-96.0); PLATELET COUNT, AUTOMATED 251 10^3/uL (150-450); RED BLOOD COUNT 4.28 10^6/uL (4.30-6.10); WHITE BLOOD COUNT 9.6 10^3/uL (4.0-10.0)
[2024-02-25 19:04] LABS: FREE T4 1.12 NG/DL (0.89-1.76); THYROID STIMULATING HORMONE 3.708 uIU/ML (0.55-4.78)
[2024-02-25 19:05] LABS: RHEUMATOID FACTOR QUANT 5.2 IU/ML (<14)
[2024-02-25 19:07] LABS: ALBUMIN 3.7 G/DL (3.2-5.2); ALKALINE PHOSPHATASE 73 U/L (40-129); ALT/SGPT 15 U/L (7.0-40); AST/SGOT 11 U/L (<34); BILIRUBIN,TOTAL 0.5 MG/DL (0.3-1.2); BLOOD UREA NITROGEN 64 MG/DL (9-23); C REACTIVE PROTEIN QUANTITATIV < 0.50 MG/DL (<1.0); CALCIUM LEVEL 9.2 MG/DL (8.3-10.6); CARBON DIOXIDE LEVEL 30 MMOL/L (20-31); CHLORIDE LEVEL 104 MMOL/L (98-107); CHOLESTEROL LEVEL 170 MG/DL (<200); CHOLESTEROL RISK RATIO 3.13 (<5); CREATININE FOR GFR 2.47 MG/DL (0.70-1.30); GLOMERULAR FILTRATION RATE 26.5 (>35); GLUCOSE, FASTING 85 MG/DL (74-106); HDL CHOLESTEROL 54.3 MG/DL (>40); LDL CHOLESTEROL 83.9 MG/DL (<100); NON-HDL-C 115.7 MG/DL; POTASSIUM SERUM 4.6 MMOL/L (3.5-5.1); SODIUM LEVEL 144 MMOL/L (136-145); TOTAL PROTEIN 6.5 G/DL (5.7-8.2); TRIGLYCERIDES LEVEL 159 MG/DL (<150)
[2024-02-28 14:52] LABS: ANA SCREEN, IFA NEGATIVE (NEGATIVE)
[2024-02-28 23:37] LABS: CYCLIC CITRULLINATED PEPTIDE < 16 UNITS (<20)
== END ==
LOC: M SFHCADAM 11:50
PROVIDERS: ATTEND Family Medicine
DX: M06.00 Rheumatoid arthritis without rheumatoid factor, unspecified site (principal); N18.32 Chronic kidney disease, stage 3b; E78.5 Hyperlipidemia, unspecified

== ENCOUNTER → 2024-03-17 | Outpatient (CLI) | payer MEDICARE, OTHER ==
[~2024-03-17] MED LIST changes: +BARIUM SULFATE 700 MG TABLET (E-Z-DISK) As Ordered ONE; +E-Z-PAQUE 96% w/w SUSP 176GM BTL As Ordered ONE; +VARIBAR NECTAR 40% w/v 240ML SUSP BTL As Ordered ONE; +VARIBAR PUDDING 40% w/v 230ML TUBE As Ordered ONE
== END ==
LOC: M RAD 12:27
PROVIDERS: ATTEND Otolaryngology
DX: R13.10 Dysphagia, unspecified (principal)

== ENCOUNTER 2024-10-16 13:26 | Emergency (ER) | payer MEDICARE, OTHER ==
[~2024-10-16] VITALS: Ht 167.6 cm; Wt 70.0 kg
[~2024-10-16 13:26] MED LIST changes: +ACET-1515 PO; -ACET650T15 PO; -BARIUM SULFATE 700 MG TABLET (E-Z-DISK) As Ordered ONE; -E-Z-PAQUE 96% w/w SUSP 176GM BTL As Ordered ONE; -FLOM0.4C39 PO; +PRED-1142 PO; -PRED1TABL PO; +TAMS-18 PO; -VARIBAR NECTAR 40% w/v 240ML SUSP BTL As Ordered ONE; -VARIBAR PUDDING 40% w/v 230ML TUBE As Ordered ONE
[2024-10-16 13:58] VITALS: BP 207/86; TEMP 98.1; O2SAT 98
[2024-10-16 14:13] LABS: BASO # 0.1 10^3/uL (0.0-0.2); BASO % 0.6 % (0.0-1.0); EOS # 0.1 10^3/uL (0.0-0.5); EOS % 1.0 % (0.0-3.0); LYMPH # 1.5 10^3/uL (1.5-5.0); LYMPH % 15.9 % (24.0-44.0); MONO # 0.7 10^3/uL (0.0-0.8); MONO % 7.7 % (2.0-8.0); NEUTROPHILS # 7.1 10^3/uL (1.5-8.5); NEUTROPHILS % 74.1 % (36.0-66.0); PLATELET COUNT, AUTOMATED 233 10^3/uL (150-450)
[2024-10-16] MEDS ORDERED: MIRT-89 PO (14:27)
[2024-10-16] MEDS ORDERED: TORS20TA2 PO (14:27)
[2024-10-16] MEDS ORDERED: METO5TA PO (14:27)
[2024-10-16] MEDS ORDERED: ASPI81TA26 PO (14:27)
[2024-10-16] MEDS ORDERED: ALBU8.5H INH (14:30)
[2024-10-16 14:32] LABS: INR 1.0
[2024-10-16] MEDS ORDERED: HOME MED LIST COMPLETE! XX SCH (14:35)
[2024-10-16 14:49] LABS: ALT/SGPT 24.0 U/L (7.0-40); AST/SGOT 19.0 U/L (<34); CALCIUM LEVEL 9.3 MG/DL (8.3-10.6); CARBON DIOXIDE LEVEL 32.0 MMOL/L (20-31); CHLORIDE LEVEL 104.0 MMOL/L (98-107); CREATININE FOR GFR 2.01 MG/DL (0.70-1.30); GLOMERULAR FILTRATION RATE 31.5 (>35); POTASSIUM SERUM 4.9 MMOL/L (3.5-5.1); SODIUM LEVEL 144.0 MMOL/L (136-145)
[2024-10-16 14:51] LABS: THYROXINE (T4) 6.5 UG/DL (4.5-10.9)
[2024-10-16 15:54] VITALS: O2SAT 96
== END 2024-10-16 16:26 | disposition home or self-care (01) ==
LOC: M ED 13:26
DX: R06.00 Dyspnea, unspecified (principal); T38.0X5A Adverse effect of glucocorticoids and synthetic analogues, initial encounter; I11.0 Hypertensive heart disease with heart failure; E78.5 Hyperlipidemia, unspecified; N18.30 Chronic kidney disease, stage 3 unspecified; K57.30 Diverticulosis of large intestine without perforation or abscess without bleeding; Z86.711 Personal history of pulmonary embolism; Z86.718 Personal history of other venous thrombosis and embolism; N40.0 Benign prostatic hyperplasia without lower urinary tract symptoms; F03.90 Unspecified dementia, unspecified severity, without behavioral disturbance, psychotic disturbance, mood disturbance, and anxiety; Z87.891 Personal history of nicotine dependence

== ENCOUNTER 2024-11-12 18:12 | Emergency (ER) | payer MEDICARE, OTHER ==
[~2024-11-12] VITALS: Ht 167.6 cm; Wt 90.9 kg
[~2024-11-12 18:12] MED LIST changes: +ALBU8.5H INH; +ASPI81TA26 PO; +MIRT-89 PO
[2024-11-12] MEDS: LIDOCAINE W/EPINEPHrine 1% 20 ML VIAL SC ONE (19:00)
[2024-11-12] MEDS ORDERED: AMOX875T2 PO (19:29)
[2024-11-12] MEDS: AUGMENTIN 875 MG TAB PO ONE (19:40)
[2024-11-12 19:49] LABS: BASO # 0.0 10^3/uL (0.0-0.2); BASO % 0.3 % (0.0-1.0); EOS # 0.1 10^3/uL (0.0-0.5); EOS % 0.7 % (0.0-3.0); LYMPH # 2.7 10^3/uL (1.5-5.0); LYMPH % 23.3 % (24.0-44.0); MONO # 1.0 10^3/uL (0.0-0.8); MONO % 8.5 % (2.0-8.0); NEUTROPHILS # 7.8 10^3/uL (1.5-8.5); NEUTROPHILS % 66.5 % (36.0-66.0); PLATELET COUNT, AUTOMATED 270 10^3/uL (150-450)
[2024-11-12] MEDS: TETANUS/DIPHTH/ACEL. PERTUSSIS 0.5 ML SYR IM.IMMUN ONE (20:24)
[2024-11-12 21:02] VITALS: BP 182/68; TEMP 96.7; O2SAT 96
== END 2024-11-12 20:51 | disposition home or self-care (01) ==
LOC: M ED 18:12
DX: S01.511A Laceration without foreign body of lip, initial encounter (principal); I12.9 Hypertensive chronic kidney disease with stage 1 through stage 4 chronic kidney disease, or unspecified chronic kidney disease; N40.0 Benign prostatic hyperplasia without lower urinary tract symptoms; M54.9 Dorsalgia, unspecified; E78.5 Hyperlipidemia, unspecified; Z86.718 Personal history of other venous thrombosis and embolism; Z96.651 Presence of right artificial knee joint; Z79.82 Long term (current) use of aspirin; Z79.899 Other long term (current) drug therapy